=== PATIENT | female | born 1955 | race Caucasian/White ===

== ENCOUNTER 2023-03-22 07:47 | Outpatient (OUT) | payer MEDICARE, MEDICAID, SELFPAY ==
--- NOTE | 2023-03-22 08:12 | CT_ITS ---
[address] [address] Patient Name: OLIVIA RASCON MRN: [id number] date: 1955 Sex: F Assigned Patient Location: CT Current Patient Location: CT Accession/Order Number: [id number] Exam Date: 03/22/2023 08:00 Report Date: 03/22/2023 09:00 At the request of: KIERSTEN ÁLVAREZ Procedure: CT chest high res EXAMINATION: CT chest high res HISTORY: Chronic Cough R05.3 COMPARISON: No relevant comparison available. TECHNIQUE: Axial images were obtained at 10 mm intervals during inspiration and expiration in the supine and prone positions. No IV contrast given. Dose reduction techniques were achieved by using automated exposure control and/or adjustment of mA and/or kV according to patient size and/or use of iterative reconstruction technique. FINDINGS: LUNGS: No emphysema, subpleural honeycombing or intralobular septal thickening is observed. Some minimal linear opacities medial right lower lobe, atelectasis or scar. Few scattered punctate pulmonary nodules partially visualized, nonspecific PLEURA: No mass, effusion, or pneumothorax. DENNIS: No mass or adenopathy. MEDIASTINUM: No mass or adenopathy. CHEST WALL: No mass or axillary adenopathy LIMITED ABDOMEN: No suspicious findings. Limited images of the upper abdomen. OTHER: Negative. IMPRESSION: No significant interstitial lung disease Electronically authenticated by: DEVON CORTÉS Date: 03/22/2023 09:00
[2023-03-22 08:32] LABS: Basophils Absolute Auto 0.1 10^3/uL (0.0-0.1); Basophils Percent Auto 1.3 % (0.2-2.0); Eosinophils Absolute Auto 0.2 10^3/uL (0.0-0.7); Eosinophils Percent Auto 2.8 % (0.9-7.0); Hematocrit 38.8 % (36.0-48.0); Hemoglobin 12.7 g/dL (12.0-16.0); Immature Granulocytes Abs Auto 0.03 10^3/uL (0.00-0.03); Immature Granulocytes Pct Auto 0.6 % (0.0-0.5); Lymphocytes Absolute Auto 1.3 10^3/uL (1.2-3.8); Lymphocytes Percent Auto 23.6 % (20.5-60.0); Mean Corpuscular HGB Conc 32.7 g/dL (29.9-35.2); Mean Corpuscular Hemoglobin 31.4 pg (26.7-34.0); Mean Corpuscular Volume 95.8 fL (81.0-99.0); Mean Platelet Volume 8.5 fL (9.5-13.5); Monocytes Absolute Auto 0.4 10^3/uL (0.3-0.8); Monocytes Percent Auto 8.2 % (1.7-12.0); Neutrophils Absolute Auto 3.4 10^3/uL (1.4-6.5); Neutrophils Percent Auto 63.5 % (43.0-75.0); Platelet Count 188 10^3/uL (150-450); Red Blood Count 4.05 10^6/uL (4.20-5.40); Red Cell Distribution Width 13.7 % (11.0-15.0); White Blood Count 5.3 10^3/uL (4.0-11.0)
--- NOTE | 2023-03-22 09:44 | RT_ITS ---
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 Findings were considered accurate and reproducible, with exception of DLCO which did not meet ATS standards. Both pre- and post-bronchodilator values utilized for spirometry. No prior studies available for comparison. Spirometry (based on pre-bronchodilator values): -FEV1/FVC: Normal @ 83% -FEV1: Reduced @ 76% -FVC: Mild-moderately reduced @ 70% -There is a partial bronchodilator response in FVC which meets ~200mL increase but <12% change. Lung volumes by plethysmography (based on pre-bronchodilator values): -RV: Normal @ 88% -TLC: Normal @ 95% Diffusion capacity: -DLCO: Mild reduction @ 77% when corrected for Hb 12.7g/dL Flow-volume loop: -Mild restrictive pattern Impressions: -Mild-moderate restrictive pattern on spirometry without evidence of actual restriction based on normal lung volumes - this is consistent with an obesity pattern (stated BMI 48.1). Mild diffusion impairment. The restriction may be obscuring an underlying obstruction such as COPD or asthma. Clinical correlation required. Electronically Signed On 03-27-2023 7:52:49 EDT by Shahriar Luciano
[2023-03-22] MEDS: ALBUTEROL SULFATE 2.5 MG/3 ML VIAL NEB IH (10:03)
[2023-03-29 00:06] LABS: Immunoglobulin E, Total 15 IU/mL (6-495)
== END 2023-03-22 07:48 | disposition home or self-care (01) ==
LOC: CT 07:47
PROVIDERS: PCP Family Medicine; Visit Provider Internal Medicine
DX: R05.3 Chronic cough (principal); J44.9 Chronic obstructive pulmonary disease, unspecified; J30.2 Other seasonal allergic rhinitis
CPT/HCPCS: 36415; 71250; 82785; 85025; 94060; 94726; 94729

== ENCOUNTER 2023-05-14 07:56 | Outpatient (OUT) | payer MEDICARE, MEDICAID, SELFPAY ==
--- NOTE | 2023-05-14 08:20 | XR_ITS ---
The [address] [address] Patient Name: OLIVIA RASCON MRN: [id number] date: 1955 Sex: F Assigned Patient Location: [facility] Current Patient Location: [facility] Accession/Order Number: [id number] Exam Date: 05/14/2023 08:12 Report Date: 05/14/2023 08:57 At the request of: JO-ANN LEAVITT Procedure: XR DEXA axial skeleton EXAMINATION: XR DEXA axial skeleton HISTORY: Primary Ovarian Failure COMPARISON: No relevant comparison available. TECHNIQUE: Dual-energy X-ray absorptiometry (DXA) was performed. FINDINGS: SPINE ANALYSIS: Average bone mineral density is 1.460 g/cm2. T-score (standard deviation relative to young adult mean): 2.2 . HIP ANALYSIS: Lowest bone mineral density is within the right femoral neck, 0.931 g/cm2. T-score (standard deviation relative to young adult mean): -0.8 . XR/XR DEXA axial skeleton IMPRESSION: [employer] Classification: Normal - Low Fracture Risk Electronically authenticated by: CRYS HERRERA Date: 05/14/2023 08:57
== END 2023-05-14 07:57 | disposition home or self-care (01) ==
LOC: RAD 07:56
PROVIDERS: PCP Family Medicine; Visit Provider Family Medicine
DX: E28.39 Other primary ovarian failure (principal)
CPT/HCPCS: 77080

== ENCOUNTER 2024-01-15 14:30 | Outpatient (OUT) | payer MEDICARE, MEDICAID, SELFPAY ==
--- NOTE | 2024-01-15 | XR_ITS ---
The [address] [address] Patient Name: OLIVIA RASCON MRN: [id number] date: 1955 Sex: F Assigned Patient Location: Current Patient Location: CARD Accession/Order Number: [id number] Exam Date: 01/15/2024 14:32 Report Date: 01/17/2024 05:16 At the request of: NAM PATTERSON Procedure: XR foot JEWEL min 3V EXAMINATION: XR foot JEWEL min 3V HISTORY: BILATERAL FOOT PAIN ; bilateral second digit hammertoe COMPARISON: No relevant comparison available. FINDINGS: RIGHT FINDINGS: BONES: Flexion of the second toe without appreciable joint abnormality. No fracture, dislocation, bone lesion. SOFT TISSUES: No visible soft tissue swelling. OTHER: Negative. LEFT FINDINGS: BONES: Flexion of the second toe without appreciable joint abnormality. Mild degenerative changes of the first metatarsophalangeal joint. Small calcaneal plantar spur. SOFT TISSUES: No visible soft tissue swelling. OTHER: Negative. XR/XR foot JEWEL min 3V IMPRESSION: RIGHT CONCLUSION: No acute bone abnormality. Flexion of second toe consistent with patient history. LEFT CONCLUSION: Flexion of second toe consistent with patient history. Mild degenerative changes of the first metatarsophalangeal joint. Electronically authenticated by: CRYS HERRERA Date: 01/17/2024 05:16
== END 2024-01-15 14:31 | disposition home or self-care (01) ==
LOC: EC 14:30
PROVIDERS: PCP Family Medicine; Visit Provider Podiatrist Foot & Ankle Surgery
DX: M79.671 Pain in right foot (principal); M79.672 Pain in left foot
CPT/HCPCS: 73630

== ENCOUNTER 2024-01-31 12:48 | Outpatient (OUT) | payer MEDICARE, MEDICAID, SELFPAY ==
--- NOTE | 2024-01-31 13:00 | CA_ITS ---
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 Right: - no significant pressure gradient between cuffs - normal [place] Left: - significant pressure gradient between the calf and DP cuffs - normal [place] Impression: - normal arterial evaluation of the lower extremities without hemodynamic impairment of the B/L lower extremities at rest. Right AZ 1.12, left AZ 1.12. - normal B/L TBI Electronically Signed On 02-01-2024 8:15:06 EDT by SALVATORE BISHOP
--- OUTSIDE RECORDS SUMMARY | 2024-01-31 13:09 | XMS_ITS | CCD ---
Author Organization [facility] Care Team Providers Care Retail Sales Associate Bilingual Name Role Phone Phuc Omalley Unavailable AICHHOLZ, PIPE FITTER WELDING ALTA Admitting Unavailable AICHHOLZ, PIPE FITTER WELDING ALTA Primary Care Unavailable AICHHOLZ, PIPE FITTER WELDING ALTA Attending Unavailable AICHHOLZ, PIPE FITTER WELDING ALTA Consulting Unavailable AICHHOLZ, PIPE FITTER WELDING ALTA Admitting Unavailable AICHHOLZ, PIPE FITTER WELDING ALTA Attending Unavailable AICHHOLZ, PIPE FITTER WELDING ALTA Consulting Unavailable AICHHOLZ, PIPE FITTER WELDING ALTA Primary Care Unavailable HOY ., DR CANTU Admitting Unavailable HOY ., DR CANTU Attending Unavailable HOY ., DR CANTU Consulting Unavailable AICHHOLZ, PIPE FITTER WELDING ALTA Primary Care Unavailable AICHHOLZ, PIPE FITTER WELDING ALTA Admitting Unavailable AICHHOLZ, PIPE FITTER WELDING ALTA Attending Unavailable AICHHOLZ, PIPE FITTER WELDING ALTA Primary Care Unavailable SAMSA ., KIERSTEN Attending Unavailable SAMSA ., KIERSTEN Consulting Unavailable SAMSA ., KIERSTEN Admitting Unavailable AICHHOLZ, PIPE FITTER WELDING ALTA Primary Care Unavailable AICHHOLZ, PIPE FITTER WELDING ALTA Primary Care Unavailable DR DEVON ALCANTARA V Consulting Unavailable AICHHOLZ, PIPE FITTER WELDING ALTA Admitting Unavailable AICHHOLZ, PIPE FITTER WELDING ALTA Referring Unavailable AICHHOLZ, PIPE FITTER WELDING ALTA Attending Unavailable AICHHOLZ, PIPE FITTER WELDING ALTA Consulting Unavailable AICHHOLZ, PIPE FITTER WELDING ALTA Primary Care Unavailable SAMSA ., KIERSTEN Attending Unavailable SAMSA ., KIERSTEN Consulting Unavailable SAMSA ., KIERSTEN Admitting Unavailable OLVIN BARRY Consulting Unavailable SAMSA ., KIERSTEN Attending Unavailable AICHHOLZ, PIPE FITTER WELDING ALTA Primary Care Unavailable SAMSA ., KIERSTEN Consulting Unavailable SAMSA ., KIERSTEN Admitting Unavailable AICHHOLZ, PIPE FITTER WELDING ALTA Primary Care Unavailable SAMSA ., KIERSTEN Attending Unavailable SAMSA ., KIERSTEN Admitting Unavailable Bashir Alonzo Primary Care Physician Tommy Stevenson Attending Unavailable NONE, XXXX Referring Unavailable RAY, Feliz R Attending Unavailable RAY, Feliz R Admitting Unavailable RAY, Feliz R Referring Unavailable RAY, Feliz R Attending Unavailable RAY, Feliz R Admitting Unavailable RAY, Feliz R Referring Unavailable RossBashir Attending Unavailable RossBashir Attending Unavailable NILL, Davie R Referring Unavailable NILL, Davie R Attending Unavailable NILL, Davie R Admitting Unavailable Cally, Vipin L Attending Unavailable Cally, Vipin L Admitting Unavailable Jenna, COOK HELPER FRUIT Polina L Attending Unavailable Jenna, COOK HELPER FRUIT Polina L Admitting Unavailable RAY, Feliz R Attending Unavailable RAY, Feliz R Admitting Unavailable RAY, Feliz R Referring Unavailable RAY, Feliz R Attending Unavailable RAY, Feliz R Admitting Unavailable RAY, Feliz R Referring Unavailable Bashir Alonzo Attending Unavailable Bashir Alonzo Attending Unavailable Bashir Alonzo Attending Unavailable Bashir Alonzo Attending Unavailable Bashir Alonzo Referring Unavailable ELIZABETH, LIT Law Attending Unavailab le RAY, Feliz R Attending Unavailable RAY, Feliz R Attending Unavailable RossBashir Attending Unavailable Bashir Alonzo Attending Unavailable KEERTHIPERLITA Attending Unavailable Bashir Alonzo Attending Unavailable ELIZABETHLIT Attending Unavailab LIT Slade Attending Unavailab LIT Slade Attending Unavailab Bernardino Hernández Referring Unavaila Bernardino Gastelum Attending Unavaila Bernardino Gastelum Consulting Unavaila ble Bernardino Licona Admitting Unavaila ble Bernardino Licona Consulting Unavaila Bernardino Gastelum Consulting Unavaila ble Bernardino Licona Admitting Unavaila ble Bernardino Licona Referring Unavaila ble Bernardino Licona Attending Unavaila Bashir Ruiz Referring Unavailable Bernardino Licona Attending Unavaila ble Allergies Allergy Classification Reported Allergen(s) Allergy Type Date of Onset Reaction(s) Facility (1 source) Adhesive agent Drug allergy Unknown [facility] Other (14 sources) Ciprofloxacin; Translations: [ciprofloxacin] Drug Allergy Weal (disorder) [facility] (1 source) Codeine Drug Allergy Unknown [facility] Other (14 sources) Morphine; Translations: [morphine] Drug Allergy Unknown [facility] (1 source) Ciprofloxacin Drug Allergy [facility] Repository (2 sources) Codeine; Translations: [codeine] Drug Allergy [facility] Rep[facility] (13 sources) Desonide; Translations: [desonide topical] Drug Allergy Unknown [facility] Rep[facility] (1 source) Morphine Drug Allergy [facility] Rep[facility] (12 sources) Codeine; Translations: [codeine] Drug Allergy Unknown [facility] (1 source) Desonide; Translations: [desonide topical] Drug Allergy [facility] Repository Medications Current Medications Medication Drug Class(es) Dates Sig (Normalized) Sig (Original) Acetaminophen / HYDROcodone (1 source) Opioid Agonist HYDROcodone-Acet a minophen Active Albuterol (1 source) beta2-Adrenergic Agonist Albuterol Active Breztri Aerosphere inhalation aerosol (6 sources) Start: 09-10-2023 take 2 puff(s) by inhalation twice daily Breztri Aerosphere inhalation aerosol 2 puff(s), Inhalation, BID, Refill(s) 0 Start Date: 09/10/23 Status: Ordered budesonide/formoterol /glycopyrrolate 160 mcg-4.8 mcg-9 mcg/inh inhalation aerosol (4 sources) Start: 04-02-2023 take 2 puff(s) by inhalation three times daily budesonide/formot paulino/glycopyrrola te 160 mcg-4.8 mcg-9 mcg/inh inhalation aerosol 2 puff(s), Inhalation, TID, Refill(s) 0 Start Date: 04/02/23 Status: Ordered Start: 04-02-2023 take 2 puff(s) by inhalation twice daily budesonide/formoterol/glycopyrrolate 160 mcg-4.8 mcg-9 mcg/inh inhalation aerosol 2 puff(s), Inhalation, BID, Refill(s) 0 Start Date: 04/02/23 Status: Ordered Calcium (1 source) Phosphate Binder, Calcium Calcium Active Calcium Citrate / Vitamin D (9 sources) Start: calcium-vitamin D Daily, Refill(s) 0 Start Date: 05/07/23 Status: Ordered celecoxib 100 mg oral capsule (13 sources) Nonsteroidal Anti-inflammatory Drug Start: take 1 capsule by mouth twice daily as needed for arthritis celecoxib 100 mg Cap 100 mg = 1 cap(s), Oral, BID, PRN for arthritis, # 180 cap(s), Refills(s) 1, Pharmacy: [facility]/pharmacy #[id number], 158, cm, 09/10/23 13:07:00 EST, Height/Length Dosing, 120.2, kg, 09/10/23 13:07:00 EST, Weight Dosing Start Date: 09/10/23 Status: Ordered Start: 04-02-2023 take 1 capsule by mo ut twice daily as needed for arthritis celecoxib 100 mg Cap 100 mg = 1 cap(s), Oral, BID, PRN for arthritis, # 180 cap(s), Refills(s) 1, Pharmacy: [facility]/pharmacy #[id number], 157, cm, 04/02/23 14:58:00 EDT, Height/Length Dosing, 121.7, kg, 04/02/23 14:58:00 EDT, Weight Dosing Start Date: 04/02/23 Status: Ordered Start: 01-01-2023 take 1 capsule by mo [facility] twice daily as needed for arthritis celecoxib 100 mg Cap 100 mg = 1 cap(s), Oral, BID, PRN for arthritis, # 180 cap(s), Refills(s) 0 Start Date: 01/01/23 Status: Ordered Celecoxib Active cephalexin 500 mg oral capsule (4 sources) Cephalosporin Antibacterial Start: 10-01-2023 take 1 capsule by mouth twice daily Keflex 500 mg Cap 500 mg = 1 cap(s), Oral, BID, Start the day prior to procedure, # 14 cap(s), Refills(s) 0, Pharmacy: [facility]/pharmacy #[id number], 158, cm, 09/10/23 13:07:00 EST, Height/Length Dosing, 120.2, kg, 09/10/23 13:07:00 EST, Weight Dosing Start Date: 10/01/23 Status: Ordered Start: 05-24-2023 take 1 capsule by mo uth once daily Keflex 500 mg Cap 500 mg = 1 cap(s), Oral, Daily, Take 1 capsule the day before the procedure and 1 capsule after the procedure, # 2 cap(s), Refills(s) 0, Pharmacy: [facility]/pharmacy #[id number], 158, cm, 05/24/23 10:23:00 EDT, Height/Length Dosing, 118, kg, 05/24/23 10:23:00 EDT... Start Date: 05/24/23 Status: Ordered DULoxetine 60 mg delayed release oral capsule (13 sources) Serotonin and Norepinephrine Reuptake Inhibitor Start: 09-10-2023 take 1 capsule by mouth once daily duloxetine 60 mg oral delayed release capsule 60 mg = 1 cap(s), Oral, Daily, # 90 cap(s), Refills(s) 1, Pharmacy: [facility]/pharmacy #[id number], 158, cm, 09/10/23 13:07:00 EST, Height/Length Dosing, 120.2, kg, 09/10/23 13:07:00 EST, Weight Dosing Start Date: 09/10/23 Status: Ordered Start: 04-02-2023 take 1 capsule by mo [facility] once daily duloxetine 60 mg oral delayed release capsule 60 mg = 1 cap(s), Oral, Daily, # 90 cap(s), Refills(s) 0, Pharmacy: [facility]/pharmacy #[id number], 157, cm, 04/02/23 14:58:00 EDT, Height/Length Dosing, 121.7, kg, 04/02/23 14:58:00 EDT, Weight Dosing Start Date: 04/02/23 Status: Ordered Start: 01-01-2023 duloxetine 60 mg oral delayed release capsule Refills(s) 0 Start Date: 01/01/23 Status: Ordered DULoxetine HCl A ctive 60 actuat fluticasone propionate 0.25 mg/actuat / salmeterol 0.05 mg/actuat dry powder inhaler (2 sources) Corticosteroid, beta2-Adrenergic Agonist Start: 01-01-2023 take 1 puff(s) by mouth twice daily Wixela Inhub 250 mcg-50 mcg inhalation powder INHALE 1 PUFF BY MOUTH TWICE A DAY FOR 30 DAYS Start Date: 01/01/23 Status: Ordered Glucosamine (10 sources) Start: 05-07-2023 glucosamine Oral, Daily, Refills(s) 0 Start Date: 05/07/23 Status: Ordered Glucosamine Acti ve hydrOXYzine (1 source) Antihistamine hydrOXYzine HCl Active losartan potassium 50 mg oral tablet (13 sources) Angiotensin 2 Receptor Sumanth Start: take 1 tablet by mouth once daily losartan 50 mg Tab 50 mg = 1 tab(s), Oral, Daily, # 90 tab(s), Refills(s) 1, [id number], cm, 09/10/23 13:07:00 EST, Height/Length Dosing, 120.2, kg, 09/10/23 13:07:00 EST, Weight Dosing Start Date: 09/10/23 Status: Ordered Start: 04-02-2023 take 1 tablet by velvet th once daily losartan 50 mg Tab 50 mg = 1 tab(s), Oral, Daily, # 90 tab(s), Refills(s) 1, [id number], cm, 04/02/23 14:58:00 EDT, Height/Length Dosing, 121.7, kg, 04/02/23 14:58:00 EDT, Weight Dosing Start Date: 04/02/23 Status: Ordered Start: 01-01-2023 take 1 tablet by velvet th once daily losartan 50 mg Tab 50 mg = 1 tab(s), Oral, Daily, # 90 tab(s), Refills(s) 0 Start Date: 01/01/23 Status: Ordered Losartan Potassi um Active 24 hr mirabegron 50 mg extended release oral tablet (2 sources) beta3-Adrenergic Agonist Start: 01-21-2024 End: 01-15-2025 take 1 tablet by mouth once daily Myrbetriq 50 mg oral tablet, extended release 50 mg = 1 tab(s), Oral, Daily, X 30 day(s), # 30 tab(s), Refills(s) 11, Pharmacy: [facility]/pharmacy #[id number], 158, cm, 01/21/24 8:26:00 EDT, Height/Length Dosing, 118, kg, 01/21/24 8:26:00 EDT, Weight Dosing Start Date: 01/21/24 Stop Date: 01/15/25 Status: Ordered Misc Medication (3 sources) Start: 05-07-2023 Misc Medication cognium, Daily Start Date: 05/07/23 Status: Ordered Multivitamin preparation (10 sources) Start: 05-07-2023 multivitamin Daily, Refill(s) 0 Start Date: 05/07/23 Status: Ordered Multivitamin Act carmelita 24 hr oxybutynin chloride 10 mg extended release oral tablet (2 sources) Cholinergic Muscarinic Antagonist Start: 01-01-2023 take 1 tablet by mouth once daily oxybutynin 10 mg ER Tab 10 mg = 1 tab(s), Oral, Daily, # 30 tab(s), Refills(s) 0 Start Date: 01/01/23 Status: Ordered pantoprazole 40 mg delayed release oral tablet (13 sources) Proton Pump Inhibitor Start: 09-10-2023 take 1 tablet by mouth twice daily Pantoprazole [address] Tab 40 mg = 1 tab(s), Oral, BID, # 180 tab(s), Refills(s) 1, [id number], cm, 09/10/23 13:07:00 EST, Height/Length Dosing, 120.2, kg, 09/10/23 13:07:00 EST, Weight Dosing Start Date: 09/10/23 Status: Ordered Start: 04-02-2023 take 1 tablet by velvet th once daily Pantoprazole [address] Tab 40 mg = 1 tab(s), Oral, Daily, # 90 tab(s), Refills(s) 1, Pharmacy: [facility]/pharmacy #[id number], 157, cm, 04/02/23 14:58:00 EDT, Height/Length Dosing, 121.7, kg, 04/02/23 14:58:00 EDT, Weight Dosing Start Date: 04/02/23 Status: Ordered Start: 01-01-2023 [address]op[address] Tab Refills(s) 0 Start Date: 01/01/23 Status: Ordered Pantoprazole Sod ium Active phentermine hydrochloride 37.5 mg oral capsule (2 sources) Sympathomimetic Amine Anorectic Start: 01-23-2024 Adipex-P 37.5 mg ora l capsule 37.5 mg = 1 cap(s), Oral, Daily, wgt 246lbs-111kg BMI 44.86, # 30 cap(s), Refills(s) 1, Pharmacy: [facility]/pharmacy #[id number], 158, cm, 01/23/24 8:23:00 EDT, Height/Length Dosing, 112, kg, 01/23/24 8:23:00 EDT, Weight Dosing Start Date: 01/23/24 Status: Ordered Start: 12-31-2023 Adipex-P 37.5 mg oral capsule 37.5 mg = 1 cap(s), Oral, Daily, wgt 247lbs-112kg BMI 44.86, # 30 cap(s), Refills(s) 0, Pharmacy: [id number], 158, cm, 12/27/23 10:27:00 EDT, Height/Length Dosing, 112.5, kg, 12/27/23 10:27:00 EDT, Weight Dosing Start Date: 12/31/23 Status: Ordered 60 actuat tiotropium 0.0025 mg/actuat inhalation spray (2 sources) Anticholinergic Start: 01-01-2023 Spiriva Respimat 60 ACT 2.5 mcg/inh inhalation aerosol Refills(s) 0 Start Date: 01/01/23 Status: Ordered traZODone hydrochloride 150 mg oral tablet (13 sources) Serotonin Reuptake Inhibitor Start: 11-04-2023 take 1 tablet by mouth once daily at bedtime traZODONE 150 mg Tab See Instructions, TAKE 1 TABLET BY MOUTH EVERYDAY AT BEDTIME, # 90 tab(s), Refills(s) 1, Pharmacy: [id number], 158, cm, 10/25/23 10:30:00 EST, Height/Length Dosing, 119.6, kg, 10/25/23 10:30:00 EST, Weight Dosing Start Date: 11/04/23 Status: Ordered Start: 04-02-2023 take 1 tablet by velvet th once daily at bedtime traZODONE 150 mg Tab 150 mg = 1 tab(s), Oral, Once a day (at bedtime), # 90 tab(s), Refills(s) 1, Pharmacy: [facility]/pharmacy #[id number], 157, cm, 04/02/23 14:58:00 EDT, Height/Length Dosing, 121.7, kg, 04/02/23 14:58:00 EDT, Weight Dosing Start Date: 04/02/23 Status: Ordered Start: 01-01-2023 traZODONE 150 mg Tab Refills(s) 0 Start Date: 01/01/23 Status: Ordered traZODone HCl Ac tive trospium chloride 20 mg oral tablet (2 sources) Cholinergic Muscarinic Antagonist Start: 01-01-2023 take 1 tablet by mouth twice daily trospium 20 mg oral tablet 20 mg = 1 tab(s), Oral, BID, # 180 tab(s), Refills(s) 0 Start Date: 01/01/23 Status: Ordered Wixela Inhub (1 source) Wixela Inhub Active Problems Active Problems Problem Classification Problem Date Documented Date Episodic/Chronic Abdominal hernia (20 sources) Hernia of abdominal cavity; Translations: [Unspecified abdominal hernia without obstruction or gangrene] Onset: 01-11-20 Episodic Abdominal pain (7 sources) Generalized abdominal pain; Translations: [Generalized abdominal pain] Onset: 01-11-20 Episodic Anxiety disorders (12 sources) Anxiety 01-01-2023 Chronic Asthma (12 sources) Asthma 01-04-2023 Chronic Chronic obstructive pulmonary disease and bronchiectasis (16 sources) Chronic obstructive pulmonary disease, unspecified; Translations: [Chronic obstructive lung disease] Onset: 12-06-19 Chronic Disorders of lipid metabolism (12 sources) Hypercholesterolemia 01-04-2023 Chronic Esophageal disorders (12 sources) Gastroesophageal reflux disease without esophagitis 01-01-2023 Chronic Essential hypertension (14 sources) Essential (primary) hypertension; Translations: [Hypertensive disorder] Onset: 04-20-2001-01-2023 Chronic Genitourinary symptoms and ill-defined conditions (20 sources) Urinary incontinence; Translations: [Mixed incontinence] Onset: 04-30-2001-01-2023 Chronic Mood disorders (12 sources) Depressive disorder; Translations: [Single episode of major depression in full remission] 01-01-2023 Chronic Osteoarthritis (12 sources) Osteoarthritis 01-01-2023 Chronic Other diseases of bladder and urethra (2 sources) Disorder of bladder; Translations: [Bladder disorder, unspecified] Onset: 10-22-19 Chronic Other diseases of bladder and urethra (4 sources) Lesion of bladder 10-22-2023 Chronic Other gastrointestinal disorders (1 source) Flatulence; Translations: [Gas] Episodic Other gastrointestinal disorders (1 source) Diarrhea; Translations: [Diarrhea, unspecified] Episodic Other lower respiratory disease (6 sources) Multiple nodules of lung 12-15-2023 Episodi c Comment on above: noted in 04/23/2023 Pulmonology Consult Note page 1. added per [facility] policy. Other nutritional; endocrine; and metabolic disorders (1 source) Morbid (severe) obesity due to excess calories; Translations: [MORBID SEVERE OBES D/T EXCESS VICKY] Onset: 07-02-20 Chronic Other nutritional; endocrine; and metabolic disorders (1 source) Body mass index (BMI) 40.0-44.9, adult; Translations: [BODY MASS INDEX BMI 40.0-44.9 ADULT] Onset: 07-02-20 Chronic Other nutritional; endocrine; and metabolic disorders (12 sources) Body mass index 40+ - severely obese 01-10-2023 Chronic Other nutritional; endocrine; and metabolic disorders (6 sources) Morbid obesity 09-06-2023 Chronic Comment on above: noted in 04/23/2023 Pulmonology Consult Note page 1. added per [facility] policy. Other nutritional; endocrine; and metabolic disorders (2 sources) Calorie overload 11-25-2023 Chronic Other screening for suspected conditions (not mental disorders or infectious disease) (4 sources) Encounter for screening mammogram for malignant neoplasm of breast; Translations: [ENC SCR MAMMO MALIG NEOPLASM BREAST] Onset: 10-02-19 Episodic Other upper respiratory infections (6 sources) Acute upper respiratory infection 09-10-2023 Episodic Residual codes; unclassified (6 sources) Obstructive sleep apnea syndrome 09-06-2023 Chronic Comment on above: noted in 04/23/2023 Pulmonology Consult Note page 1. added per [facility] policy. Residual codes; unclassified (12 sources) Insomnia 01-01-2023 Episodic Residual codes; unclassified (6 sources) Sleep disorder 01-04-2023 Episodic Screening and history of mental health and substance abuse codes (6 sources) Tobacco use and exposure - finding 09-06-2023 Chronic Comment on above: noted in 04/23/2023 Pulmonology Consult Note page 1. added per [facility] policy. Spondylosis; intervertebral disc disorders; other back problems (4 sources) Other intervertebral disc degeneration, lumbar region; Translations: [OTH IV DISC DEGEN LUMBAR REGION] Onset: 02-16-20 Chronic Unclassified (3 sources) CONTACT W/AND (SUSP) EXPOS COVID-19; Translations: [CONTACT W/AND (SUSP) EXPOS COVID-19] Onset: 09-01-20 22 Unclassified (1 source) COUGH, UNSPECIFIED; Translations: [COUGH, UNSPECIFIED] Onset: 09-01-20 22 Unclassified (6 sources) History of SARS-CoV-2 09-06-2023 Comment on above: noted in 04/23/2023 Pulmonology Consult Note page 1. added per [facility] policy. Past or Other Problems Problem Classification Problem Date Documented Da te Episodic/Chronic Diabetes mellitus without complication (4 sources) Hyperglycemia, unspecified; Translations: [HYPERGLYCEMIA UNSPECIFIED] Onset: 04-17-2022 Episodic Genitourinary symptoms and ill-defined conditions (1 source) Frequency of micturition; Translations: [FREQUENCY OF MICTURITION] Onset: 04-20-2022 Episodic Immunizations and screening for infectious disease (4 sources) Encounter for screening for other viral diseases; Translations: [ENC SCREENING FOR OTH VIRAL DZ] Onset: 06-28-2022 Episodic Other gastrointestinal disorders (1 source) Diarrhea, unspecified Onset: 12-26-2021 Resolved: 12-26-2021 Episodic Other lower respiratory disease (1 source) Shortness of breath; Translations: [SHORTNESS OF BREATH] Onset: 09-01-2022 Episodic Unclassified (1 source) CONTACT W/AND (SUSP) EXPOS COVID-19; Translations: [CONTACT W/AND (SUSP) EXPOS COVID-19] Onset: 08-27-2022 Results Test Name Value Interpretation Reference Range [facility]/ in Noteon 01-24-2024 Heart and Vascular Office/Clinic Note Chief Complaint 2 month F/U Testing results History of Present Illness Patient is a 68-year-old female with past medical history of anxiety, asthma, COPD, GERD, HLD, hypertension. Patient presents for telehealth visit today. Patient calls in to discuss testing results. Cardiolite stress test and echo since last visit.. Grossly normal. Echo showed normal EF and normal LV and RH. No significant valvular issues. Stress test was low risk and showed no ischemia. Patient reports she is feeling well and denies chest pain, palpitations, shortness of breath, lightheadedness, swelling in lower extremities. Patient had testing to confirm she was all right to start Adipex, which she is cleared to do at this time. Review of Systems PHQ Score Initial Depression Screen Score: 0 SCORE ROS - Provider Constitutional: no fever, no chills, no sweats, no weakness Respiratory: no shortness of breath, no cough Cardiovascular: no chest pain Neuro: no dizziness. no loss of consciousness Physical Exam No physical exam performed as this was a telehealth visit Cardiac Diagnostics (12/24/2023 10:37 EDT NM Myocardial Spect Multi Stress) CONCLUSIONS: 1. Probably normal adequate treadmill/myocardial perfusion imaging. Negative for ischemia by EKG and myocardial perfusion imaging. 2. Normal TID of 0.98. 3. Normal left ventricular size and function with a left ventricular ejection fraction of 64%. 4. Average exercise capacity for age. 5. Decreased sensitivity due to baseline abnormal EKG and two-day technique. 6. Overall this is a low-risk study. [1] (11/15/2023 08:41 EST Echo Transthoracic Complete) Interpretation Summary Ejection Fraction = 60-65%. Normal LV and RV. No significant valve disease. Normal estimated PA pressure. Normal diastolic filling pattern. [2] Assessment/Plan 1. Hypertension (I10: Essential (primary) hypertension) Patient currently taking losartan 50 mg daily for blood pressure. Blood pressure was well-controlled at her last office visit, did not obtain vitals today as it was a telehealth visit. Continue with current medication. Patient is cleared to try Adipex Follow-up with our office as needed Portions of this record may have been created with voice recognition artificial intelligence software, specifically [employer], [employer] and or [employer]. Substitutions may have occurred due to the inherent limitations of voice recognition and artificial intelligence software. Follow-up No qualifying data available Problem List/Past Medical History Ongoing Abdominal hernia Acute URI Anxiety Asthma BMI 45.0-49.9, adult Chronic obstructive pulmonary disease Excessive dietary caloric intake GERD without esophagitis History of COVID-19 History of tobacco abuse Hypercholesterolemia Insomnia Lesion of bladder Major depressive disorder with single episode, in full remission Mixed incontinence Morbid obesity Multiple pulmonary nodules OWEN (obstructive sleep apnea) Osteoarthritis Primary hypertension Recurrent ventral incisional hernia Urinary incontinence Historical No qualifying data Procedure/Surgical History Cystoscopy (08/27/2023), 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 Medications Adipex-P 37.5 mg oral capsule, 37.5 mg= 1 cap(s), Oral, Daily, 1 refills Breztri Aerosphere inhalation aerosol, 2 puff(s), Inhalation, BID calcium-vitamin D, Daily celecoxib 100 mg Cap, 100 mg= 1 cap(s), Oral, BID, PRN, 1 refills duloxetine 60 mg oral delayed release capsule, 60 mg= 1 cap(s), Oral, Daily, 1 refills glucosamine, Oral, Daily losartan 50 mg Tab, 50 mg= 1 tab(s), Oral, Daily, 1 refills multivitamin, Daily Myrbetriq 50 mg oral tablet, extended release, 50 mg= 1 tab(s), Oral, Daily, 11 refills Pantoprazole [address] Tab, 40 mg= 1 tab(s), Oral, BID, 1 refills traZODONE 150 mg Tab, See Instructions Allergies ciprofloxacin (Hives) codeine (Unknown) desonide topical (Unknown) morphine (Unknown) Social History Alcohol Current, Liquor, 1-2 times per month, Household alcohol concerns: No., 05/07/2023 Substance Abuse Past, Marijuana, Stopped age 33 Years., 01/04/2023 Tobacco Former smoker, quit more than 30 days ago, quit 30 years ago Tobacco Use:. Never Smokeless Tobacco Use:. Cigarettes, 2 per day. Started age 12.0 Years. Stopped age 37 Years. Household tobacco concerns: No., 01/24/2024 Family History Alcoholism: Brother. Diabetes mellitus type 2: Mother. Hypertension: Mother. Stroke: Mother. Immunizations Vaccine Date Status Comments influenza virus vaccine, inactivated 07/23/2023 Recorded influenza virus vaccine, inactivated 08/2022 Recorded SARS-CoV-2 (COVID-19) m (more content not included)... Normal [facility] Comment on above: Result Comment: Elec tronically Signed By: Tommy Stevenson PA-C\Sheilabr\Date and Time Signed: 01/24/24 13:34 EDT Physician Orderon 01-24-2024 Physician Order [id number] 7#1.00TIFF Normal [facility] [place]enson 01-24-2024 Screens [id number] #1.00TIFF Normal [facility] Ambulatory Visit Summaryon 0 01-23-2024 Ambulatory Visit Summary JULIANNE PABON :1955 Visit Date:01/23/2024 Ambulatory Visit Instructions Your Diagnosis Excessive dietary caloric intake Mixed incontinence Anxiety Your Care Team Attending Physician - Bashir Alonzo MD Primary Care Physician - Bashir Alonzo MD This Is Your Medications List phentermine (Adipex-P 37.5 mg oral capsule) Contact prescribing physician if questions or concerns budesonide/formotero l/glycopyrrolate (Breztri Aerosphere inhalation aerosol) calcium-vitamin D celecoxib (celecoxib 100 mg Cap) duloxetine (duloxetine 60 mg oral delayed release capsule) glucosamine losartan (losartan 50 mg Tab) mirabegron (Myrbetriq 50 mg oral tablet, extended release) multivitamin pantoprazole (Pantoprazole [address] Tab) trazodone (traZODONE 150 mg Tab) Procedures Performed Cystoscopy (08/27/2023), 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 Discharge Vitals Heart Rate (Peripheral) 67 Blood Pressure 138/70 Height 158.0 cm Height 62 in Weight 112.0 kg Weight 246.4 lb BMI 44.86 What to do next Scheduled Follow-Up Appointments Saturday 1:00 PM EDT With: Tommy Stevenson PA-C Where: [facility] Saturday 8:20 AM EDT With: ILIANA PACHECO PA-C Where: [facility] Invalid Interpretation Code [address] [place] [address]- \.br\ Saturday 8:00 AM EDT \.br\ With:\.br\ Where: [facility] Office/Clini c Noteon 01-23-2024 Family Medicine Office/Clinic Note Chief Complaint weight loss follow up HPI Staff Julianne is a 68 year old female presenting for follow up weight Weight management Sleeping well:Yes, 6-8 hours Chest pain:No Tremors:No Headaches:No Heart fluttering:No Blurred Vision:No Starting weight: 260.7 lbs Weight last visit: 247.5 lbs Weight this visit: 246.9 lbs PHQ9 0 Patient has not started the Mybetriq as she received notice from insurance it interferes with duloxetine. History of Present Illness - No issues. - Doing well. - Loosing weight. - Feeling good - Not eating regularly. Review of Systems PHQ Score Initial Depression Screen Score: 0 SCORE Physical Exam Vitals & Measurements HR: 67(Peripheral) BP: 138/70 SpO2: 97% HT: 62 in HT: 158.0 cm WT: 112.0 kg WT: 246.4 lb BMI: 44.86 General: alert, no acute distress ENMT: oral mucosa moist, Cardiovascular: regular rate and rhythm, normal peripheral perfusion Respiratory: Lungs CTA, respirations non labored Extremities: no deformity, no trauma Neurological: oriented x 4, LOC appropriate for age, CN II-XII intact, motor strength equal & normal bilaterally, speech normal Abdomen: Soft, Nontender, Non-distended, + BS Assessment/Plan 1. Excessive dietary caloric intake (R63.2: Polyphagia) - Continue on Adipex - Will recheck in 2 months 2. Mixed incontinence (N39.46: Mixed incontinence) - Continue on Mybetriq - Follow up PRN 3. Anxiety (F41.9: Anxiety disorder, unspecified) - Continue on Duloxetine - Stable. - Discuss med interaction. - No concerns, but precautions given. Orders: phentermine, 37.5 mg = 1 cap(s), Oral, Daily, wgt 246lbs-111kg BMI 44.86, # 30 cap(s), Refills(s) 1, Pharmacy: [facility]/pharmacy #[id number], 158, cm, 01/23/24 8:23:00 EDT, Height/Length Dosing, 112, kg, 01/23/24 8:23:00 EDT, Weight Dosing Follow-up No qualifying data available Problem List/Past Medical History Ongoing Abdominal hernia Acute URI Anxiety Asthma BMI 45.0-49.9, adult Chronic obstructive pulmonary disease Excessive dietary caloric intake GERD without esophagitis History of COVID-19 History of tobacco abuse Hypercholesterolemia Insomnia Lesion of bladder Major depressive disorder with single episode, in full remission Mixed incontinence Morbid obesity Multiple pulmonary nodules OWEN (obstructive sleep apnea) Osteoarthritis Primary hypertension Recurrent ventral incisional hernia Urinary incontinence Historical No qualifying data Procedure/Surgical History Cystoscopy (08/27/2023), 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 Medications Adipex-P 37.5 mg oral capsule, 37.5 mg= 1 cap(s), Oral, Daily, 1 refills Breztri Aerosphere inhalation aerosol, 2 puff(s), Inhalation, BID calcium-vitamin D, Daily celecoxib 100 mg Cap, 100 mg= 1 cap(s), Oral, BID, PRN, 1 refills duloxetine 60 mg oral delayed release capsule, 60 mg= 1 cap(s), Oral, Daily, 1 refills glucosamine, Oral, Daily losartan 50 mg Tab, 50 mg= 1 tab(s), Oral, Daily, 1 refills multivitamin, Daily Myrbetriq 50 mg oral tablet, extended release, 50 mg= 1 tab(s), Oral, Daily, 11 refills, Not taking Pantoprazole [address] Tab, 40 mg= 1 tab(s), Oral, BID, 1 refills traZODONE 150 mg Tab, See Instructions Allergies ciprofloxacin (Hives) codeine (Unknown) desonide topical (Unknown) morphine (Unknown) Social History Alcohol Current, Liquor, 1-2 times per month, Household alcohol concerns: No., 05/07/2023 Substance Abuse Past, Marijuana, Stopped age 33 Years., 01/04/2023 Tobacco Former smoker, quit more than 30 days ago, quit 30 years ago Tobacco Use:. Never Smokeless Tobacco Use:. Cigarettes, 2 per day. Started age 11.0 Years. Stopped age 37 Years. Household tobacco concerns: No., 01/23/2024 Family History Alcoholism: Brother. Diabetes mellitus type 2: Mother. Hypertension: Mother. Stroke: Mother. Immunizations Vaccine Date Status Comments influenza virus vaccine, inactivated 07/23/2023 Recorded influenza virus vaccine, inactivated 08/2022 Recorded SARS-CoV-2 (COVID-19) mRNA BNT-162b2 vax 08/22/2022 Recorded zoster vaccine, inactivated 09/07/2021 Recorded SARS-CoV-2 (COVID-19) mRNA BNT-162b2 vax 07/21/2021 Recorded zoster vaccine, inactivated 06/13/2021 Recorded influenza virus vaccine, inactivated 06/13/2021 Recorded SARS-CoV-2 (COVID-19) mRNA BNT-162b2 vax 10/26/2020 Recorded 2022-04-10: [id number] SARS-CoV-2 (COVID-19) mRNA BNT-162b2 vax 10/06/2020 Recorded 2022-04-10: TPV60 Normal [facility] Comment on above: Result Comment: Elec tronically Signed By: Bashir Alonzo MD\.br\Date and Time Signed: 01/23/24 08:45 EDT Ambulatory Visit Summaryon 0 01-21-2024 Ambulatory Visit Summary JULIANNE PABON :1955 Visit Date:01/21/2024 Ambulatory Visit Instructions Your Diagnosis Mixed incontinence Lesion of bladder Your Care Team Attending Physician - ILIANA PACHECO PA-C Primary Care Physician - Bashir Alonzo MD This Is Your Medications List budesonide/formotero l/glycopyrrolate (Breztri Aerosphere inhalation aerosol) calcium-vitamin D celecoxib (celecoxib 100 mg Cap) duloxetine (duloxetine 60 mg oral delayed release capsule) glucosamine losartan (losartan 50 mg Tab) multivitamin pantoprazole (Pantoprazole [address] Tab) phentermine (Adipex-P 37.5 mg oral capsule) trazodone (traZODONE 150 mg Tab) Procedures Performed Cystoscopy (08/27/2023), 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 Discharge Vitals Heart Rate (Peripheral) 65 Respiratory Rate 19 Blood Pressure 123/67 Height 158 cm Height 62 in Weight 118 kg Weight 259.6 lb BMI 47.27 What to do next Scheduled Follow-Up Appointments 2023 8:30 AM EDT With: Clinton YBARRA, Bashir Warner Where: [facility] Invalid Interpretation Code [address] [place] [address] [place] [address]- \.br\ Saturday 8:00 AM EDT \.br\ With:\.br\ Where: [facility] Patient Educationon 01-21-20 Patient Education Urology Urinary Incontinence Urinary incontinence refers to a condition in which a person is unable to control where and when to pass urine. A person with this condition will urinate involuntarily. This means that the person urinates when he or she does not mean to. What are the causes? This condition may be caused by: ? Medicines. ? Infections. ? Constipation. ? Overactive bladder muscles. ? Weak bladder muscles. ? Weak pelvic floor muscles. These muscles provide support for the bladder, intestine, and, in women, the uterus. ? Enlarged prostate in men. The prostate is a gland near the bladder. When it gets too big, it can pinch the urethra. With the urethra blocked, the bladder can weaken and lose the ability to empty properly. ? Surgery. ? Emotional factors, such as anxiety, stress, or post-traumatic stress disorder (PTSD). ? Spinal cord injury, nerve injury, or other neurological conditions. ? Pelvic organ prolapse. This happens in women when organs move out of place and into the vagina. This movement can prevent the bladder and urethra from working properly. What increases the risk? The following factors may make you more likely to develop this condition: ? Age. The older you are, the higher the risk. ? Obesity. ? Being physically inactive. ? and childbirth. ? Menopause. ? Diseases that affect the nerves or spinal cord. ? Long-term, or chronic, coughing. This can increase pressure on the bladder and pelvic floor muscles. What are the signs or symptoms? Symptoms may vary depending on the type of urinary incontinence you have. They include: ? A sudden urge to urinate, and passing urine involuntarily before you can get to a bathroom (urge incontinence). ? Suddenly passing urine when doing activities that force urine to pass, such as coughing, laughing, exercising, or sneezing (stress incontinence). ? Needing to urinate often but urinating only a small amount, or constantly dribbling urine (overflow incontinence). ? Urinating because you cannot get to the bathroom in time due to a physical disability, such as arthritis or injury, or due to a communication or thinking problem, such as Alzheimer's disease (functional incontinence). How is this diagnosed? This condition may be diagnosed based on: ? Your medical history. ? A physical exam. ? Tests, such as: ? Urine tests. ? X-rays of your kidney and bladder. ? Ultrasound. ? CT scan. ? Cystoscopy. In this procedure, a health care provider inserts a tube with a light and camera (cystoscope) through the urethra and into the bladder to check for problems. ? Urodynamic testing. These tests assess how well the bladder, urethra, and sphincter can store and release urine. There are different types of urodynamic tests, and they vary depending on what the test is measuring. To help diagnose your condition, your health care provider may recommend that you keep a log of when you urinate and how much you urinate. How is this treated? Treatment for this condition depends on the type of incontinence that you have and its cause. Treatment may include: ? Lifestyle changes, such as: ? Quitting smoking. ? Maintaining a healthy weight. ? Staying active. Try to get 150 minutes of moderate-intensity exercise every week. Ask your health care provider which activities are safe for you. ? Eating a healthy diet. ? Avoid high-fat foods, like fried foods. ? Avoid refined carbohydrates like white bread and white rice. ? Limit how much alcohol and caffeine you drink. ? Increase your fiber intake. Healthy sources of fiber include beans, whole grains, and fresh fruits and vegetables. ? Behavioral changes, such as: ? Pelvic floor muscle exercises. ? Bladder training, such as lengthening the amount of time between bathroom breaks, or using the bathroom at regular intervals. ? Using techniques to suppress bladder urges. This can include distraction techniques or controlled breathing exercises. ? Medicines, such as: ? Medicines to relax the bladder muscles and prevent bladder spasms. ? Medicines to help slow or prevent the growth of a man's prostate. ? Botox injections. These can help relax the bladder muscles. ? Treatments, such as: ? Using pulses of electricity to help change bladder reflexes (electrical nerve stimulation). ? For women, using a medical diagnostic radiographer to prevent urine leaks. This is a small, tampon-like, disposable device that is inserted into the urethra. ? Injecting collagen or carbon beads (bulking agents) into the urinary sphincter. These can help thicken tissue and close the bladder opening. ? Surgery. Follow these instructions at home: Lifestyle ? Limit alcohol and caffeine. These can fill your bladder quickly and irritate it. ? Keep yourself clean to help prevent odors and skin damage. Ask your health care provider about special skin creams and cleansers that can protect the skin from urine. ? (more content not included)... Normal [facility] Office/Clinic Noteon 01-21-2024 Urology Office/Clinic Note Chief Complaint 3 month HPI Staff PRW pt. 3m DX: Mixed Incontinence & Lesion of bladder *No Urology Meds Dysuria: no Incomplete bladder emptying: no Hematuria: no Frequency: every hour, Pt. states she drinks a lot of water Urgency: occasionally Nocturia: 1-2x's Stream: good stream Post void dripping: no Wearing pads/ Depends: Pt. states only at night she will wear a Depends Urge incontinence: not very often Stress incontinence: Pt. states when she is getting out of bed she is leaking Incontinence without Sensory Awareness: no Abdominal pain: no Flank pain: no Review of Systems PHQ Score Initial Depression Screen Score: 0 SCORE no fever, chills, malaise, myalgia. no rash/lesions. no chest pain, palpitations, or SOB. no abdominal pain, nausea, vomiting. no unilateral calf swelling, redness, pain Physical Exam Vitals & Measurements HR: 65(Peripheral) RR: 19 BP: 123/67 HT: 62 in HT: 158 cm WT: 118 kg WT: 259.6 lb BMI: 47.27 General: nontoxic, NAD Mouth: moist mucosa Lungs: normal respiratory effort Cardio: regular rate, good distal perfusion Abdomen: nondistended, no suprapubic distention or tenderness, no CVA tenderness Neurologic: Grossly normal Skin: No rashes or suspicious lesions Assessment/Plan 1. Mixed incontinence (N39.46: Mixed incontinence) Failed Oxybutynin ER 10mg and Trospium. Had no sx improvement and SE of dry mouth and constipation. Had 22 procedures on her bowels due to diverticulitis. Stimulation offered by urology in [place] (pt not clear whether PTNS vs SNM), but does not want to continue to drive to [place] to see this provider, wanted someone closer to home. Pt also did PFPT in [place]. S/p Cysto/Botox 100u 08/27/23 - Had mild improvement of urgency but was still severe especially at nighttime. S/p Botox 100u 10/08/23. PVR 10/22/23 28mL (34mL at prior OV). BBS 20 (20). Wakes up from urge to void, then incontinence before she can physically get out of bed. Only leaks when she coughs during the day. However continues to have urgency. Doesn't feel like there is much noticeable improvement yet. Discussed urinary sxs will continue to improve 6-12 wks after Botox. Advised pt if sxs are still bothersome in a few months, will consider adding a bladder medication in combo w Botox. f/u 3 mos once Botox full effect. TODAY: BBSQ 15-16 poor-good control noticeable improvement during day. was previously wearing pads and changing several times per day, now only wearing 1 throughout the day mostly for protection. big improvement. however still disappointed w overnight sx - namely, urgency and incontinence as soon as she stands up out of bed and starts walking to the bathroom. says PFPT didn't help this issue at all. will try adding on oral bladder control med to see if responds better to it now that she has Botox on board (failed Oxybutynin/Trospium before Botox.) pt already has chronic dry mouth/dry eye/constipation issues so would prefer Beta-3. however she is willing to try anticholinergic if Beta-3 not covered or cost-prohibitive. side effects/risks discussed. rx sent. -Myrbetriq 50mg daily. f/u 2 mos to review efficacy. Ordered: mirabegron, 50 mg = 1 tab(s), Oral, Daily, X 30 day(s), # 30 tab(s), Refills(s) 11, Pharmacy: [facility]/pharmacy #[id number], 158, cm, 01/21/24 8:26:00 EDT, Height/Length Dosing, 118, kg, 01/21/24 8:26:00 EDT, Weight Dosing Body Mass Index (BMI) documented 3008F Complex E&M Add on G2211 Current tobacco non-user 1036F Depression Screening Negative 3352F E&M of Est. Patient Moderate 30-39 Min 39413 Medication list documented in medical record 1159F Most recent diastolic blood pressure <80 mm Hg 3078F Patient screen for fall risk: no falls in last year or 1 fall with no injury in last year 1101F Review of all meds by a prescribing practitioner or clinical pharmacist documented in EHR 1160F Systolic BP <130 mm Hg (Most Recent) 3074F Urnls Dip Stick Auto w/o Microscopy POC 75588 2. Lesion of bladder (N32.9: Bladder disorder, unspecified) S/p Cysto/UD 07/02/23 - Diffuse red flat lesions throughout majority of the mucosa. No evidence of any papillary tumors or stones. No cystitis cystica lesions. Cytology - rare atypical urothelial cells with degeneration. Given Macrobid 100 mg x2mos for red mucosal lesions. Repeat cystoscopy was recommended. S/p Cysto 08/27/23 - lesions resolved. Ordered: mirabegron, 50 mg = 1 tab(s), Oral, Daily, X 30 day(s), # 30 tab(s), Refills(s) 11, Pharmacy: [facility]/pharmacy #[id number], 158, cm, 01/21/24 8:26:00 EDT, Height/Length Dosing, 118, kg, 01/21/24 8:26:00 EDT, Weight Dosing Complex E&M Add on G2211 E&M of Est. Patient Moderate 30-39 Min 80810 Follow-up With When Contact Information ELIZABETH ILIANA MURRIETA, URL Within 3 months [address] [place] [address] Additional Instructions: Patient Education Urinary Incontinence Problem List/Past Medical History Ongoing Abdominal herni (more content not included)... [facility] Comment on above: Result Comment: Elec tronically Signed By: ILIANA PACHECO PA-C\.br\Date and Time Signed: 01/21/24 15:44 EDT Consultation Noteon 01-20-20 Consultation Note [id number] #1.00TIFF [facility] RAD - MISCon 01-17-2024 RAD - MISC [id number] #1.00TIFF [facility] Provider Letteron 01-13-2024 Provider Letter January 13, 2024 JULIANNE PABON [address] [place] [id number] : 1955 To Whom It May Concern, Please excuse the patient above from Jury Duty. They have multiple medical conditions that would prohibit sitting through jury duty. Respectfully, Dr. Bashir Alonzo MD Family Medicine [address] [address] [facility] Ambulatory Visit Summaryon 0 12-27-2023 Ambulatory Visit Summary JULIANNE PABON :1955 Visit Date:12/27/2023 Ambulatory Visit Instructions Your Diagnosis BMI 45.0-49.9, adult Your Care Team Attending Physician - PERLITA PENDLETON CNP Primary Care Physician - Bashir Alonzo MD. 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 Discharge Vitals Heart Rate (Peripheral) 71 Blood Pressure 138/66 Height 158 cm Height 62 in Weight 112.5 kg Weight 247.5 lb BMI 45.06 What to do next Scheduled Follow-Up Appointments Saturday 2:15 PM EDT With: Bashir Alonzo MD Where: [facility] Invalid Interpretation Code [address] [place] [address]- \.br\ 2023 8:30 AM EDT \.br\ With: Bashir Alonzo MD\.br\ Where: [facility] Medicine Office/Clini c Noteon 12-27-2023 Family Medicine Office/Clinic Note Chief Complaint weight loss follow up HPI Staff Patient of Dr. Alonzo presents for 4 week weight loss follow up. Weight management Sleeping well:Yes, 6-8 hours Chest pain:No Tremors:No Headaches:No Heart fluttering:No Blurred Vision:N Starting weight: 118.5 kg/260.7 lbs Starting BMI: 47.47 Today's weight: 112.5 kg/247.5 Today's BMI:45.06 History of Present Illness 68 year old patient of Dr. Alonzo presents today for a refill of phentermine 37.5 mg one tablet po daily. She was started on the medication 4 weeks ago. She denies any adverse effects of the medication. She has lost 13.2 pounds since her last visit. Review of Systems PHQ Score Initial Depression Screen Score: 0 SCORE Constitutional: no fever, no chills, no sweats, no weakness Respiratory: no shortness of breath, no cough, no orthopnea, no wheezing Cardiovascular: no chest pain, no palpitations, no edema Additional ROS info: Except as noted in the above Review of Systems and in the History of Present Illness all other systems have been reviewed and are negative or noncontributory. Physical Exam Vitals & Measurements HR: 71(Peripheral) BP: 138/66 SpO2: 92% HT: 62 in HT: 158 cm WT: 112.5 kg WT: 247.5 lb BMI: 45.06 General: alert, no acute distress Cardiovascular: regular rate and rhythm, normal peripheral perfusion Respiratory: Lungs CTA, respirations non labored Extremities: no deformity, no trauma Neurological: oriented x 4, LOC appropriate for age speech normal Assessment/Plan 1. BMI 45.0-49.9, adult (Z68.42: Body mass index [BMI] 45.0-49.9, adult) Patient has lost 13.2 pounds since her last visit OARRS reviewed and is appropriate Refill phentermine 37.5 mg one capsule po in the AM at this visit Continue with food portion control f/u in 4 weeks Orders: phentermine, 37.5 mg = 1 cap(s), Oral, Daily, # 30 cap(s), Refills(s) 0, Pharmacy: [id number], 158, cm, 12/27/23 10:27:00 EDT, Height/Length Dosing, 112.5, kg, 12/27/23 10:27:00 EDT, Weight Dosing Follow-up No qualifying data available Patient Education Cooking With Less Salt Problem List/Past Medical History Ongoing Abdominal hernia Acute URI Anxiety Asthma BMI 45.0-49.9, adult Chronic obstructive pulmonary disease Excessive dietary caloric intake GERD without esophagitis History of COVID-19 History of tobacco abuse Hypercholesterolemia Insomnia Lesion of bladder Major depressive disorder with single episode, in full remission Mixed incontinence Morbid obesity Multiple pulmonary nodules OWEN (obstructive sleep apnea) Osteoarthritis Primary hypertension Recurrent ventral incisional hernia Urinary incontinence Historical No qualifying data Procedure/Surgical History Cystoscopy (08/27/2023), 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 Medications Adipex-P 37.5 mg oral capsule, 37.5 mg= 1 cap(s), Oral, Daily Breztri Aerosphere inhalation aerosol, 2 puff(s), Inhalation, BID calcium-vitamin D, Daily celecoxib 100 mg Cap, 100 mg= 1 cap(s), Oral, BID, PRN, 1 refills duloxetine 60 mg oral delayed release capsule, 60 mg= 1 cap(s), Oral, Daily, 1 refills glucosamine, Oral, Daily losartan 50 mg Tab, 50 mg= 1 tab(s), Oral, Daily, 1 refills multivitamin, Daily Pantoprazole [address] Tab, 40 mg= 1 tab(s), Oral, BID, 1 refills traZODONE 150 mg Tab, See Instructions Allergies ciprofloxacin (Hives) codeine (Unknown) desonide topical (Unknown) morphine (Unknown) Social History Alcohol Current, Liquor, 1-2 times per month, Household alcohol concerns: No., 05/07/2023 Substance Abuse Past, Marijuana, Stopped age 33 Years., 01/04/2023 Tobacco Former smoker, quit more than 30 days ago, quit 30 years ago Tobacco Use:. Never Smokeless Tobacco Use:. Cigarettes, 2 per day. Started age 11.0 Years. Stopped age 37 Years. Household tobacco concerns: No., 12/27/2023 Family History Alcoholism: Brother. Diabetes mellitus type 2: Mother. Hypertension: Mother. Stroke: Mother. Immunizations Vaccine Date Status Comments influenza virus vaccine, inactivated 07/23/2023 Recorded influenza virus vaccine, inactivated 08/2022 Recorded SARS-CoV-2 (COVID-19) mRNA BNT-162b2 vax 08/22/2022 Recorded zoster vaccine, inactivated 09/07/2021 Recorded SARS-CoV-2 (COVID-19) mRNA BNT-162b2 vax 07/21/2021 Recorded zoster vaccine, inactivated 06/13/2021 Recorded influenza virus vaccine, inactivated 06/13/2021 Recorded SARS-CoV-2 (COVID-19) mRNA BNT-162b2 vax 10/26/2020 Recorded 2022-04-10: [id number] SARS-CoV-2 (COVID-19) mRNA BNT-162b2 vax 10/06/2020 Recorded 2022-04-10: [id number] Normal [facility] Comment on above: Result Comment: Elec tronically Signed By: PERLITA PENDLETON CNP\paresh\Date and Time Signed: 12/27/23 10:54 EDT NM Myocardial Spect Part 2on 12-27-2023 NM Myocardial Spect Part 2 Exam Date/Time: 12/24/2023 10:37 EDT Reason for Exam: R07.9;Chest pain Report PROCEDURE: Treadmill/myocardial perfusion imaging. INDICATIONS: Chest pain. STUDY: After informed consent was obtained the patient was injected with 30 mCi of Cardiolite for rest SPECT imaging on 12/23/2023. She then returned on 12/24/2023 and underwent a treadmill test according to a Danny protocol receiving an additional 29.8 mCi of Cardiolite for stress SPECT imaging. RESTING EKG: The patient has normal sinus rhythm, low voltage in the precordial and limb leads, possible old septal wall myocardial infarction versus lead misplacement. TREADMILL EKG: The patient exercised according to a Danny protocol for 4 minutes and 8 seconds achieving a maximum work load of 5.90 METS. Resting heart rate was 64 beats a minute and brock to maximum of 139 beats a minute, which represents 90% of the maximal age-predicted heart rate. Resting blood pressure was 162/86 and brock to a maximum of 193/94. Test was terminated due to achievement of target heart rate. The patient had no anginal symptoms or arrhythmias noted. During exercise the patient's heart rate increased as expected. The patient had copious motion artifact making EKG interpretation nondiagnostic. No overt ST-segment changes noted, however. No arrhythmias noted. IMAGING: The patient appears to have normal left ventricular size and function with an ejection fraction of 64% with normal left ventricular end-diastolic volume. TID is normal at 0.98. Rest perfusion imaging demonstrates adequate uptake in all regional caabllero. With stress there are no overt areas of ischemia noted, allowing for two-day technique. CONCLUSIONS: 1. Probably normal adequate treadmill/myocardial perfusion imaging. Negative for ischemia by EKG and myocardial perfusion imaging. 2. Normal TID of 0.98. 3. Normal left ventricular size and function with a left ventricular ejection fraction of 64%. 4. Average exercise capacity for age. 5. Decreased sensitivity due to baseline abnormal EKG and two-day technique. 6. Overall this is a low-risk study. cc: Bernardino Licona M.D. FINAL REPORT Signed (Electronic Signature): 12/27/2023 10:12 am Signed by: Christopher BRIGGS MD Transcribed by: ADITYA Technologist: DIPIKA Technical Comments Please See Report for NM Myocardial Spect Rest/Stress 2 Day Technical Comments Stress Dose (mCi Tc99M Cardiolite): 29.8 Normal [facility] Patient Educationon 12-27-19 Patient Education Nephrology Cooking With Less Salt Cooking with less salt is one way to reduce the amount of sodium you get from food. Sodium is one of the elements that make up salt. It is found naturally in foods and is also added to certain foods. Depending on your condition and overall health, your health care provider or dietitian may recommend that you reduce your sodium intake. Most people should have less than 2,300 milligrams (mg) of sodium each day. If you have high blood pressure (hypertension), you may need to limit your sodium to 1,500 mg each day. Follow the tips below to help reduce your sodium intake. What are tips for eating less sodium? Reading food labels ? Check the food label before buying or using packaged ingredients. Always check the label for the serving size and sodium content. ? Look for products with no more than 140 mg of sodium in one serving. ? Check the % Daily Value column to see what percent of the daily recommended amount of sodium is provided in one serving of the product. Foods with 5% or less in this column are considered low in sodium. Foods with 20% or higher are considered high in sodium. ? Do not choose foods with salt as one of the first three ingredients on the ingredients list. If salt is one of the first three ingredients, it usually means the item is high in sodium. Shopping ? Buy sodium-free or low-sodium products. Look for the following words on food labels: ? Low-sodium. ? Sodium-free. ? Reduced-sodium. ? No salt added. ? Unsalted. ? Always check the sodium content even if foods are labeled as low-sodium or no salt added. ? Buy fresh foods. Cooking ? Use herbs, seasonings without salt, and spices as substitutes for salt. ? Use sodium-free baking soda when baking. ? [place], braise, or roast foods to add flavor with less salt. ? Avoid adding salt to pasta, rice, or hot cereals. ? Drain and rinse canned vegetables, beans, and meat before use. ? Avoid adding salt when cooking sweets and desserts. ? Cook with low-sodium ingredients. What foods are high in sodium? Vegetables Regular canned vegetables (not low-sodium or reduced-sodium). Sauerkraut, pickled vegetables, and relishes. Olives. Chinese fries. Onion rings. Regular canned tomato sauce and paste. Regular tomato and vegetable juice. Frozen vegetables in sauces. Grains Instant hot cereals. Bread stuffing, pancake, and biscuit mixes. Croutons. Seasoned rice or pasta mixes. Noodle soup cups. Boxed or frozen macaroni and cheese. Regular salted crackers. Self-rising flour. Rolls. Bagels. Flour tortillas and wraps. Meats and other proteins Meat or fish that is salted, canned, smoked, cured, spiced, or pickled. This includes arnett, ham, sausages, hot dogs, corned beef, chipped beef, meat loaves, salt pork, jerky, pickled lujan, anchovies, regular canned tuna, and sardines. Salted nuts. Dairy Processed cheese and cheese spreads. Cheese curds. Blue cheese. Feta cheese. String cheese. Regular cottage cheese. Buttermilk. Canned milk. The items listed above may not be a complete list of foods high in sodium. Actual amounts of sodium may be different depending on processing. Contact a dietitian for more information. What foods are low in sodium? Fruits Fresh, frozen, or canned fruit with no sauce added. Fruit juice. Vegetables Fresh or frozen vegetables with no sauce added. No salt added canned vegetables. No salt added tomato sauce and paste. Low-sodium or reduced-sodium tomato and vegetable juice. Grains Noodles, pasta, quinoa, rice. Shredded or puffed wheat or puffed rice. Regular or quick oats (not instant). Low-sodium crackers. Low-sodium bread. Whole-grain bread and whole-grain pasta. Unsalted popcorn. Meats and other proteins Fresh or frozen whole meats, poultry (not injected with sodium), and fish with no sauce added. Unsalted nuts. Dried peas, beans, and lentils without added salt. Unsalted canned beans. Eggs. Unsalted nut butters. Low-sodium canned tuna or chicken. Dairy Milk. Soy milk. Yogurt. Low-sodium cheeses, such as Jamaican, Clark Manuel, mozzarella, and ricotta. Sherbet or ice cream (keep to ? cup per serving). Cream cheese. Fats and oils Unsalted butter or margarine. Other foods Homemade pudding. Sodium-free baking soda and baking powder. Herbs and spices. Low-sodium seasoning mixes. Beverages Coffee and tea. Carbonated beverages. The items listed above may not be a complete list of foods low in sodium. Actual amounts of sodium may be different depending on processing. Contact a dietitian for more information. What are some salt alternatives when cooking? The following are herbs, seasonings, and spices that can be used instead of salt to flavor your food. Herbs should be fresh or dried. Do not choose packaged mixes. Next to the name of the herb, spice, or seasoning are some examples of foods you can pair it with. Herbs ? Runnels leaves ? Soups, meat and vegetable dishes, (more content not included)... 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 Respectfully, Dr. Bashir Alonzo MD [facility] [place] [address] [facility] Ambulatory Visit Summaryon 0 11-25-2023 Ambulatory Visit Summary JULIANNE PABON :1955 Visit Date:11/25/2023 Ambulatory Visit Instructions Your Diagnosis Excessive dietary caloric intake Primary hypertension Chronic obstructive pulmonary disease Major depressive disorder with single episode, in full remission Morbid obesity BMI 45.0-49.9, adult Your Care Team Attending Physician - Bashir Alonzo MD Primary Care Physician - Bashir Alonzo MD This Is Your Medications List phentermine (Adipex-P 37.5 mg oral capsule) Contact prescribing physician if questions or concerns budesonide/formotero l/glycopyrrolate (Breztri Aerosphere inhalation aerosol) calcium-vitamin D celecoxib (celecoxib 100 mg Cap) duloxetine (duloxetine 60 mg oral delayed release capsule) glucosamine losartan (losartan 50 mg Tab) multivitamin pantoprazole (Pantoprazole [address] Tab) trazodone (traZODONE 150 mg Tab) Procedures Performed Cystoscopy (08/27/2023), 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 Discharge Vitals Temperature (Temporal Artery) 35.8 ?C Heart Rate (Peripheral) 84 Respiratory Rate 16 Blood Pressure 130/72 Height 158.0 cm Height 62 in Weight 118.5 kg Weight 260.7 lb BMI 47.47 What to do next Scheduled Follow-Up Appointments Saturday 10:45 AM EDT With: Livan YBARRA, Bernardino Garza Where: [facility] [place] Saturday 2:15 PM EDT With: Bashir Alonzo MD Where: [facility] Invalid Interpretation Code [address] [place] [address] [place] [address]- \.br\ Saturday 8:00 AM EDT \.br\ With:\.br\ Where: [facility] Ambulatory Visit Summary JULIANNE PABON :1955 Visit Date:11/25/2023 Ambulatory Visit Instructions Your Diagnosis Excessive dietary caloric intake Primary hypertension Chronic obstructive pulmonary disease Major depressive disorder with single episode, in full remission Morbid obesity BMI 45.0-49.9, adult Your Care Team Attending Physician - Bashir Alonzo MD Primary Care Physician - Bashir Alonzo MD This Is Your Medications List phentermine (Adipex-P 37.5 mg oral capsule) Contact prescribing physician if questions or concerns budesonide/formotero l/glycopyrrolate (Breztri Aerosphere inhalation aerosol) calcium-vitamin D celecoxib (celecoxib 100 mg Cap) duloxetine (duloxetine 60 mg oral delayed release capsule) glucosamine losartan (losartan 50 mg Tab) multivitamin pantoprazole (Pantoprazole [address] Tab) trazodone (traZODONE 150 mg Tab) Procedures Performed Cystoscopy (08/27/2023), 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 Discharge Vitals Temperature (Temporal Artery) 35.8 ?C Heart Rate (Peripheral) 84 Respiratory Rate 16 Blood Pressure 130/72 Height 158.0 cm Height 62 in Weight 118.5 kg Weight 260.7 lb BMI 47.47 What to do next Scheduled Follow-Up Appointments Saturday 10:45 AM EDT With: Lvian YABRRA, Bernardino Garza Where: [facility] [place] Saturday 2:15 PM EDT With: Bashir Alonzo MD Where: [facility] Invalid Interpretation Code [address] [place] [address]- \.br\ Saturday 8:00 AM EDT \.br\ With:\.br\ Where: [facility] Office/Clini c Noteon 11-25-2023 Family Medicine Office/Clinic Note HPI Staff Julianne is a 68 year old female presenting for follow up after seeing 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 she hasn't heard any results but as far as she knows they were okay flu: UTD 07/23/23 questions/concerns: would like to get the adipex started today History of Present Illness - Here for follow up. - Doing well. - NO issue - Reviewed stress test. Review of Systems PHQ Score Initial Depression Screen Score: 0 SCORE Physical Exam Vitals & Measurements T: 35.8 ?C(Temporal Artery) HR: 84(Peripheral) RR: 16 BP: 130/72 SpO2: 94% HT: 62 in HT: 158.0 cm WT: 118.5 kg WT: 260.7 lb BMI: 47.47 General: alert, no acute distress ENMT: oral mucosa moist, Cardiovascular: regular rate and rhythm, normal peripheral perfusion Respiratory: Lungs CTA, respirations non labored Extremities: no deformity, no trauma Neurological: oriented x 4, LOC appropriate for age, CN II-XII intact, motor strength equal & normal bilaterally, speech normal Abdomen: Soft, Nontender, Non-distended, + BS Assessment/Plan 1. Excessive dietary caloric intake (R63.2: Polyphagia) - Will try adipex. - Low risk - Discuss stress test and Echo - Pro's and Con's discussed 2. Primary hypertension (I10: Essential (primary) hypertension) - At goa 3. Chronic obstructive pulmonary disease (J44.9: Chronic obstructive pulmonary disease, unspecified) - Stable 4. Major depressive disorder with single episode, in full remission (F32.5: Major depressive disorder, single episode, in full remission) - Controlled 5. Morbid obesity (E66.01: Morbid (severe) obesity due to excess calories) - Diet and exercise advised 6. BMI 45.0-49.9, adult (Z68.42: Body mass index [BMI] 45.0-49.9, adult) - BMI education given Orders: phentermine, 37.5 mg = 1 cap(s), Oral, Daily, # 30 cap(s), Refills(s) 0, Pharmacy: [facility], 158, cm, 11/25/23 10:35:00 EST, Height/Length Dosing, 118.5, kg, 11/25/23 10:35:00 EST, Weight Dosing Follow-up No qualifying data available Patient Education BMI for Adults Problem List/Past Medical History Ongoing Abdominal hernia Acute URI Anxiety Asthma BMI 45.0-49.9, adult Chronic obstructive pulmonary disease Excessive dietary caloric intake GERD without esophagitis History of COVID-19 History of tobacco abuse Hypercholesterolemia Insomnia Lesion of bladder Major depressive disorder with single episode, in full remission Mixed incontinence Morbid obesity Multiple pulmonary nodules OWEN (obstructive sleep apnea) Osteoarthritis Primary hypertension Recurrent ventral incisional hernia Urinary incontinence Historical No qualifying data Procedure/Surgical History Cystoscopy (08/27/2023), 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 Medications Adipex-P 37.5 mg oral capsule, 37.5 mg= 1 cap(s), Oral, Daily Breztri Aerosphere inhalation aerosol, 2 puff(s), Inhalation, BID calcium-vitamin D, Daily celecoxib 100 mg Cap, 100 mg= 1 cap(s), Oral, BID, PRN, 1 refills duloxetine 60 mg oral delayed release capsule, 60 mg= 1 cap(s), Oral, Daily, 1 refills glucosamine, Oral, Daily losartan 50 mg Tab, 50 mg= 1 tab(s), Oral, Daily, 1 refills multivitamin, Daily Pantoprazole [address] Tab, 40 mg= 1 tab(s), Oral, BID, 1 refills traZODONE 150 mg Tab, See Instructions Allergies ciprofloxacin (Hives) codeine (Unknown) desonide topical (Unknown) morphine (Unknown) Social History Alcohol Current, Liquor, 1-2 times per month, Household alcohol concerns: No., 05/07/2023 Substance Abuse Past, Marijuana, Stopped age 33 Years., 01/04/2023 Tobacco Former smoker, quit more than 30 days ago, quit 30 years ago Tobacco Use:. Never Smokeless Tobacco Use:. Cigarettes, 2 per day. Started age 11.0 Years. Stopped age 37 Years. Household tobacco concerns: No., 11/25/2023 Family History Alcoholism: Brother. Diabetes mellitus type 2: Mother. Hypertension: Mother. Stroke: Mother. Immunizations Vaccine Date Status Comments influenza virus vaccine, inactivated 07/23/2023 Recorded influenza virus vaccine, inactivated 08/2022 Recorded SARS-CoV-2 (COVID-19) mRNA BNT-162b2 vax 08/22/2022 Recorded zoster vaccine, inactivated 09/07/2021 Recorded SARS-CoV-2 (COVID-19) mRNA BNT-162b2 vax 07/21/2021 Recorded zoster vaccine, inactivated 06/13/2021 Recorded influenza virus vaccine, inactivated 06/13/2021 Recorded SARS-CoV-2 (COVID-19) mRNA BNT-162b2 vax 10/26/2020 Recorded 2022-04-10: TPV60 SARS-CoV-2 (COVID-19) mRNA BNT-162b2 vax 10/06/2020 Recorded 2022-04-10: TPV60 Normal [facility] Comment on above: Result Comment: Elec tronically Signed By: Clinton YBARRA, Bashir Blevins.br\Date and Time Signed: 11/25/23 10:52 EST Patient Educationon 11-25-19 24 Patient Education Nutrition BMI for Adults What is BMI? Body mass index (BMI) is a number that is calculated from a person's weight and height. BMI can help estimate how much of a person's weight is composed of fat. BMI does not measure body fat directly. Rather, it is an alternative to procedures that directly measure body fat, which can be difficult and expensive. BMI can help identify people who may be at higher risk for certain medical problems. What are BMI measurements used for? BMI is used as a screening tool to identify possible weight problems. It helps determine whether a person is obese, overweight, a healthy weight, or underweight. BMI is useful for: ? Identifying a weight problem that may be related to a medical condition or may increase the risk for medical problems. ? Promoting changes, such as changes in diet and exercise, to help reach a healthy weight. BMI screening can be repeated to see if these changes are working. How is BMI calculated? BMI involves measuring your weight in relation to your height. Both height and weight are measured, and the BMI is calculated from those numbers. This can be done either in [place] ([place] or metric measurements. Note that charts and online BMI calculators are available to help you find your BMI quickly and easily without having to do these calculations yourself. To calculate your BMI in [place] ([place] measurements: 1. Measure your weight in pounds (lb). 2. Multiply the number of pounds by 703. ? For example, for a person who weighs 180 lb, multiply that number by 703, which equals 126,540. 3. Measure your height in inches. Then multiply that number by itself to get a measurement called inches squared. ? For example, for a person who is 70 inches tall, the inches squared measurement is 70 inches x 70 inches, which equals 4,900 inches squared. 4. Divide the total from step 2 (number of lb x 703) by the total from step 3 (inches squared): 126,540 ? 4,900 = 25.8. This is your BMI. To calculate your BMI in metric measurements: 1. Measure your weight in kilograms (kg). 2. Measure your height in meters (m). Then multiply that number by itself to get a measurement called meters squared. ? For example, for a person who is 1.75 m tall, the meters squared measurement is 1.75 m x 1.75 m, which is equal to 3.1 meters squared. 3. Divide the number of kilograms (your weight) by the meters squared number. In this example: 70 ? 3.1 = 22.6. This is your BMI. What do the results mean? BMI charts are used to identify whether you are underweight, normal weight, overweight, or obese. The following guidelines will be used: ? Underweight: BMI less than 18.5. ? Normal weight: BMI between 18.5 and 24.9. ? Overweight: BMI between 25 and 29.9. ? Obese: BMI of 30 or above. Keep these notes in mind: ? Weight includes both fat and muscle, so someone with a muscular build, such as an athlete, may have a BMI that is higher than 24.9. In cases like these, BMI is not an accurate measure of body fat. ? To determine if excess body fat is the cause of a BMI of 25 or higher, further assessments may need to be done by a health care provider. ? BMI is usually interpreted in the same way for men and women. Where to find more information For more information about BMI, including tools to quickly calculate your BMI, go to these websites: ? Centers for Disease Control and Prevention: www.cdc.gov ? [place] Heart Association: www.heart.org ? National Heart, Lung, and Blood [place]: www.nhlbi.nih.gov Summary ? Body mass index (BMI) is a number that is calculated from a person's weight and height. ? BMI may help estimate how much of a person's weight is composed of fat. BMI can help identify those who may be at higher risk for certain medical problems. ? BMI can be measured using German measurements or metric measurements. ? BMI charts are used to identify whether you are underweight, normal weight, overweight, or obese. This information is not intended to replace advice given to you by your health care provider. Make sure you discuss any questions you have with your health care provider. Document Revised: 06/01/2020 Document Reviewed: 04/08/2020 [employer] Patient Education ? 2022 [employer] Normal [facility] Stress EKG Tracingson 2023 Stress EKG Tracings [id number] #1.00TIFF [facility] Consent for Treatmenton 10-25 Consent for Treatment [id number] #1.00TIFF Normal [facility] ECG 12-Leadon 10-28-2023 ECG 12-Lead [id number] 8#1.00TIFF Normal [facility] Heart and Vascular Office/Cl inic Noteon 10-28-2023 Heart and Vascular Office/Clinic Note Chief Complaint here to establish care and needs clearance to start adipex History of Present Illness Julianne Pabon is a 67-year-old female who presents today for a new patient evaluation. The patient has expressed a desire to initiate therapy with Adipex. She wants to lose weight. However, Dr. Alonzo is perturbed by the necessity of a fulling mill operator's consultation prior to commencing this medication. She denies any cardiac problems in the past, any chest pain, or being diabetic. She reports difficulty breathing due to asthma. The patient demonstrates mobility by navigating on a treadmill and ascending and descending stairs. She denies any swelling in her ankles. She has a history of hypertension. The patient's mother has a history of heart failure. Review of Systems Constitutional: no fever, no sweats, no weakness Skin: no rash, no lesions, no bruising/petechiae ENMT: no sore throat, no congestion, no hoarseness Respiratory: no shortness of breath, no cough, no orthopnea, no wheezing Cardiovascular: no chest pain, no palpitations, no edema Gastrointestinal: no nausea, no vomiting, no diarrhea, no GI bleeding Genitourinary: no anuria/oliguria no hematuria Musculoskeletal: no back pain, no trauma Neurologic: no headache, no dizziness, no numbness, no weakness Psychiatric: no sleeping problems, no irritability, no anxiety/depression. Heme/Lymph: no bleeding tendency, no bruising tendency Allergy/Immunologic: no recurrent infections, no impaired immunity Additional ROS info: Except as noted in the above Review of Systems and in the History of Present Illness all other systems have been reviewed and are negative or noncontributory Physical Exam Vitals & Measurements HR: 73(Peripheral) BP: 132/82 SpO2: 95% HT: 62 in HT: 158 cm WT: 119.6 kg WT: 263.12 lb BMI: 47.91 General: alert, no acute distress Skin: warm, dry intact Head: atraumatic, normocephalic Neck: trachea midline, no JVD, no bruit Eye: normal conjunctiva, sclera clear ENMT: oral mucosa moist Cardiovascular: regular rate and rhythm, no murmur, normal peripheral perfusion Respiratory: lungs CTA, respirations non labored Chest wall: no deformity. Gastrointestinal: soft, non-distended, no tenderness, no guarding. Back: no tenderness, normal ROM, normal alignment. Extremities: no edema, no deformity, no trauma Neurological: oriented x 4, LOC appropriate for age, sensation equal & normal bilaterally, speech normal Psychiatric: cooperative, affect appropriate for age, normal judgement, normal psychiatric thoughts. Assessment/Plan A 67-year-old female with a history of obesity and hypertension. 1. HTN (hypertension) (I10: Essential (primary) hypertension) Due to her hypertension and nonspecific T wave abnormality, we will get her a transthoracic echo and a stress test. Blood pressure is stable in office. Continue losartan 50 mg daily. Weight loss would be beneficial for her cardiac co-morbids. Ordered: ECG Stress Exercise Echo Transthoracic Complete 2. Abnormal ECG (R94.31: Abnormal electrocardiogram [ECG] [EKG]) The patient is wanting to get on Adipex for weight loss. EKG is sinus rhythm with nonspecific T wave abnormality. Check echocardiogram to evaluate cardiac structure and function. Obtain stress testing to rule out ischemia. Ordered: ECG Stress Exercise Echo Transthoracic Complete 3. Obesity (E66.9: Obesity, unspecified) The standard range for ages 18 and older is >=18.5 and < 25 kg/m2. Your BMI today was above this range, this falls in the overweight to obese category and there are medical benefits to weight loss. We can offer counselling, referral, and/or medical support in addressing this problem. Your BMI and weight management will be followed at subsequent visits. If her echo and stress look good, she can start Adipex without concern. ATTESTATION: Portions of this record may have been created with voice recognition artificial intelligence software, specifically [employer], [employer] and or [employer]. Substitutions may have occurred due to the inherent limitations of voice recognition and artificial intelligence software. Documentation services were performed after patient or guardian consented to allow [employer] to record this visit. JULIA forensic identification specialist and provider reviewed before signing. JULIA: Stephanie Bae Follow-up No qualifying data available Problem List/Past Medical History Ongoing Abdominal hernia Acute URI Anxiety Asthma BMI 45.0-49.9, adult Chronic obstructive pulmonary disease GERD without esophagitis History of COVID-19 History of tobacco abuse Hypercholesterolemia Insomnia Lesion of bladder Major depressive disorder with single episode, in full remission Mixed incontinence Morbid obesity Multiple pulmonary nodules OWEN (obstructive sleep apnea) Osteoarthritis Primary hypertension Recurrent ventral incisional hernia U (more content not included)... Normal [facility] Comment on above: Result Comment: Elec tronically Signed By: Livan YBARRA, Bernardino Garza\.br\Date and Time Signed: 10/28/23 10:06 EST\.br\Electronically Co-Signed By: Stephanie Bae\.br\Date and Time Co-Signed: 10/25/23 11:47 EST Physician Orderon 10-28-2023 Physician Order [id number] 5#1.00TIFF [facility] Insurance Correspondenceon 0 10-25-2023 Insurance Correspondence [id number] #1.00TIFF [facility] Screenson 10-23-2023 Screens [id number] 2#1.00TIFF [facility] Ambulatory Visit Summaryon 0 10-22-2023 Ambulatory Visit Summary JULIANNE PABON :1955 Visit Date:10/22/2023 Ambulatory Visit Instructions Your Diagnosis Mixed incontinence Lesion of bladder Your Care Team Attending Physician - ILIANA PACHECO PA-C Primary Care Physician - Clinton YBARRA, Bashir Law. 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 Discharge Vitals Heart Rate (Peripheral) 150 Heart Rate (Apical) 85 Respiratory Rate 16 Blood Pressure 165/93 Height 62 in Height 158 cm Weight 259.6 lb Weight 118 kg BMI 47.27 What to do next Scheduled Follow-Up Appointments Saturday 10:30 AM EST With: Livan YBARRA, Bernardino Garza Where: [facility] Saturday 10:30 AM EST With: Clinton YBARRA, Bashir Warner Where: [facility] Invalid Interpretation Code [address] [place] [address] [place] [address]- \.br\ Saturday 8:00 AM EDT \.br\ With:\.br\ Where: [facility] Patient Educationon 10-22-19 24 Patient Education Obstetrics and Gynecology Kegel Exercises Kegel exercises can help strengthen your pelvic floor muscles. The pelvic floor is a group of muscles that support your rectum, small intestine, and bladder. In females, pelvic floor muscles also help support the uterus. These muscles help you control the flow of urine and stool (feces). Kegel exercises are painless and simple. They do not require any equipment. Your provider may suggest Kegel exercises to: ? Improve bladder and bowel control. ? Improve sexual response. ? Improve weak pelvic floor muscles after surgery to remove the uterus (hysterectomy) or after , in females. ? Improve weak pelvic floor muscles after prostate gland removal or surgery, in males. Kegel exercises involve squeezing your pelvic floor muscles. These are the same muscles you squeeze when you try to stop the flow of urine or keep from passing gas. The exercises can be done while sitting, standing, or lying down, but it is best to vary your position. Ask your health care provider which exercises are safe for you. Do exercises exactly as told by your health care provider and adjust them as directed. Do not begin these exercises until told by your health care provider. Exercises How to do Kegel exercises: 1. Squeeze your pelvic floor muscles tight. You should feel a tight lift in your rectal area. If you are a female, you should also feel a tightness in your vaginal area. Keep your stomach, buttocks, and legs relaxed. 2. Hold the muscles tight for up to 10 seconds. 3. Breathe normally. 4. Relax your muscles for up to 10 seconds. 5. Repeat as told by your health care provider. Repeat this exercise daily as told by your health care provider. Continue to do this exercise for at least 4?6 weeks, or for as long as told by your health care provider. You may be referred to a physical therapist who can help you learn more about how to do Kegel exercises. Depending on your condition, your health care provider may recommend: ? Varying how long you squeeze your muscles. ? Doing several sets of exercises every day. ? Doing exercises for several weeks. ? Making Kegel exercises a part of your regular exercise routine. This information is not intended to replace advice given to you by your health care provider. Make sure you discuss any questions you have with your health care provider. Document Revised: 01/18/2022 Document Reviewed: 01/18/2022 [employer] Patient Education ? 2022 [employer]. Jerrod Cordero [facility] Urology Office/Clinic Noteon 10-22-2023 Urology Office/Clinic Note Chief Complaint S/P Botox HPI Staff 67 year old female here for F/U to Botox with PVR. S/P Botox 100 units done 10/08/23, Cysto done 08/27/23, 07/02/23 and URO's done 05/30/23. Previous DX: mixed incontinence. Does see a little improvement. Still wearing a brief at night. Wakes up from urge to void, then incontinence before she can physically get out of bed. Minimal leaking during the day, only when she coughs. Does have urgency. Has to find a restroom right away. Denies any concerns at this time. PVR 28ml History of Present Illness staff HPI reviewed and agree. Review of Systems PHQ Score Initial Depression Screen Score: 0 SCORE no fever, chills, malaise, myalgia. no rash/lesions. no chest pain, palpitations, or SOB. no abdominal pain, nausea, vomiting. no unilateral calf swelling, redness, pain Physical Exam Vitals & Measurements HR: 150(Peripheral) HR: 85(Apical) RR: 16 BP: 165/93 HT: 62 in HT: 158 cm WT: 118 kg WT: 259.6 lb BMI: 47.27 General: nontoxic, NAD Mouth: moist mucosa Lungs: normal respiratory effort Cardio: regular rate, good distal perfusion Abdomen: nondistended, no suprapubic distention or tenderness, no CVA tenderness Neurologic: Grossly normal Skin: No rashes or suspicious lesions Assessment/Plan Dr. Ray pt 1. Mixed incontinence (N39.46: Mixed incontinence) Failed Oxybutynin ER 10mg and Trospium. Had no sx improvement and SE of dry mouth and constipation. 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 Stimulation offered by urology in [place] (pt not clear whether PTNS vs SNM), but does not want to continue to drive to [place] to see this provider, wanted someone closer to home. Pt also did PFPT in [place]. S/p Cysto/Botox 100u 08/27/23 - Had mild improvement of urgency but was still severe especially at nighttime. S/p Botox 100u 10/08/23. PVR today 28mL (34mL at prior OV). UA today negative for blood and infection. BBS 20 (20). States she is doing well PO Botox. Denies any complications since. Wakes up from urge to void, then incontinence before she can physically get out of bed. Only leaks when she coughs during the day. However continues to have urgency. Doesn't feel like there is much noticeable improvement yet. Discussed urinary sxs will continue to improve 6-12 wks after Botox. Advised pt if sxs are still bothersome in a few months, will consider adding a bladder medication in combo w Botox. -f/u 3 mos once Botox full effect. 2. Lesion of bladder (N32.9: Bladder disorder, unspecified) S/p Cysto/UD 07/02/23 - Diffuse red flat lesions throughout majority of the mucosa. No evidence of any papillary tumors or stones. No cystitis cystica lesions. Cytology - rare atypical urothelial cells with degeneration. -Given Macrobid 100 mg x2mos for red mucosal lesions. Repeat cystoscopy was recommended. S/p Cysto 08/27/23 - lesions resolved. Follow-up With When Contact Information ELIZABETH MURRIETA, ILIANA Law, URL [address] [place] [address] [phone] Additional Instructions: 3 mos Patient Education Kegel Exercises Documentation recorded by the jayme Barcenas accurately reflects the services(s) I performed and decisions made by me. Authenticated by Iliana Pacheco PA-C on 10/22/2023 10:39:48. I, Renuka Barcenas, personally scribed for Iliana Pacheco PA-C on 10/22/2023 10:35:33. . 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 Medications Breztri Aerosphere inhalation aerosol, 2 puff(s), Inhalation, BID calcium-vitamin D, Daily celecoxib 100 mg Cap, 100 mg= 1 cap(s), Oral, BID, PRN, 1 refills duloxetine 60 mg oral delayed release capsule, 60 mg= 1 cap(s), Oral, Daily, 1 refills glucosamine, Oral, Daily losartan 50 mg Tab, 50 mg= 1 tab(s), Oral, Daily, 1 refills multivitamin, Daily Pantoprazole [address] Tab, 40 mg= 1 tab(s), Oral, BID, 1 refills traZODONE 150 mg Tab, 150 mg= 1 tab(s), Oral, Once a day (at bedtime), 1 refills Allergies ciprofloxacin (Hives) codeine (Unknown) desonide (more content not included)... Normal [facility] Comment on above: Result Comment: Elec tronically Signed By: ELIZABETH PA-C, ILIANA E\.br\Date and Time Signed: 10/22/23 10:41 EST\.br\Electronically Co-Signed By: Renuka Barcenas\.br\Date and Time Co-Signed: 10/22/23 10:35 EST Consent for Procedure/Surger yon 10-08-2023 Consent for Procedure/Surgery [id number] 8#1.00TIFF Normal [facility] Consent for Treatmenton 09-23 Consent for Treatment [id number] #1.00TIFF Normal [facility] IntraOperative Documentson 0 10-08-2023 IntraOperative Documents [id number] 8#1.00TIFF Normal [facility] Main OR Intraoperative Recor don 10-08-2023 Main OR Intraoperative Record IntraOp Document Type FTURO Summary Primary Physician: Feliz RAY MD Finalized Date/Time: 10/08/23 10:03:32 Pt. Name: JULIANNE PABON/Sex: 1955 Female Med Rec #: [id number] Physician: Feliz RAY MD Financial #: [id number] Pt. Type: O Room/Bed: / Admit/Disch: 10/08/23 07:52:30 - Institution: Case Times FTURO Entry 1 Patient Times In Room 10/08/23 09:45:00 Out Room 10/08/23 10:08:00 Procedure Times Start 10/08/23 09:55:00 Stop 10/08/23 10:03:00 Anesthesia Times Last Modified By: Goldy STEPHENS, Sosa ALAS 10/08/23 10:03:20 Case Attendance FTURO Entry 1 Entry 2 Entry 3 Case Attendee FLOR YBARRA, Feliz Winslow RN, LILIAOR, Yuli Rubio Role Performed Surgeon - Primary Director Home - Primary Scrub - Primary Time In 10/08/23 09:45:00 10/08/23 09:45:00 10/08/23 09:45:00 Time Out 10/08/23 10:08:00 10/08/23 10:08:00 10/08/23 10:08:00 Procedure CYSTOSCOPY LOCAL BOTOX CYSTOSCOPY LOCAL BOTOX CYSTOSCOPY LOCAL BOTOX INJECTION(.) INJECTION(.) INJECTION(.) Comments rolando zelaya cst orienting in room Last Modified By: Goldy STEPHENS, CNOR, Goldy STEPHENS, LILIAOR, Goldy STEPHENS, LILIAOR, Sosa 10/08/23 Sosa 10/08/23 Sosa 10/08/23 10:03:21 10:03:21 10:03:21 Surgical Procedures FTURO Entry 1 Procedure Description Procedure CYSTOSCOPY LOCAL BOTOX Modifiers . INJECTION Surgeon Description CYSTOSCOPY WITH 100 UNITS BOTOX Primary Procedure Yes Primary Surgeon Feliz RAY MD Start 10/08/23 09:55:00 Stop 10/08/23 10:03:00 Anesthesia Type Local Surgical Service Urology Wound Class 2 - Clean-Contaminated Last Modified By: Goldy STEPHENS, LILIAOR, Sosa 10/08/23 10:03:23 General Comments: botox 100 units lot [id number] outdate 09/16 General Case Data FTURO Pre-Care Text: Classifies surgical wound, implements aseptic technique, initiates traffic control Entry 1 Case Information OR URO 1 FT Case Level None Wound Class 2 - Clean-Contaminated Specialty Urology Preop Diagnosis URGE INCONTINENCE Postop Same As Preop Yes Postop Diagnosis URGE INCONTINENCE Outcomes Met? Yes Last Modified By: Goldy STEPHENS, LILIAOR, Sosa 10/08/23 08:10:31 Post-Care Text: The patient is free from signs and symptoms of infection EU IntraOp - FTURO Pre-Care Text: Implements protective measures prior to operative or invasive procedure, confirms identity before the operative or invasive procedure, verifies operative procedure, surgical site, and laterality Entry 1 EU Perioperative Protocols Procedure(s) CYSTOSCOPY LOCAL BOTOX Patient Identity Birthday, ID Band INJECTION(.) Verified (select at Check, Patient least 2): Participation Consents / H and P HandP, Surgery/Procedure Operative Site N/A Verified Consent Marking Verified Surgical Site Yes Laterality Verified n/a Verified Procedure Verified Yes Correct Patient Yes Position Verified Availability Equipment, Medication Time Out BISHOP Winslow RN, Verified (If Participants FLOR Swan MD, Applicable) Ramiro Pinto Jessica D Time Out Complete 10/08/23 09:43:00 Allergies Reviewed? Yes Allergies Reviewed Self/Patient With Body Position Low Lithotomy Prep Area perineal area Prep Agents Betadine Solution Skin. Condition Unable to Visualize Additional None Specimens Collected Vitals - EU Blood Pressure 147/86 Pulse 83 bpm Respirations 16 br/min SPO2 EBL 0 IandO - EU Total Intake 0 mL Total Output 0 mL Outcomes Met? Yes Last Modified By: BISHOP Winslow RN, Ruthann 10/08/23 10:00:26 Post-Care Text: The patient is free from signs and symptoms of injury caused by extraneous objects Sign Out FTURO Entry 1 Before Patient Leaves OR Nurse verbally Yes Nurse verbally n/a confirms with the confirms with the team the name of team that the procedure(s) instrument, sponge, recorded and needle counts are correct (or N/A) Nurse verbally n/a Nurse verbally n/a confirms with the confirms with the team how the team whether there specimen is labeled are any equipment (including patient problems to be name), if applicable addressed Sign Out Complete 10/08/23 10:06:00 Last Modified By: BISHOP Winslow RN, Ruthann 10/08/23 10:03:28 Case Comments Finalized By: BISHOP Winslow RN, Ruthann Document Signatures Signed By: BISHOP Winslow RN, Ruthann 10/08/23 10:03 [facility] Main OR Preoperative Recordo n 10-08-2023 Main OR Preoperative Record Holding Area Document Type FTURO Summary Primary Physician: Feliz RAY MD Finalized Date/Time: 10/08/23 09:51:04 Pt. Name: JULIANNE PABON/Sex: 1955 Female Med Rec #: [id number] Physician: Feliz RAY MD Financial #: [id number] Pt. Type: O Room/Bed: / Admit/Disch: 10/08/23 07:52:30 - Institution: Case Times Holding FTURO Pre-Care Text: Verifies consent for planned procedure, identifies individual values and wishes concerning care, includes family members in perioperative teaching Secures patient's records' belongings, and valuables, maintains patient's dignity and privacy, and maintains patient confidentiality Entry 1 In Holding 10/08/23 08:22:00 Outcomes Met? Yes Last Modified By: Dee Toussaint RN 10/08/23 08:22:29 Post-Care Text: The patient participates in decisions affecting his or her perioperative plan of care The patient's right to privacy is maintained Surgery Checklist FTURO Entry 1 Patient Birthday, ID Band Procedure History and Physical, Identification: Check, Patient Verification: Surgical Consent, With Participation Patient NPO after Midnight: n/a Personal Items: Cataract Lens Implant, Dentures, Jewelry Personal Items WATCH X 1; UPPER AND Limitations: UP AD NALLELY Comment: LOWER DENTURES; BILATERAL CATARACT LENS IMPLANTS Complaints of Pain: No Skin Integrity Dry, Warm Vitals - EU Blood Pressure 147/86 Pulse 83 bpm Respirations 16 br/min SPO2 94 % Additional Other (See Comment) Specimens Comment URINE DIPSTICK Specimens Collected RN Reviewed Yes Last Modified By: Dee Toussaint RN 10/08/23 08:25:03 Finalized By: BISHOP Winslow RN, Ruthann Document Signatures Signed By: Dee Toussaint RN 10/08/23 08:25 Dee Toussaint RN 10/08/23 08:41 BISHOP Winslow RN, Ruthann 10/08/23 09:51 Normal [facility] Operative Reporton Operative Report Patient: JULIANNE PABNO Age: 67 years Sex: Female : 1955 Associated Diagnoses: None Author: Feliz RAY MD Procedure Operative Information Details: Date/ Time: 10/08/2023 10:05:00. Pre-Op Dx: Incont/Urge - N39.41. Post-Op Dx: Same. Anesthesia Type: Local. Procedure: Local Cystoscopy with botox injection. Complications: None. Risks/Benefits/Infor med Consent: Surgical risks, benefits, details of the procedure have been explained to the patient, Full informed consent has been obtained. Intraoperative Information Prepped: Patient is brought back to the endoscopy suite, Male Prep, Female Prep (Patient is placed in modified dorso/lithotomy position, 5 cc 2% Xylocaine Jelly is placed per Urethra, Straight cath inserted to obtain urine specimen, 60 cc 2% Xylocaine liquid inserted into bladder, 5 additional cc 2% Xylocaine Jelly is placed per Urethra, Patient in sitting position for 20 min dwell), Urine Specimen Results Negative for infection, Patient prepped in the usual fashion with Betadine solution, After waiting several minutes the Cystoscope is introduced. Procedure: The trigone was identified and evaluated, 20 template injection sites were identified, The bladder was instilled with enough saline to achieve adequate visualization for the injections, The needle was inserted approximately 2 mm into the detrusor spaced approximately 1 cm apart, A total of 20 injections with a 0.5 ml volume was delivered at each site for a total of 100 units of Botox. The Urethra is: Normal. The Bladder is: Normal. The ureteral orifices: Show efflux of clear urine. Devices Implanted: None. Removal: Cystoscope is removed, The patient tolerated it well. Postoperative Information Discharge: Patient is discharged home with antibiotic coverage, Follow up arranged. [facility] Comment on above: Result Comment: Elec tronically Signed By: FLOR YBARRA, Feliz Arellano.br\Date and Time Signed: 10/08/23 10:05 EST Insurance Correspondenceon 0 10-03-2023 Insurance Correspondence [id number] 63#1.00TIFF [facility] Insurance Correspondenceon 0 10-02-2023 Insurance Correspondence [id number] 7#1.00TIFF [facility] Family Medicine Office/Clini c Noteon 09-10-2023 Family Medicine Office/Clinic Note HPI Staff Julianne is a 67 year old female presenting for 6 month bp check Patient is here for follow up on hypertension. How often are you checking your blood pressure? Doesnt check BP at home What are your average readings? N/A, Not checking at home Yearly BMP: 05/07/23 _ flu: UTD Acute: says every time she eats something she breaks out in a sweat, doesn't matter what food it is even happens with coffee questions/concerns: History of Present Illness - Here for follow up. - See staff HPI. Review of Systems PHQ Score Initial Depression Screen Score: 0 SCORE Physical Exam Vitals & Measurements T: 36.0 ?C(Temporal Artery) HR: 72(Peripheral) RR: 18 BP: 120/76 SpO2: 94% HT: 63 in HT: 158 cm WT: 120.2 kg WT: 264.44 lb BMI: 48.15 General: alert, no acute distress ENMT: oral mucosa moist, Cardiovascular: regular rate and rhythm, normal peripheral perfusion Respiratory: Lungs CTA, respirations non labored, Wet Cough Extremities: no deformity, no trauma Neurological: oriented x 4, LOC appropriate for age, CN II-XII intact, motor strength equal & normal bilaterally, speech normal Abdomen: Soft, Nontender, Non-distended, + BS Assessment/Plan 1. Primary hypertension (I10: Essential (primary) hypertension) - at goal - Continue on meds as before. - Will refill for 6 months Ordered: Body Mass Index (BMI) documented 3008F Current tobacco non-user 1036F Depression Screening Negative 3352F Influenza immunization administered or previously received 4274F Most recent diastolic blood pressure <80 mm Hg 3078F Patient screen for fall risk: no falls in last year or 1 fall with no injury in last year 1101F Systolic BP <130 mm Hg (Most Recent) 3074F 2. OWEN (obstructive sleep apnea) (G47.33: Obstructive sleep apnea (adult) (pediatric)) - Continue on CPAP Ordered: Body Mass Index (BMI) documented 3008F Current tobacco non-user 1036F Depression Screening Negative 3352F Influenza immunization administered or previously received 4274F Most recent diastolic blood pressure <80 mm Hg 3078F Patient screen for fall risk: no falls in last year or 1 fall with no injury in last year 1101F Systolic BP <130 mm Hg (Most Recent) 3074F 3. Morbid obesity (E66.01: Morbid (severe) obesity due to excess calories) - Diet and exercise advised - Adipex clearance with cardiology - Once cleared will start adiped Ordered: Body Mass Index (BMI) documented 3008F Current tobacco non-user 1036F Depression Screening Negative 3352F Influenza immunization administered or previously received 4274F Most recent diastolic blood pressure <80 mm Hg 3078F Patient screen for fall risk: no falls in last year or 1 fall with no injury in last year 1101F Systolic BP <130 mm Hg (Most Recent) 3074F 4. Anxiety (F41.9: Anxiety disorder, unspecified) - Stable - Continue on meds as before Ordered: Body Mass Index (BMI) documented 3008F Current tobacco non-user 1036F Depression Screening Negative 3352F Influenza immunization administered or previously received 4274F Most recent diastolic blood pressure <80 mm Hg 3078F Patient screen for fall risk: no falls in last year or 1 fall with no injury in last year 1101F Systolic BP <130 mm Hg (Most Recent) 3074F 5. GERD without esophagitis (K21.9: Gastro-esophageal reflux disease without esophagitis) - Concerned for not controlled GERD symptoms - Will increase PPI BID - If the sweating and getting flush does not improve, EGD Ordered: Body Mass Index (BMI) documented 3008F Current tobacco non-user 1036F Depression Screening Negative 3352F Influenza immunization administered or previously received 4274F Most recent diastolic blood pressure <80 mm Hg 3078F Patient screen for fall risk: no falls in last year or 1 fall with no injury in last year 1101F Systolic BP <130 mm Hg (Most Recent) 3074F 6. BMI 45.0-49.9, adult (Z68.42: Body mass index [BMI] 45.0-49.9, adult) - BMI education given Ordered: Body Mass Index (BMI) documented 3008F Current tobacco non-user 1036F Depression Screening Negative 3352F Influenza immunization administered or previously received 4274F Most recent diastolic blood pressure <80 mm Hg 3078F Patient screen for fall risk: no falls in last year or 1 fall with no injury in last year 1101F Systolic BP <130 mm Hg (Most Recent) 3074F 7. Acute URI (J06.9: Acute upper respiratory infection, unspecified) - Will do medrol and zpack as pocket script - Follow up precautions discussed. 8. Asthma (J45.909: Unspecified asthma, uncomplicated) - Continue meds as before. Orders: celecoxib, 100 mg = 1 cap(s), Oral, BID, PRN for arthritis, # 180 cap(s), Refills(s) 1, Pharmacy: [facility]/pharmacy #[id number], 158, cm, 09/10/23 13:07:00 EST, Height/Length Dosing, 120.2, kg, 09/10/23 13:07:00 EST, Weight Dosing duloxetine, 60 mg = 1 cap(s), Oral, Daily, # 90 cap(s), Refills(s) 1, Pharmacy: [facility]/pharmacy #[id number], 158, cm, 09/10/23 13:07:00 Abimbola ARITA (more content not included)... Normal [facility] Comment on above: Result Comment: Elec tronically Signed By: Clinton YBARRA, Bashir Blevins.br\Date and Time Signed: 09/10/23 13:52 EST Patient Educationon 09-10-20 Patient Education Nutrition BMI for Adults What is BMI? Body mass index (BMI) is a number that is calculated from a person's weight and height. BMI can help estimate how much of a person's weight is composed of fat. BMI does not measure body fat directly. Rather, it is an alternative to procedures that directly measure body fat, which can be difficult and expensive. BMI can help identify people who may be at higher risk for certain medical problems. What are BMI measurements used for? BMI is used as a screening tool to identify possible weight problems. It helps determine whether a person is obese, overweight, a healthy weight, or underweight. BMI is useful for: ? Identifying a weight problem that may be related to a medical condition or may increase the risk for medical problems. ? Promoting changes, such as changes in diet and exercise, to help reach a healthy weight. BMI screening can be repeated to see if these changes are working. How is BMI calculated? BMI involves measuring your weight in relation to your height. Both height and weight are measured, and the BMI is calculated from those numbers. This can be done either in [place] ([place] or metric measurements. Note that charts and online BMI calculators are available to help you find your BMI quickly and easily without having to do these calculations yourself. To calculate your BMI in [place] ([place] measurements: 1. Measure your weight in pounds (lb). 2. Multiply the number of pounds by 703. ? For example, for a person who weighs 180 lb, multiply that number by 703, which equals 126,540. 3. Measure your height in inches. Then multiply that number by itself to get a measurement called inches squared. ? For example, for a person who is 70 inches tall, the inches squared measurement is 70 inches x 70 inches, which equals 4,900 inches squared. 4. Divide the total from step 2 (number of lb x 703) by the total from step 3 (inches squared): 126,540 ? 4,900 = 25.8. This is your BMI. To calculate your BMI in metric measurements: 1. Measure your weight in kilograms (kg). 2. Measure your height in meters (m). Then multiply that number by itself to get a measurement called meters squared. ? For example, for a person who is 1.75 m tall, the meters squared measurement is 1.75 m x 1.75 m, which is equal to 3.1 meters squared. 3. Divide the number of kilograms (your weight) by the meters squared number. In this example: 70 ? 3.1 = 22.6. This is your BMI. What do the results mean? BMI charts are used to identify whether you are underweight, normal weight, overweight, or obese. The following guidelines will be used: ? Underweight: BMI less than 18.5. ? Normal weight: BMI between 18.5 and 24.9. ? Overweight: BMI between 25 and 29.9. ? Obese: BMI of 30 or above. Keep these notes in mind: ? Weight includes both fat and muscle, so someone with a muscular build, such as an athlete, may have a BMI that is higher than 24.9. In cases like these, BMI is not an accurate measure of body fat. ? To determine if excess body fat is the cause of a BMI of 25 or higher, further assessments may need to be done by a health care provider. ? BMI is usually interpreted in the same way for men and women. Where to find more information For more information about BMI, including tools to quickly calculate your BMI, go to these websites: ? Centers for Disease Control and Prevention: www.cdc.gov ? [place] Heart Association: www.heart.org ? National Heart, Lung, and Blood [place]: www.nhlbi.nih.gov Summary ? Body mass index (BMI) is a number that is calculated from a person's weight and height. ? BMI may help estimate how much of a person's weight is composed of fat. BMI can help identify those who may be at higher risk for certain medical problems. ? BMI can be measured using German measurements or metric measurements. ? BMI charts are used to identify whether you are underweight, normal weight, overweight, or obese. This information is not intended to replace advice given to you by your health care provider. Make sure you discuss any questions you have with your health care provider. Document Revised: 06/01/2020 Document Reviewed: 04/08/2020 Else[employer]ContactForm Patient Education ? 2022 [employer] Normal [facility] Consent for Procedure/Surger yon 08-27-2023 Consent for Procedure/Surgery [id number] #1.00TIFF Normal [facility] Consent for Treatmenton -0 Consent for Treatment [id number] #1.00TIFF [facility] IntraOperative Documentson 1 10-28-2022 IntraOperative Documents [id number] #1.00TIFF [facility] Main OR Intraoperative Recor don 08-27-2023 Main OR Intraoperative Record IntraOp Document Type FTURO Summary Primary Physician: Feliz RAY MD Finalized Date/Time: 08/27/23 09:42:52 Pt. Name: JULIANNE PABON/Sex: 1955 Female Med Rec #: [id number] Physician: Feliz RAY MD Financial #: [id number] Pt. Type: O Room/Bed: / Admit/Disch: 08/27/23 08:44:17 - Institution: Case Times FTURO Entry 1 Patient Times In Room 08/27/23 09:31:00 Out Room 08/27/23 09:50:00 Procedure Times Start 08/27/23 09:38:00 Stop 08/27/23 09:45:00 Anesthesia Times Last Modified By: Goldy STEPHENS, Sosa ALAS 08/27/23 09:42:13 Case Attendance FTURO Entry 1 Entry 2 Entry 3 Case Attendee FLOR YBARRA, Feliz Winslow RN, CNOR, Rashida VO, Dee Swan Role Performed Surgeon - Primary Director Home - Primary Scrub - Primary Time In 08/27/23 09:31:00 08/27/23 09:31:00 08/27/23 09:31:00 Time Out 08/27/23 09:50:00 08/27/23 09:50:00 08/27/23 09:50:00 Procedure CYSTOSCOPY LOCAL(.) CYSTOSCOPY LOCAL(.) CYSTOSCOPY LOCAL(.) Comments Last Modified By: Goldy STEPHENS, CNOR, Goldy STEPHENS, LILIAOR, Goldy STEPHENS, LILIAOR, Sosa 08/27/23 Sosa 08/27/23 Sosa 08/27/23 09:42:14 09:42:14 09:42:14 Surgical Procedures FTURO Entry 1 Procedure Description Procedure CYSTOSCOPY LOCAL Modifiers . Surgeon Description cysto Primary Procedure Yes Primary Surgeon Feliz RAY MD Start 08/27/23 09:38:00 Stop 08/27/23 09:45:00 Anesthesia Type Local Surgical Service Urology Wound Class 2 - Clean-Contaminated Last Modified By: Goldy STEPHENS, LILIAOR, Sosa 08/27/23 09:42:16 General Case Data FTURO Pre-Care Text: Classifies surgical wound, implements aseptic technique, initiates traffic control Entry 1 Case Information OR URO 1 FT Case Level None Wound Class 2 - Clean-Contaminated Specialty Urology Preop Diagnosis BLADDER LESION, MIXED Postop Same As Preop No URINARY INCONTINENCE Postop Diagnosis BLADDER LESION Outcomes Met? Yes improvement Last Modified By: Goldy STEPHENS, LILIAOR, Sosa 08/27/23 09:41:54 Post-Care Text: The patient is free from signs and symptoms of infection EU IntraOp - FTURO Pre-Care Text: Implements protective measures prior to operative or invasive procedure, confirms identity before the operative or invasive procedure, verifies operative procedure, surgical site, and laterality Entry 1 EU Perioperative Protocols Procedure(s) CYSTOSCOPY LOCAL(.) Patient Identity Birthday, ID Band Verified (select at Check, Patient least 2): Participation Consents / H and P HandP, Surgery/Procedure Operative Site N/A Verified Consent Marking Verified Surgical Site Yes Laterality Verified n/a Verified Procedure Verified Yes Correct Patient Yes Position Verified Availability Equipment, Medication Time Out Feliz RAY MD, Verified (If Participants Goldy STEPHENS, CNOR, Applicable) Rashida Swan CST, Kimberly A Time Out Complete 08/27/23 09:33:00 Allergies Reviewed? Yes Allergies Reviewed Self/Patient With Body Position Frog Legged Prep Area oerineal area Prep Agents Betadine Solution Skin. Condition Unable to Visualize Additional None Specimens Collected Vitals - EU Blood Pressure Pulse Respirations SPO2 EBL 0 IandO - EU Total Intake 0 mL Total Output 0 mL Outcomes Met? Yes Last Modified By: BISHOP Winslow RN, Ruthann 08/27/23 09:42:50 Post-Care Text: The patient is free from signs and symptoms of injury caused by extraneous objects Sign Out FTURO Entry 1 Before Patient Leaves OR Nurse verbally Yes Nurse verbally n/a confirms with the confirms with the team the name of team that the procedure(s) instrument, sponge, recorded and needle counts are correct (or N/A) Nurse verbally n/a Nurse verbally n/a confirms with the confirms with the team how the team whether there specimen is labeled are any equipment (including patient problems to be name), if applicable addressed Sign Out Complete 08/27/23 09:46:00 Last Modified By: BISHOP Winslow RN, Ruthann 08/27/23 09:42:26 Case Comments Finalized By: BISHOP Winslow RN, Ruthann Document Signatures Signed By: BISHOP Winslow RN, Ruthann 08/27/23 09:42 Normal [facility] Main OR Preoperative Recordo n 08-27-2023 Main OR Preoperative Record Holding Area Document Type FTURO Summary Primary Physician: Feliz RAY MD Finalized Date/Time: 08/27/23 09:32:45 Pt. Name: JULIANNE PABON/Sex: 1955 Female Med Rec #: [id number] Physician: Feliz RAY MD Financial #: [id number] Pt. Type: O Room/Bed: / Admit/Disch: 08/27/23 08:44:17 - Institution: Case Times Holding FTURO Pre-Care Text: Verifies consent for planned procedure, identifies individual values and wishes concerning care, includes family members in perioperative teaching Secures patient's records' belongings, and valuables, maintains patient's dignity and privacy, and maintains patient confidentiality Entry 1 In Holding 08/27/23 08:56:00 Outcomes Met? Yes Last Modified By: Nathaly Foster LPN 08/27/23 08:56:17 Post-Care Text: The patient participates in decisions affecting his or her perioperative plan of care The patient's right to privacy is maintained Surgery Checklist FTURO Entry 1 Patient Birthday, ID Band Procedure History and Physical, Identification: Check, Patient Verification: Surgical Consent, With Participation Patient NPO after Midnight: n/a Date/Time: 08/27/23 08:58:00 Personal Items: Cataract Lens Implant, Personal Items bilat lens implants, Dentures, Jewelry Comment: upper and lower full dentures, earrings, watch Limitations: up adl nallely Complaints of Pain: No Skin Integrity Intact, [place], Warm, & Dry Vitals - EU Blood Pressure 151/72 Pulse 71 bpm Respirations 18 br/min SPO2 94 % RN Reviewed Yes Last Modified By: BISHOP Winslow RN, Ruthann 08/27/23 09:32:43 General Comments: Temp 36.5 Finalized By: BISHOP Winslow RN, Ruthann Document Signatures Signed By: Nathaly Foster LPN 08/27/23 09:05 BISHOP Winslow RN, Ruthann 08/27/23 09:32 Normal [facility] Operative Reporton Operative Report Patient: JULIANNE PABON Age: 67 years Sex: Female : 1955 Associated Diagnoses: None Author: Feliz RAY MD Procedure Operative Information Details: Date/ Time: 08/27/2023 09:46:00. Pre-Op Dx: Bladder Mass - D41.4, Urgency Incontinence - N39.41, Urgency - R39.15. Post-Op Dx: Same. Anesthesia Type: Local. Procedure: Local Cystoscopy. Complications: None. Risks/Benefits/Infor med Consent: Surgical risks, benefits, details of the procedure have been explained to the patient, Full informed consent has been obtained. Intraoperative Information Prepped: Patient is brought back to the endoscopy suite, Patient is placed in modified dorso/lithotomy position, Patient prepped in the usual fashion with Betadine solution, 2% Xylocaine Jelly is placed per Urethra, After waiting several minutes the Cystoscope is introduced. The Urethra is: Normal. The Bladder is: Normal, No bladder tumors. No mucosal lesions noted. 1 open diverticulum on the left floor.. The ureteral orifices: Show efflux of clear urine. Devices Implanted: None. Removal: Cystoscope is removed, The patient tolerated it well. Postoperative Information Discharge: Patient is discharged home with antibiotic coverage, Follow up arranged. We will schedule her for Botox 100 units.. Normal [facility] Comment on above: Result Comment: Elec tronically Signed By: FLOR YBARRA, Feliz Agarwal\.br\Date and Time Signed: 08/27/23 09:47 EST Progress Note-Physicianon Progress Note-Physician Patient: JULIANNE PABON Age: 67 years Sex: Female : 1955 Associated Diagnoses: None Author: FLOR YBARRA, Feliz Agarwal Subjective X this lady has significant urinary frequency urgency and urge incontinence especially at nighttime. She has failed oral medications. On cystoscopy she had multiple flat red mucosal lesions throughout the bladder. She has been on a daily dose of Macrobid for 2 months. She states that she has had mild improvement of her urgency but it is still severe especially at nighttime. On cystoscopy today all of her red mucosal lesions had resolved. Review of Systems ROS reviewed as documented in chart Health Status Allergies: Allergic Reactions (Selected) Severity Not Documented Ciprofloxacin- Unknown. Codeine- Unknown. Desonide topical- Unknown. Morphine- Unknown. Current medications: Home Medications (12) Active budesonide/formotero l/glycopyrrolate 160 mcg-4.8 mcg-9 mcg/inh inhalation aerosol 2 puff(s), Inhalation, TID calcium-vitamin D , Daily celecoxib 100 mg Cap 100 mg = 1 cap(s), PRN, Oral, BID duloxetine 60 mg oral delayed release capsule 60 mg = 1 cap(s), Oral, Daily glucosamine , Oral, Daily Keflex 500 mg Cap 500 mg = 1 cap(s), Oral, Daily losartan 50 mg Tab 50 mg = 1 tab(s), Oral, Daily Macrobid 100 mg Cap 100 mg = 1 cap(s), Oral, Daily Misc Medication cognium, Daily multivitamin , Daily Pantoprazole [address] Tab 40 mg = 1 tab(s), Oral, Daily traZODONE 150 mg Tab 150 mg = 1 tab(s), Oral, Once a day (at bedtime) Problem list: All Problems Primary hypertension / SNOMED CT 97557313 / Confirmed Major depressive disorder with single episode, in full remission / ICD-10-CM F32.5 / Confirmed Anxiety / SNOMED CT 00096196 / Confirmed GERD without esophagitis / SNOMED CT 6165942890 / Confirmed Osteoarthritis / SNOMED CT 3155721061 / Confirmed Insomnia / SNOMED CT 456648128 / Confirmed Abdominal hernia / SNOMED CT 83750345 / Confirmed Urinary incontinence / SNOMED CT 7914284830 / Confirmed Asthma / SNOMED CT 314314013 / Confirmed Chronic obstructive pulmonary disease / ICD-10-CM J44.9 / Confirmed Hypercholesterolemia / SNOMED CT 71800353 / Confirmed Sleep disorder / SNOMED CT 05769251 / Confirmed BMI 45.0-49.9, adult / SNOMED CT 3676627351 / Confirmed Abdominal pain, diffuse / SNOMED CT 405493842 / Confirmed Recurrent ventral incisional hernia / SNOMED CT 6965202538 / Confirmed Mixed incontinence / SNOMED CT 36392409 / Confirmed Histories Past Medical History: No active or resolved past medical history items have been selected or recorded. Family History: Hypertension Mother Diabetes mellitus type 2 Mother Alcoholism Brother Stroke Mother Procedure history: Appendectomy (828771797). Comments: 01/01/2023 16:11 Blanka Guillermo MA 2010 Cataract (706004220). Comments: 01/01/2023 16:11 Blanka Guillermo MA 1997 Colonoscopy (793863077). Comments: 01/01/2023 16:12 Blanka Guillermo MA 2020 sheila Tonsillectomy (649709973). Comments: 01/01/2023 16:13 Blanka Guillermo MA 1968 Bilateral tubal ligation (525154169). Comments: 01/04/2023 11:09 Audrey Strong LPN 1983 Hemorrhoidectomy (79673110). Comments: 01/04/2023 11:10 Audrey Strong LPN 2020 Cholecystectomy (93639337). Arthroplasty of knee (24436988). Repair of ventral hernia (853915244). Social History Social & Psychosocial Habits Alcohol 05/07/2023 Use: Current Type: Liquor Frequency: 1-2 times per month Concerns about alcohol use in household: No Substance Abuse 01/04/2023 Use: Past Type: Marijuana Stopped at age: 33 Years Tobacco 05/24/2023 Tobacco Use: Former smoker, quit more, quit 30 years ago Smokeless tobacco use: Never Type: Cigarettes Tobacco use per day: 2 Started at age: 11.0 Years Stopped at age: 37 Years Concerns about tobacco use in household: No Comment: Former smoker, quit at age 31 - 05/07/2023 08:02 - Roshan Del Real Objective She is in no acute distress. Abdomen is soft and nontender. Impression and Plan Impression: #1. She has urinary urgency and urge incontinence refractory to medications. She is desirous to try Botox. Plan: #1. We are getting her scheduled for Botox 100 units. Normal [facility] Comment on above: Result Comment: Elec tronically Signed By: FLOR YBARRA, Feliz Arellano.br\Date and Time Signed: 08/27/23 09:51 EST Insurance Correspondenceon 10-06-2022 Insurance Correspondence [id number] #1.00TIFF Normal [facility] Urine Cytology ([facility])on Urine Cytology Diagnosis Info Invalid Interpretation Code [facility] Comment on above: Result Comment: A:Ur ine,Urine:Cystoscopy Interpretation - MicroScopic Description - Adequacy - Gross Description Site ID:A color Light Yellow fixative Alcohol Specimen designated Urine received in alcohol preservative and labeled with the patient?s name, consists of 80ml clear light yellow fluid. Electronically signed by : on: 07/05/2023 15:25:06 Performed By: #### 1 [id number] #### [facility] [address] [place] [address] Consent for Procedure/Surger yon 07-02-2023 Consent for Procedure/Surgery [id number] #1.00TIFF Normal [facility] Consent for Treatmenton 06-23 Consent for Treatment [id number] #1.00TIFF Normal [facility] IntraOperative Documentson 1 IntraOperative Documents [id number] #1.00TIFF [facility] Main OR Intraoperative Recor micheal 07-02-2023 Main OR Intraoperative Record IntraOp Document Type FTURO Summary Primary Physician: Feliz RAY MD Finalized Date/Time: 07/02/23 09:26:44 Pt. Name: JULIANNE PABON Nat Mccoy/Sex: 1955 Female Med Rec #: [id number] Physician: Feliz RAY MD Financial #: [id number] Pt. Type: O Room/Bed: / Admit/Disch: 07/02/23 07:39:28 - Institution: Case Times FTURO Entry 1 Patient Times In Room 07/02/23 09:02:00 Out Room 07/02/23 09:24:00 Procedure Times Start 07/02/23 09:15:00 Stop 07/02/23 09:20:00 Anesthesia Times Last Modified By: Dee Toussaint RN 07/02/23 09:26:39 Case Attendance FTURO Entry 1 Entry 2 Entry 3 Case Attendee Feliz RAY MD CHRISTIAN COUNSELOR, Dee Toussaint RN, Dee Stahl Role Performed Surgeon - Primary Scrub - Primary Director Home - Primary Time In 07/02/23 09:02:00 07/02/23 09:02:00 07/02/23 09:02:00 Time Out 07/02/23 09:24:00 07/02/23 09:24:00 07/02/23 09:24:00 Procedure CYSTOSCOPY LOCAL(.) CYSTOSCOPY LOCAL(.) CYSTOSCOPY LOCAL(.) Comments Last Modified By: Breana STEPHENS, Dee Toussaint RN, Dee Dye RN 07/02/23 09:26:40 07/02/23 09:26:40 07/02/23 09:26:40 Surgical Procedures FTURO Entry 1 Procedure Description Procedure CYSTOSCOPY LOCAL Modifiers . Surgeon Description CYSTOSCOPY LOCAL Primary Procedure Yes Primary Surgeon Feliz RAY MD 07/02/23 09:15:00 Stop 07/02/23 09:20:00 Anesthesia Type Local Surgical Service Urology Wound Class 2 - Clean-Contaminated Last Modified By: Dee Toussaint RN 07/02/23 09:21:29 General Case Data FTURO Pre-Care Text: Classifies surgical wound, implements aseptic technique, initiates traffic control Entry 1 Case Information OR URO 1 FT Case Level None Wound Class 2 - Clean-Contaminated Specialty Urology Preop Diagnosis MIXED INCONTINENCE Postop Same As Preop No Postop Diagnosis MIXED INCONTINENCE; Outcomes Met? Yes BLADDER LESIONS Last Modified By: Dee Toussaint RN 07/02/23 09:21:37 Post-Care Text: The patient is free from signs and symptoms of infection EU IntraOp - FTURO Pre-Care Text: Implements protective measures prior to operative or invasive procedure, confirms identity before the operative or invasive procedure, verifies operative procedure, surgical site, and laterality Entry 1 EU Perioperative Protocols Procedure(s) CYSTOSCOPY LOCAL(.) Patient Identity Birthday, ID Band Verified (select at Check, Patient least 2): Participation Consents / H and P HandP, Surgery/Procedure Operative Site N/A Verified Consent Marking Verified Surgical Site Yes Laterality Verified Yes Verified Procedure Verified Yes Correct Patient Yes Position Verified Availability Equipment, Medication Time Out Feliz RAY MD, Verified (If Participants Dee Field CST Applicable) Breana Johns RN, Kimberly Y Time Out Complete 07/02/23 09:06:00 Allergies Reviewed? Yes Allergies Reviewed Self/Patient With Body Position Frog Legged Prep Area PERINEUM Prep Agents Betadine Solution Skin. Condition Dry, Warm, Unable to Description UNABLE TO VISUALIZE DUE Visualize TO PATIENT PARTIALLY CLOTHED Additional Other (See Comment) Specimens Comment CYTOLOGY Specimens Collected Vitals - EU Blood Pressure 152/88 Pulse 63 bpm Respirations 18 br/min SPO2 95 % EBL 0 IandO - EU Total Intake 0 mL Total Output 0 mL Outcomes Met? Yes Last Modified By: Dee Toussaint RN 07/02/23 09:20:21 Post-Care Text: The patient is free from signs and symptoms of injury caused by extraneous objects Sign Out FTURO Entry 1 Before Patient Leaves OR Nurse verbally Yes Nurse verbally Yes confirms with the confirms with the team the name of team that the procedure(s) instrument, sponge, recorded and needle counts are correct (or N/A) Nurse verbally Yes Nurse verbally Yes confirms with the confirms with the team how the team whether there specimen is labeled are any equipment (including patient problems to be name), if applicable addressed Sign Out Complete 07/02/23 09:20:00 Last Modified By: Dee Toussaint RN 07/02/23 09:20:33 Case Comments Finalized By: Dee Toussaint RN Document Signatures Signed By: Dee Toussaint RN 07/02/23 09:26 Normal [facility] Main OR Preoperative Recordo n 07-02-2023 Main OR Preoperative Record Holding Area Document Type FTURO Summary Primary Physician: Feliz RAY MD Finalized Date/Time: 07/02/23 09:04:27 Pt. Name: JULIANNE PABON Nat Granda./Sex: 1955 Female Med Rec #: [id number] Physician: Feliz RAY MD Financial #: [id number] Pt. Type: O Room/Bed: / Admit/Disch: 07/02/23 07:39:28 - Institution: Case Times Holding FTURO Pre-Care Text: Verifies consent for planned procedure, identifies individual values and wishes concerning care, includes family members in perioperative teaching Secures patient's records' belongings, and valuables, maintains patient's dignity and privacy, and maintains patient confidentiality Entry 1 In Holding 07/02/23 08:17:00 Outcomes Met? Yes Last Modified By: Nathaly Foster LPN 07/02/23 08:17:27 Post-Care Text: The patient participates in decisions affecting his or her perioperative plan of care The patient's right to privacy is maintained Surgery Checklist FTURO Entry 1 Patient Birthday, ID Band Procedure Surgical Consent, With Identification: Check, Patient Verification: Patient Participation NPO after Midnight: n/a Date/Time: 07/02/23 08:17:00 Personal Items: Cataract Lens Implant, Personal Items bilat lens implants, Dentures, Jewelry Comment: upper and lower full dentures, watch Complaints of Pain: No Skin Integrity Intact, [place], Warm, & Dry Vitals - EU Blood Pressure 152/88 Pulse 68 bpm Respirations 18 br/min SPO2 95 % RN Reviewed Yes Last Modified By: Dee Toussaint RN 07/02/23 09:04:25 General Comments: Temp 97.3 Finalized By: Dee Toussaint RN Document Signatures Signed By: Nathaly Foster LPN 07/02/23 08:20 Dee Toussaint RN 07/02/23 09:04 Normal [facility] Operative Reporton Operative Report Patient: JULIANNE PABON Age: 67 years Sex: Female : 1955 Associated Diagnoses: None Author: Feliz RAY MD Procedure Operative Information Details: Date/ Time: 07/02/2023 09:26:00. Pre-Op Dx: Mixed Urinary Incontinence - N39.46. Post-Op Dx: Same, Bladder lesions. Anesthesia Type: Local. Procedure: Local Cystoscopy. Complications: None. Risks/Benefits/Infor med Consent: Surgical risks, benefits, details of the procedure have been explained to the patient, Full informed consent has been obtained. Intraoperative Information Prepped: Patient is brought back to the endoscopy suite, Patient is placed in modified dorso/lithotomy position, Patient prepped in the usual fashion with Betadine solution, 2% Xylocaine Jelly is placed per Urethra, After waiting several minutes the Cystoscope is introduced. The Urethra is: Normal. The Bladder is: Abnormal, Diffuse red flat lesions throughout the majority of the mucosa. No evidence of any papillary tumors or stones. No cystitis cystica lesions noted.. The ureteral orifices: Show efflux of clear urine. Specimens Removed: Bladder wash sent for Cytology test. Devices Implanted: None. Removal: Cystoscope is removed, The patient tolerated it well. Postoperative Information Discharge: Patient is discharged home with antibiotic coverage, Follow up arranged. She will start daily Macrobid 100 mg for 2 months. We will then repeat her cystoscopy. If she still has flat red lesions these then will need to be biopsied.. Normal [facility] Comment on above: Result Comment: Elec tronically Signed By: Feliz RAY MD\.br\Date and Time Signed: 07/02/23 09:28 EDT Urine Cytology ([facility])on UC Method of Extraction Cystoscopy Normal [facility] Comment on above: Performed By: #### 1 [id number] #### [facility] [address] [place] [address] UC Number of Jars 1 Invalid Interpretation Code [facility] Comment on above: Performed By: #### 1 [id number] #### [facility] [address] [place] [address] UC Specimen Cystoscopy Normal [facility] Comment on above: Performed By: #### 1 [id number] #### [facility] [address] [place] [address] UC Type of Service Technical Only Normal [facility] Comment on above: Performed By: #### 1 [id number] #### [facility] [address] [place] [address] Insurance Correspondenceon 0 06-17-2023 Insurance Correspondence [id number] 1#1.00CD:127 Normal [facility] Insurance Correspondence [id number] 0#1.00CD:127 WRONG DOS, new auth in chart Normal [facility] Consent for Procedure/Surger yon 06-04-2023 Consent for Procedure/Surgery [id number] 9#1.00CD:127 Normal [facility] IntraOperative Documentson 0 06-04-2023 IntraOperative Documents [id number] 1#1.00CD:127 Normal [facility] Consent for Treatmenton Consent for Treatment [id number] #1.00CD:127 Normal [facility] Insurance Correspondenceon 0 05-28-2023 Insurance Correspondence [id number]# 1.00CD:127 Normal [facility] Ambulatory Visit Summaryon 0 05-24-2023 Ambulatory Visit Summary JULIANNE PABON :1955 Visit Date:05/24/2023 Ambulatory Visit Instructions Your Diagnosis Mixed incontinence Tests Performed Urnls Dip Stick Auto w/o Microscopy POC 24680 Your Care Team Attending Physician - Feliz RAY MD Primary Care Physician - Bashir Alonzo MD This Is Your Medications List Contact prescribing physician if questions or concerns Non-Formulary Medication (Misc Medication) budesonide/formotero l/glycopyrrolate (budesonide/formoter ol/glycopyrrolate 160 mcg-4.8 mcg-9 mcg/inh inhalation aerosol) calcium-vitamin D celecoxib (celecoxib 100 mg Cap) duloxetine (duloxetine 60 mg oral delayed release capsule) glucosamine losartan (losartan 50 mg Tab) multivitamin pantoprazole (Pantoprazole [address] Tab) trazodone (traZODONE 150 mg Tab) Procedures Performed Appendectomy, Arthroplasty of knee, Bilateral tubal ligation, Cataract, Cholecystectomy, Colonoscopy, Hemorrhoidectomy, Repair of ventral hernia, Tonsillectomy. Discharge Vitals Heart Rate (Peripheral) 68 Respiratory Rate 16 Blood Pressure 140/87 Height 158 cm Height 62 in Weight 118 kg Weight 259.6 lb BMI 47.27 What to do next Scheduled Follow-Up Appointments Saturday 1:00 PM EST With: Bashir Alonzo MD Where: [facility] [address] [place] [address]- \.br\ You Need to Schedule the Following Appointments\.br\ Follow Up with FLOR YBARRA, Feliz Agarwal, URL When: \.br\ Comments:\.br\ Sched Cysto and Uros\.br\ Where:\.br\ [facility] [address]\.br\ [place] [address]-\.br\ Medications\.br\ What How Much When Instructions\.br\ Unchanged budesonide/ formoterol/ glycopyrrolate (budesonide/ formoterol/ glycopyrrolate 160 mcg-4.8 mcg-9 mcg/ inh inhalation aerosol) 2 Puffs Inhalation 3 times a day Contact prescribing physician if questions or concerns \.br\ Unchanged calcium-vitamin D Every day Contact prescribing physician if questions or concerns \.br\ Unchanged celecoxib (celecoxib 100 mg Cap) 1 Capsules By Mouth 2 times a day as needed for for arthritis Contact prescribing physician if questions or concerns \.br\ Unchanged duloxetine (duloxetine 60 mg oral delayed release capsule) 1 Capsules By Mouth Every day Contact prescribing physician if questions or concerns \.br\ Unchanged glucosamine By Mouth Every day Contact prescribing physician if questions or concerns \.br\ Unchanged losartan (losartan 50 mg Tab) 1 Tablets By Mouth Every day Contact prescribing physician if questions or concerns \.br\ Unchanged multivitamin Every day Contact prescribing physician if questions or concerns \.br\ Unchanged Non-Formulary Medication (Misc Medication) cognium Every day Contact prescribing physician if questions or concerns \.br\ Unchanged pantoprazole (Pantoprazole [address] Tab) 1 Tablets By Mouth Every day Contact prescribing physician if questions or concerns \.br\ Unchanged trazodone (traZODONE 150 mg Tab) 1 Tablets By Mouth Once a day (at bedtime) Contact prescribing physician if questions or concerns \.br\ Test Results\.br\ Urnls Dip Stick Auto w/o Microscopy POC 88288 (05/24/2023)\.br\ Bilirubin Urine Dipstick - Negative\.br\ Blood Urine Dipstick - Negative\.br\ Glucose Urine Dipstick - Negative\.br\ Ketones Urine Dipstick - Negative\.br\ Leukocytes Urine Dipstick - Negative\.br\ Nitrite Urine Dipstick - Negative\.br\ Protein Urine Dipstick - Negative\.br\ Specific [place] Urine Dipstick - 1.020\.br\ Urine Appearance Urine Dipstick - Clear\.br\ Urine Color Urine Dipstick - Yellow\.br\ Urobilinogen Urine Dipstick - Normal 0.2-1 EU/dl\.br\ pH Urine Dipstick - 5.5\.br\ Allergies\.br\ ciprofloxacin (Unknown)\.br\ codeine (Unknown)\.br\ desonide topical (Unknown)\.br\ morphine (Unknown)\.br\ Problems\.br\ Ongoing - Any problem that you are currently receiving treatment for.\.br\ Abdominal hernia\.br\ Abdominal pain, diffuse\.br\ Anxiety\.br\ Asthma\.br\ BMI 45.0-49.9, adult\.br\ Chronic obstructive pulmonary disease\.br\ GERD without esophagitis\.br\ Hypercholesterole sudarshan\.br\ Insomnia\.br\ Major depressive disorder with single episode, in full remission\.br\ Mixed incontinence\.br\ Osteoarthritis\.b r\ Primary hypertension\.br\ Recurrent ventral incisional hernia\.br\ Sleep disorder\.br\ Urinary incontinence\.br\ Education Materials\.br\ Kegel Exercises\.br\ \.br\ Kegel exercises can help strengthen your pelvic floor muscles. The pelvic floor is a group of muscles that support your rectum, small intestine, and bladder. In females, pelvic floor muscles also help support the uterus. These muscles help you control the flow of urine and stool (feces).\.br\ Kegel exercises are painless and simple. They do not require any equipment. Your provider may suggest Kegel exercises to:\.br\ ? \.br\ Improve bladder and bowel control.\.br\ ? \.br\ Improve sexual response.\.br\ ? \.br\ Improve weak pelvic floor muscles after surgery to remove the uterus (hysterectomy) or after , in females.\.br\ ? \.br\ Improve weak pelvic floor muscles after prostate gland removal or surgery, in males.\.br\ Kegel exercises involve squeezing your pelvic floor muscles. These are the same muscles you squeeze when you try to stop the flow of urine or keep from passing gas. The exercises can be done while sitting, standing, or lying down, but it is best to vary your position.\.br\ Ask your health care provider which exercises are safe for you. Do exercises exactly as told by your health care provider and adjust them as directed. Do not begin these exercises until told by your health care provider.\.br\ Exercises\.br\ How to do Kegel exercises:\.br\ 1. \.br\ Squeeze your pelvic floor muscles tight. You should feel a tight lift in your rectal area. If you are a female, you should also feel a tightness in your vaginal area. Keep your stomach, buttocks, and legs relaxed.\.br\ 2. \.br\ Hold the muscles tight for up to 10 seconds.\.br\ 3. \.br\ Breathe normally.\.br\ 4. \.br\ Relax your muscles for up to 10 seconds.\.br\ 5. \.br\ Repeat as told by your health care provider.\.br\ Repeat this exercise daily as told by your health care provider. Continue to do this exercise for at least 4?6 weeks, or for as long as told by your health care provider.\.br\ You may be referred to a physical therapist who can help you learn more about how to do Kegel exercises.\.br\ Depending on your condition, your health care provider may recommend:\.br\ ? \.br\ Varying how long you squeeze your muscles.\.br\ ? \.br\ Doing several sets of exercises every day.\.br\ ? \.br\ Doing exercises for several weeks.\.br\ ? \.br\ Making Kegel exercises a part of your regular exercise routine.\.br\ This information is not intended to replace advice given to you by your health care provider. Make sure you discuss any questions you have with your health care provider.\.br\ Document Revised: 01/18/2022 Document Reviewed: 01/18/2022 [employer] Patient Education ? 2022 [employer].\.br\ \.br\ [facility] Patient Educationon 05-24-20 Patient Education Obstetrics and Gynecology Kegel Exercises Kegel exercises can help strengthen your pelvic floor muscles. The pelvic floor is a group of muscles that support your rectum, small intestine, and bladder. In females, pelvic floor muscles also help support the uterus. These muscles help you control the flow of urine and stool (feces). Kegel exercises are painless and simple. They do not require any equipment. Your provider may suggest Kegel exercises to: ? Improve bladder and bowel control. ? Improve sexual response. ? Improve weak pelvic floor muscles after surgery to remove the uterus (hysterectomy) or after , in females. ? Improve weak pelvic floor muscles after prostate gland removal or surgery, in males. Kegel exercises involve squeezing your pelvic floor muscles. These are the same muscles you squeeze when you try to stop the flow of urine or keep from passing gas. The exercises can be done while sitting, standing, or lying down, but it is best to vary your position. Ask your health care provider which exercises are safe for you. Do exercises exactly as told by your health care provider and adjust them as directed. Do not begin these exercises until told by your health care provider. Exercises How to do Kegel exercises: 1. Squeeze your pelvic floor muscles tight. You should feel a tight lift in your rectal area. If you are a female, you should also feel a tightness in your vaginal area. Keep your stomach, buttocks, and legs relaxed. 2. Hold the muscles tight for up to 10 seconds. 3. Breathe normally. 4. Relax your muscles for up to 10 seconds. 5. Repeat as told by your health care provider. Repeat this exercise daily as told by your health care provider. Continue to do this exercise for at least 4?6 weeks, or for as long as told by your health care provider. You may be referred to a physical therapist who can help you learn more about how to do Kegel exercises. Depending on your condition, your health care provider may recommend: ? Varying how long you squeeze your muscles. ? Doing several sets of exercises every day. ? Doing exercises for several weeks. ? Making Kegel exercises a part of your regular exercise routine. This information is not intended to replace advice given to you by your health care provider. Make sure you discuss any questions you have with your health care provider. Document Revised: 01/18/2022 Document Reviewed: 01/18/2022 [employer] Patient Education ? 2022 [employer]. [facility] Urology Office/Clinic Noteon 05-24-2023 Urology Office/Clinic Note Chief Complaint Discuus Botox HPI Staff Pt is here today to discuss Botox therapy. Previous dx of mixed incontinence. Pt saw Marlena Pacheco as a new pt at last OV referred by Dr. Alonzo. Failed Oxybutynin trial and Trospium per Dr. Alonzo. NO Bladder Meds at this time. Unable to control bladder with coughing/sneezing. Leaks on her way to the restroom. Unable to control bladder at night. Urge awakens her. But can not make it to the restroom. Gets up 2-3x/night. Wears a pad during the day. Brief at night. 1 pad usually last all day. Denies Hx of UTI's PVR 34ml History of Present Illness Tests reviewed: reviewed UA I have reviewed the previous health record information and history for this patient from Iliana Pacheco PA-C. I have reviewed and verified the staff HPI to be accurate for this encounter. There have been no associated fever, chills, flank pain, or blood in the urine. Denies any urinary infections since last encounter. Review of Systems PHQ Score Initial Depression Screen Score: 0 ROS - Provider Constitutional: denies weight loss, denies hot flashes. Eyes: denies eye problems. Gastrointestinal: denies nausea, denies vomiting. Cardiovascular: denies chest pain or angina. Integumentary: no dryness Musculoskeletal: denies musculoskeletal symptoms. ENMT: denies otolaryngeal symptoms. Respiratory: no shortness of breath. Heme/Lymph: denies easy bleeding tendency, denies easy bruising tendency. Psychiatric: no confusion, no anxiety. Genitourinary: See HPI. Physical Exam Vitals & Measurements HR: 68(Peripheral) RR: 16 BP: 140/87 HT: 62 in HT: 158 cm WT: 118 kg WT: 259.6 lb BMI: 47.27 General Appearance: alert , no acute distress, well nourished, well developed female. Genitourinary: bladder nonpalpable, no flank pain. Assessment/Plan 1. Mixed incontinence (N39.46: Mixed incontinence) Per Dr Alonzo's last note, pt has been on Oxybutynin 10mg ER with no improvement. Also failed Trospium previously. Neither medication worked for sx and pt has intolerable dry mouth & constipation. Pt states she had 22 procedures on her bowels, due to mass diverticulitis. Stimulation offered by urology in [place] (pt not clear whether PTNS vs SNM), but does not want to continue to drive to [place] to see this provider, wanted someone closer to home. Pt also did PFPT in [place]. BBS (20), PVR 34mL UA today is negative for blood and infection. Pt states that she has had incontinence since she was a child. Pt states that when she has the urge at night, she leaks before she can get to the bathroom. Unable to control bladder at night. Urge awakens her. But can not make it to the restroom. Gets up 2-3x/night. Wears a pad during the day. Brief at night. 1 pad usually last all day. Denies Hx of UTI's, and visible blood in her urine. Also has ANNA w cough, laugh, sneeze. UUI >> ANNA. Advised pt that the ANNA is only managed with surgery, UUI is managed by meds, or Botox or neuromodulation. Pt states that the meds she tried in the past did not help improve her sxs at all. Pt states that the UUI is not as bad during the day, mostly at night. Pt states she voids 4-5x a day, and when she sits to void she has no hesitancy. Discussed having a cysto and Uros done. Will schedule cysto w/ a pelvic exam and urodynamics. The risks and benefits for cystoscopy have been discussed. The risks include bleeding, infection, and irritation of the bladder and urinary channel, among others. The patient, after being informed of procedural details and after questions have been answered, wishes to proceed. Full informed consent has been obtained. Will order Local anesthesia. Will schedule Urodynamics. The risks and benefits have been discussed. Follow-up With When Contact Information FLOR YBARRA, Feliz Agarwal, URL [facility] [address], [place] [address]- Additional Instructions: Sched Cysto and Uros Patient Education Sho Tijerina , personally scribed for Dr. Ray on 05/24/2023 11:11:30. . Documentation recorded by the scribe, Sho Ybarra, accurately reflects the services(s) I performed and decisions made by me. Problem List/Past Medical History Ongoing Abdominal hernia Abdominal pain, diffuse Anxiety Asthma BMI 45.0-49.9, adult Chronic obstructive pulmonary disease GERD without esophagitis Hypercholesterolemia Insomnia Major depressive disorder with single episode, in full remission Mixed incontinence Osteoarthritis Primary hypertension Recurrent ventral incisional hernia Sleep disorder Urinary incontinence Historical No qualifying data Procedure/Surgical History Appendectomy, Arthroplasty of knee, Bilateral tubal ligation, Cataract, Cholecystectomy, Colonoscopy, Hemorrhoidectomy, Repair of ventral hernia, Tonsillectomy. Medications budesonide/formotero l/glycopyrrolate 160 mcg-4.8 mcg- (more content not included)... Normal [facility] Comment on above: Result Comment: Elec tronically Signed By: Feliz RAY MD\.br\Date and Time Signed: 05/24/23 11:14 EDT\.br\Electronically Co-Signed By: Sho Ybarra\.earnestine\Date and Time Co-Signed: 05/24/23 11:11 EDT Dexa Scanson 05-15-2023 Dexa Scans [id number] #1.00CD:127 Normal [facility] Dexa Scans [id number] #1.00CD:127 Normal [facility] Ambulatory Visit Summaryon 0 05-07-2023 Ambulatory Visit Summary JULIANNE PABON :1955 Visit Date:05/07/2023 Ambulatory Visit Instructions Your Diagnosis Annual visit for general adult medical examination without abnormal findings Primary hypertension Ovarian failure Chronic obstructive pulmonary disease Major depressive disorder with single episode, in full remission Morbid obesity with BMI of 45.0-49.9, adult Anxiety Asthma GERD without esophagitis Insomnia Urinary incontinence Tests Performed BD Bone Density DEXA -- Results Pending -- Please visit your patient portal for your results or contact your primary care physician. Your Care Team Attending Physician - Bashir Alonzo MD. Primary Care Physician - Bashir Alonzo MD. This Is Your Medications List Non-Formulary Medication (Misc Medication) budesonide/formotero l/glycopyrrolate (budesonide/formoter ol/glycopyrrolate 160 mcg-4.8 mcg-9 mcg/inh inhalation aerosol) calcium-vitamin D celecoxib (celecoxib 100 mg Cap) duloxetine (duloxetine 60 mg oral delayed release capsule) glucosamine losartan (losartan 50 mg Tab) multivitamin pantoprazole (Pantoprazole [address] Tab) trazodone (traZODONE 150 mg Tab) Procedures Performed Appendectomy, Arthroplasty of knee, Bilateral tubal ligation, Cataract, Cholecystectomy, Colonoscopy, Hemorrhoidectomy, Repair of ventral hernia, Tonsillectomy. Discharge Vitals Heart Rate (Peripheral) 67 Blood Pressure 132/78 Height 162 cm Height 64 in Weight 118.5 kg Weight 260.7 lb BMI 45.15 What to do next Scheduled Follow-Up Appointments Saturday 1:00 PM EST With: Bashir Alonzo MD Where: [facility] [address] [place] [address]- \.br\ Medications\.br\ What How Much When Instructions\.br\ Unchanged budesonide/ formoterol/ glycopyrrolate (budesonide/ formoterol/ glycopyrrolate 160 mcg-4.8 mcg-9 mcg/ inh inhalation aerosol) 2 Puffs Inhalation 3 times a day\.br\ Unchanged calcium-vitamin D Every day\.br\ Unchanged celecoxib (celecoxib 100 mg Cap) 1 Capsules By Mouth 2 times a day as needed for for arthritis\.br\ Unchanged duloxetine (duloxetine 60 mg oral delayed release capsule) 1 Capsules By Mouth Every day\.br\ Unchanged glucosamine By Mouth Every day\.br\ Unchanged losartan (losartan 50 mg Tab) 1 Tablets By Mouth Every day\.br\ Unchanged multivitamin Every day\.br\ Unchanged Non-Formulary Medication (Misc Medication) cognium Every day\.br\ Unchanged pantoprazole (Pantoprazole [address] Tab) 1 Tablets By Mouth Every day\.br\ Unchanged trazodone (traZODONE 150 mg Tab) 1 Tablets By Mouth Once a day (at bedtime)\.br\ Allergies\.br\ ciprofloxacin (Unknown)\.br\ codeine (Unknown)\.br\ desonide topical (Unknown)\.br\ morphine (Unknown)\.br\ Problems\.br\ Ongoing - Any problem that you are currently receiving treatment for.\.br\ Abdominal hernia\.br\ Abdominal pain, diffuse\.br\ Anxiety\.br\ Asthma\.br\ BMI 45.0-49.9, adult\.br\ Chronic obstructive pulmonary disease\.br\ GERD without esophagitis\.br\ Hypercholesterole sudarshan\.br\ Insomnia\.br\ Major depressive disorder with single episode, in full remission\.br\ Mixed incontinence\.br\ Osteoarthritis\.b r\ Primary hypertension\.br\ Recurrent ventral incisional hernia\.br\ Sleep disorder\.br\ Urinary incontinence\.br\ Education Materials\.br\ Fall Prevention in the Home, Adult\.br\ Falls can cause injuries and affect people of all ages. There are many simple things that you can do to make your home safe and to help prevent falls. Ask for help when making these changes, if needed.\.br\ What actions can I take to prevent falls?\.br\ General instructions\.br\ ? \.br\ Use good lighting in all rooms. Replace any light bulbs that burn out, turn on lights if it is dark, and use night-lights.\.br \ ? \.br\ Place frequently used items in wofw-qj-zlphj places. Lower the shelves around your home if necessary.\.br\ ? \.br\ Set up furniture so that there are clear paths around it. Avoid moving your furniture around.\.br\ ? \.br\ Remove throw rugs and other tripping hazards from the floor.\.br\ ? \.br\ Avoid walking on wet floors.\.br\ ? \.br\ Fix any uneven floor surfaces.\.br\ ? \.br\ Add color or contrast paint or tape to grab bars and handrails in your home. Place contrasting color strips on the first and last steps of staircases.\.br\ ? \.br\ When you use a stepladder, make sure that it is completely opened and that the sides and supports are firmly locked. Have someone hold the ladder while you are using it. Do not climb a closed stepladder.\.br\ ? \.br\ Know where your pets are when moving through your home.\.br\ What can I do in the bathroom?\.br\ \.br\ \.br\ ? \.br\ Keep the floor dry. Immediately clean up any water that is on the floor.\.br\ ? \.br\ Remove soap buildup in the tub or shower regularly.\.br\ ? \.br\ Use nonskid mats or decals on the floor of the tub or shower.\.br\ ? \.br\ Attach bath mats securely with double-sided, nonslip rug tape.\.br\ ? \.br\ If you need to sit down while you are in the shower, use a plastic, nonslip stool.\.br\ ? \.br\ Install grab bars by the toilet and in the tub and shower. Do not use towel bars as grab bars.\.br\ What can I do in the bedroom?\.br\ ? \.br\ Make sure that a bedside light is easy to reach.\.br\ ? \.br\ Do not use oversized bedding that reaches the floor.\.br\ ? \.br\ Have a firm chair that has side arms to use for getting dressed.\.br\ What can I do in the kitchen?\.br\ ? \.br\ Clean up any spills right away.\.br\ ? \.br\ If you need to reach for something above you, use a sturdy step stool that has a grab bar.\.br\ ? \.br\ Keep electrical cables out of the way.\.br\ ? \.br\ Do not use floor tuvaluan or wax that makes floors slippery. If you must use wax, make sure that it is non-skid floor wax.\.br\ What can I do with my stairs?\.br\ ? \.br\ Do not leave any items on the stairs.\.br\ ? \.br\ Make sure that you have a light switch at the top and the bottom of the stairs. Have them installed if you do not have them.\.br\ ? \.br\ Make sure that there are handrails on both sides of the stairs. Fix handrails that are broken or loose. Make sure that handrails are as long as the staircases.\.br\ ? \.br\ Install non-slip stair treads on all stairs in your home.\.br\ ? \.br\ Avoid having throw rugs at the top or bottom of stairs, or secure the rugs with carpet tape to prevent them from moving.\.br\ ? \.br\ Choose a carpet design that does not hide the edge of steps on the stairs.\.br\ ? \.br\ Check any carpeting to make sure that it is firmly attached to the stairs. Fix any carpet that is loose or worn.\.br\ What can I do on the outside of my home?\.br\ ? \.br\ Use bright outdoor lighting.\.br\ ? \.br\ Regularly repair the edges of walkways and driveways and fix any cracks.\.br\ ? \.br\ Remove high doorway thresholds.\.br\ ? \.br\ Trim any shrubbery on the main path into your home.\.br\ ? \.br\ Regularly check that handrails are securely fastened and in good repair. Both sides of all steps should have handrails.\.br\ ? \.br\ Install guardrails along the edges of any raised decks or porches.\.br\ ? \.br\ Clear walkways of debris and clutter, including tools and rocks.\.br\ ? \.br\ Have leaves, snow, and ice cleared regularly.\.br\ ? \.br\ Use sand or salt on walkways during winter months.\.br\ ? \.br\ In the garage, clean up any spills right away, including grease or oil spills.\.br\ What other actions can I take?\.br\ ? \.br\ Wear closed-toe shoes that fit well and support your feet. Wear shoes that have rubber soles or low heels.\.br\ ? \.br\ Use mobility aids as needed, such as canes, walkers, scooters, and crutches.\.br\ ? \.br\ Review your medicines with your health care provider. Some medicines can cause dizziness or changes in blood pressure, which increase your risk of falling.\.br\ Talk with your health care provider about other ways that you can decrease your risk of falls. This may include working with a physical therapist or security trainer to improve your strength, balance, and endurance.\.br\ Where to find more information\.br\ ? \.br\ Centers for Disease Control and Prevention, [place]: www.cdc.gov\.br\ ? \.br\ [employer] [place] on A[place]: www.day.nih.gov\. br\ Contact a health care provider if:\.br\ ? \.br\ You are afraid of falling at home.\.br\ ? \.br\ You feel weak, drowsy, or dizzy at home.\.br\ ? \.br\ You fall at home.\.br\ Summary\.br\ ? \.br\ There are many simple things that you can do to make your home safe and to help prevent falls.\.br\ ? \.br\ Ways to make your home safe include removing tripping hazards and installing grab bars in the bathroom.\.br\ ? \.br\ Ask for help when making these changes in your home.\.br\ This information is not intended to replace advice given to you by your health care provider. Make sure you discuss any questions you have with your health care provider.\.br\ [facility] CHEMISTRYOrdered By: SYSTEM SYSTEM on 05-07-2023 Albumin [Mass/Vol] 4.2 g/dL Normal 3.3 - 5.0 gm/dL [facility] Remisol Albumin/Globulin [Mass ratio] 1.4 {ratio} Normal 1.1 - 2.2 [facility] Remisol ALP [Catalytic activity/Vol] 31 [iU]/d Normal 21 - 98 Int._Unit/L [facility] ALT No additional P-5'-P [Catalytic activity/Vol] 21 [iU]/d Normal 6 - 46 Int._Unit/L [facility] Anion gap [Moles/Vol] 12 mmol/L Normal 6 - 16 mEq/L [facility] AST [Catalytic activity/Vol] 23 [iU]/d Normal 5 - 43 Int._Unit/L [facility] Bilirubin [Mass/Vol] 0.4 mg/dL Normal 0.0 - 1.1 mg/dL [facility] Calcium [Mass/Vol] 9.8 mg/dL Normal 8.9 - 11.1 mg/dL [facility] Chloride [Moles/Vol] 107 mmol/L Normal 101 - 111 mmol/L [facility] CO2 [Moles/Vol] 24 mmol/L Normal 21 - 31 mmol/L [facility] Creatinine [Mass/Vol] 1.1 mg/dL Normal 0.5 - 1.3 mg/dL [facility] Remisol GFR/1.73 sq M.predicted among non-blacks MDRD (S/P/Bld) [Vol rate/Area] 55 mL/min/1.73 m2 Low >=59mL/min/1.73 m2 [facility] Chem S Globulin (S) [Mass/Vol] 3.1 g/dL Normal 1.4 - 4.0 gm/dL [facility] Remisol Glucose [Mass/Vol] 108 mg/dL Normal 55 - 199 mg/dL [facility] Remisol Potassium [Moles/Vol] 4.1 mmol/L Normal 3.5 - 5.3 mmol/L [facility] Remisol Protein [Mass/Vol] 7.3 g/dL Normal 6.0 - 7.8 gm/dL [facility] Remisol Sodium [Moles/Vol] 139 mmol/L Normal 135 - 145 mmol/L [facility] Remisol Urea nitrogen [Mass/Vol] 20 mg/dL Normal 5 - 21 mg/dL [facility] Remisol Urea nitrogen/Creatinine [Mass ratio] 18 mg/mg Normal 10 - 20 [facility] Remisol CMPon 05-07-2023 Albumin [Mass/Vol] 4.2 g/dL Normal 3.3-5.0 [facility] Comment on above: Performed By: #### 2 [id number], [id number] ####[facility] [address] [place] [address] Albumin/Globulin (S) [Mass conc ratio] 1.4 Normal 1.1-2.2 [facility] Comment on above: Performed By: #### 2 [id number], [id number] ####[facility] [address] [place] [address] ALP [Catalytic activity/Vol] 31 Int._Unit/L Normal 21-98 [facility] Comment on above: Performed By: #### 2 [id number], [id number] ####[facility] [address] [place] [address] ALT No additional P-5'-P [Catalytic activity/Vol] 21 Int._Unit/L Normal 6-46 [facility] Comment on above: Performed By: #### 2 [id number], [id number] ####[facility] [address] [place] [address] Anion gap [Moles/Vol] 12 mmol/L Normal 6-16 [facility] Comment on above: Performed By: #### 2 [id number], [id number] ####[facility] [address] [place] [address] AST [Catalytic activity/Vol] 23 Int._Unit/L Normal 5-43 [facility] Comment on above: Performed By: #### 2 [id number], [id number] ####[facility] [address] [place] [address] Bilirubin [Mass/Vol] 0.4 mg/dL Normal 0.0-1.1 [facility] Comment on above: Performed By: #### 2 [id number], [id number] ####[facility] [address] [place] [address] Calcium [Mass/Vol] 9.8 mg/dL Normal 8.9-11.1 [facility] Comment on above: Performed By: #### 2 [id number], [id number] ####[facility] [address] [place] [address] Chloride [Moles/Vol] 107 mmol/L Normal 101-111 [facility] Comment on above: Performed By: #### 2 [id number], [id number] ####[facility] [address] [place] [address] CO2 [Moles/Vol] 24 mmol/L Normal 21-31 [facility] Comment on above: Performed By: #### 2 [id number], [id number] ####[facility] [address] [place] [address] Creatinine [Mass/Vol] 1.1 mg/dL Normal 0.5-1.3 [facility] Comment on above: Performed By: #### 2 [id number], [id number] ####[facility] [address] [place] [address] Globulin (S) [Mass/Vol] 3.1 g/dL Normal 1.4-4.0 [facility] Comment on above: Performed By: #### 2 [id number], [id number] ####[facility] [address] [place] [address] Glucose [Mass/Vol] 108 mg/dL Normal 55-199 [facility] Comment on above: Result Comment: If t his glucose result represents a fasting glucose, interpretation should refer to the following reference range: 55-99 mg/dL Performed By: #### 2 [id number], [id number] ####[facility] [address] [place] [address] Potassium [Moles/Vol] 4.1 mmol/L Normal 3.5-5.3 [facility] Comment on above: Performed By: #### 2 076505, [id number] ####[facility] [address] [place] [address] Protein [Mass/Vol] 7.3 g/dL Normal 6.0-7.8 [facility] Comment on above: Performed By: #### 2 939672, [id number] ####[facility] [address] [place] [address] Sodium [Moles/Vol] 139 mmol/L Normal 135-145 [facility] Comment on above: Performed By: #### 2 743673, [id number] ####[facility] [address] [place] [address] Urea nitrogen [Mass/Vol] 20 mg/dL Normal 5-21 [facility] Comment on above: Performed By: #### 2 158895, [id number] ####[facility] [address] [place] [address] Urea nitrogen/Creatinine [Mass ratio] 18 No Units Normal 10-20 [facility] Comment on above: Performed By: #### 2 [id number], [id number] ####[facility] [address] [place] [address] Family Medicine Office/Clini c Noteon 05-07-2023 Family Medicine Office/Clinic Note Chief Complaint Subsequent Medicare Wellness Visit Review of Systems PHQ Score Initial Depression Screen Score: 0 Physical Exam Vitals & Measurements HR: 67(Peripheral) BP: 132/78 SpO2: 94% HT: 162 cm HT: 64 in WT: 118.5 kg WT: 260.7 lb BMI: 45.15 Assessment/Plan 1. Annual visit for general adult medical examination without abnormal findings (Z00.00: Encounter for general adult medical examination without abnormal findings) The patient was given a customized and personalized print out of all the current AHRQ USPSTF?s recommendations for preventative services and all current CDC recommended immunizations, relevant risk recommendations and the following patient brochures were given. Reviewed Medicare preventative services checklist. [facility]-Falls Prevention and home safety screening reviewed. Patient denies any falls in last 12 months, voices no worry about falling, exhibits no problems with sitting, standing, or ambulation. Pt voices understanding with keeping walk way area free of clutter to prevent tripping and/or falling. [place] Advance Directives reviewed, patient does not have LW/POA, information provided. Patient denies any problems with ADL?s and Instrumental ADL?s. Cognitive screening completed with memory and clock face drawing, no deficits noted. Immunization Record reviewed with the patient. COVID vaccines have been administered, with 2 boosters, immunization record is up to date. Allergies and medications reviewed and up to date. Patient denies concerns with taking medication as prescribed, reviewed OTC medications with patient, medication list up to date. Blood tests were reviewed: CMP ordered. Labs were ordered, will have completed prior to next PCP visit. Will have labs completed with [facility]. Colonoscopy up to date, due for repeat 2025. DEXA scan ordered. Mammogram last completed 10/02/2022. Reviewed concerns with bladder control see below #11. Reviewed pain symptoms with patient: no pain at present. Reviewed all outside providers that patient follows. Last visit summary notes available in chart and/or have been requested. Follow up scheduled, 09/10/2023 AWV has been scheduled, 05/08/2024 Alcohol screening is available yearly for patients that do and/or do not use alcohol. This Counseling Interventions are available to reduce alcohol use when there is a concern with misuse or is placing an individual at risk for future problems. The USPSTF defines alcohol misuse as risky, hazardous, or harmful drinking which places an individual at risk for future problems with alcohol consumption. In the general population, alcohol consumption becomes risky or hazardous when consuming: *Greater than 7 drinks per week or greater than 3 drinks per occasion for women and persons greater then 65 years old. *Greater then 14 drinks per week or greater then 4 drinks per occasion for men 65 years old and younger. This was covered on this date with 6 minutes, this included preparing to see the patient, face to face patient care, completing clinical documentation, obtaining and/or reviewing obtained history, counseling and educating the patient with the increased risks associated with alcohol misuse. Completed AUDIT risk assessment, patients risk score 1. Patient denies concerns with use, will continue to monitor with yearly Medicare wellness visits. 2. Primary hypertension (I10: Essential (primary) hypertension) Patient is taking losartan daily as directed. HTN stoplight reviewed with BP goal to be <140/90. Reviewed different factors that can alter blood pressure readings. Education handout provided with s/s to monitor for and report to provider. Patient is encouraged to increase portions of fruit, vegetables, fiber and increase exercise as much as tolerable. Reviewed importance with monitoring foods high in salt content and encouraged to limit intake, if unsure encouraged to discuss with their PCP. Encouraged to eat more chicken, fish and lean white meats and limits red meats in diet. Discussed importance with keeping BP under good control to reduce CVA risk factors. Will continue to f/u with PCP during office visits and as needed. 3. Ovarian failure (E28.39: Other primary ovarian failure) Reviewed recommended bone mineral density testing for women who are 65 years of age or older. Educational handout for Bone Health reviewed and provided to the patient during today's Medicare Wellness visit. Medicare recommends testing every 5 years if results are WNL and every 2 years if results shows low bone mass. This is a deterioration of bone structure and can increase the risk of a fracture with falls. Eating a well-balanced diet with plenty of Calcium and Vitamin D will help to protect your bones. Daily weight-bearing physical activity can help build strong bones, improve bone amounts, and may reduce the risk of weakening of bones (Osteoporosis) later in life. Dexa scan ordered, order sent to [facility]. 4. Chronic obstructive pulmonary disease (J (more content not included)... Normal [facility] Comment on above: Result Comment: Elec tronically Signed By: Polina Jansen\.br\Date and Time Signed: 05/07/23 14:20 EDT\.br\Electronically Co-Signed By: Roshan Del Real.br\Date and Time Co-Signed: 05/07/23 09:16 EDT Patient Educationon 05-07-20 23 Patient Education Caregiving Fall Prevention in the Home, Adult Falls can cause injuries and affect people of all ages. There are many simple things that you can do to make your home safe and to help prevent falls. Ask for help when making these changes, if needed. What actions can I take to prevent falls? General instructions ? Use good lighting in all rooms. Replace any light bulbs that burn out, turn on lights if it is dark, and use night-lights. ? Place frequently used items in jzum-xp-rbern places. Lower the shelves around your home if necessary. ? Set up furniture so that there are clear paths around it. Avoid moving your furniture around. ? Remove throw rugs and other tripping hazards from the floor. ? Avoid walking on wet floors. ? Fix any uneven floor surfaces. ? Add color or contrast paint or tape to grab bars and handrails in your home. Place contrasting color strips on the first and last steps of staircases. ? When you use a stepladder, make sure that it is completely opened and that the sides and supports are firmly locked. Have someone hold the ladder while you are using it. Do not climb a closed stepladder. ? Know where your pets are when moving through your home. What can I do in the bathroom? ? Keep the floor dry. Immediately clean up any water that is on the floor. ? Remove soap buildup in the tub or shower regularly. ? Use nonskid mats or decals on the floor of the tub or shower. ? Attach bath mats securely with double-sided, nonslip rug tape. ? If you need to sit down while you are in the shower, use a plastic, nonslip stool. ? Install grab bars by the toilet and in the tub and shower. Do not use towel bars as grab bars. What can I do in the bedroom? ? Make sure that a bedside light is easy to reach. ? Do not use oversized bedding that reaches the floor. ? Have a firm chair that has side arms to use for getting dressed. What can I do in the kitchen? ? Clean up any spills right away. ? If you need to reach for something above you, use a sturdy step stool that has a grab bar. ? Keep electrical cables out of the way. ? Do not use floor tuvaluan or wax that makes floors slippery. If you must use wax, make sure that it is non-skid floor wax. What can I do with my stairs? ? Do not leave any items on the stairs. ? Make sure that you have a light switch at the top and the bottom of the stairs. Have them installed if you do not have them. ? Make sure that there are handrails on both sides of the stairs. Fix handrails that are broken or loose. Make sure that handrails are as long as the staircases. ? Install non-slip stair treads on all stairs in your home. ? Avoid having throw rugs at the top or bottom of stairs, or secure the rugs with carpet tape to prevent them from moving. ? Choose a carpet design that does not hide the edge of steps on the stairs. ? Check any carpeting to make sure that it is firmly attached to the stairs. Fix any carpet that is loose or worn. What can I do on the outside of my home? ? Use bright outdoor lighting. ? Regularly repair the edges of walkways and driveways and fix any cracks. ? Remove high doorway thresholds. ? Trim any shrubbery on the main path into your home. ? Regularly check that handrails are securely fastened and in good repair. Both sides of all steps should have handrails. ? Install guardrails along the edges of any raised decks or porches. ? Clear walkways of debris and clutter, including tools and rocks. ? Have leaves, snow, and ice cleared regularly. ? Use sand or salt on walkways during winter months. ? In the garage, clean up any spills right away, including grease or oil spills. What other actions can I take? ? Wear closed-toe shoes that fit well and support your feet. Wear shoes that have rubber soles or low heels. ? Use mobility aids as needed, such as canes, walkers, scooters, and crutches. ? Review your medicines with your health care provider. Some medicines can cause dizziness or changes in blood pressure, which increase your risk of falling. Talk with your health care provider about other ways that you can decrease your risk of falls. This may include working with a physical therapist or security trainer to improve your strength, balance, and endurance. Where to find more information ? Centers for Disease Control and Prevention, [place]: www.cdc.gov ? [place] [employer] A[place]: www.day.nih.gov Contact a health care provider if: ? You are afraid of falling at home. ? You feel weak, drowsy, or dizzy at home. ? You fall at home. Summary ? There are many simple things that you can do to make your home safe and to help prevent falls. ? Ways to make your home safe include removing tripping hazards and installing grab bars in the bathroom. ? Ask for help when making these changes in your home. This information is not intended to replace advice given to you by your health ca (more content not included)... Normal [facility] Screenson 05-07-2023 Screens [id number] #[id number] Normal [facility] eGFRon 05-07-2023 GFR/1.73 sq M.predicted among non-blacks MDRD (S/P/Bld) [Vol rate/Area] 55 mL/min/1.73 m2 Low >=59 [facility] Comment on above: Order Comment: Order added by Discern Expert. Result Comment: Senior Cost Estimator maribel kidney disease could be indicated at eGFR's of less than 60 mL/min/1.73m2. Kidney failure is indicated at less than 15 mL/min/1.73m2. Performed By: #### 2 [id number], [id number] ####[facility] [address] [place] [address] Ambulatory Visit Summaryon 0 04-30-2023 Ambulatory Visit Summary ABIODUNJHONATHANMACARIO Johns :1955 Visit Date:04/30/2023 Ambulatory Visit Instructions Your Diagnosis Mixed incontinence Tests Performed Urnls Dip Stick Auto w/o Microscopy POC 79666 Your Care Team Attending Physician - ELIZABETH MURRIETA, ILIANA Law Primary Care Physician - Bashir Alonzo MD Referring Physician - Bashir Alonzo MD. This Is Your Medications List Contact prescribing physician if questions or concerns budesonide/formotero l/glycopyrrolate (budesonide/formoter ol/glycopyrrolate 160 mcg-4.8 mcg-9 mcg/inh inhalation aerosol) celecoxib (celecoxib 100 mg Cap) duloxetine (duloxetine 60 mg oral delayed release capsule) losartan (losartan 50 mg Tab) pantoprazole (Pantoprazole [address] Tab) trazodone (traZODONE 150 mg Tab) [Image Removed: STOP]Stop taking these medications oxybutynin (oxybutynin 10 mg ER Tab) trospium (trospium 20 mg oral tablet) Procedures Performed Appendectomy, Arthroplasty of knee, Bilateral tubal ligation, Cataract, Cholecystectomy, Colonoscopy, Hemorrhoidectomy, Repair of ventral hernia, Tonsillectomy. Discharge Vitals Heart Rate (Peripheral) 74 Blood Pressure 158/90 Height 158 cm Height 62 in Weight 118 kg Weight 259.6 lb BMI 47.27 What to do next Scheduled Follow-Up Appointments Saturday 8:00 AM EDT With: Where: [place] [id number] [place] [id number]- \.br\ You Need to Schedule the Following Appointments\.br\ Follow Up with ILIANA PACHECO PA-C, URL When: \.br\ Where:\.br\ [address]\ [place] [address]\.br\ Medications\.br\ What How Much When Instructions\.br\ Unchanged budesonide/ formoterol/ glycopyrrolate (budesonide/ formoterol/ glycopyrrolate 160 mcg-4.8 mcg-9 mcg/ inh inhalation aerosol) 2 Puffs Inhalation 2 times a day Contact prescribing physician if questions or concerns \.br\ Unchanged celecoxib (celecoxib 100 mg Cap) 1 Capsules By Mouth 2 times a day as needed for for arthritis Contact prescribing physician if questions or concerns \.br\ Unchanged duloxetine (duloxetine 60 mg oral delayed release capsule) 1 Capsules By Mouth Every day Contact prescribing physician if questions or concerns \.br\ Unchanged losartan (losartan 50 mg Tab) 1 Tablets By Mouth Every day Contact prescribing physician if questions or concerns \.br\ Unchanged pantoprazole (Pantoprazole [address] Tab) 1 Tablets By Mouth Every day Contact prescribing physician if questions or concerns \.br\ Unchanged trazodone (traZODONE 150 mg Tab) 1 Tablets By Mouth Once a day (at bedtime) Contact prescribing physician if questions or concerns \.br\ \.br\ What How Much When Comments\.br\ Stop Taking oxybutynin (oxybutynin 10 mg ER Tab) 1 Tablets By Mouth Every day\.br\ Stop Taking trospium (trospium 20 mg oral tablet) 1 Tablets By Mouth 2 times a day\.br\ Test Results\.br\ Urnls Dip Stick Auto w/o Microscopy POC 01128 (04/30/2023)\.br\ Bilirubin Urine Dipstick - Negative\.br\ Blood Urine Dipstick - Negative\.br\ Glucose Urine Dipstick - Negative\.br\ Ketones Urine Dipstick - Negative\.br\ Leukocytes Urine Dipstick - Trace\.br\ Nitrite Urine Dipstick - Negative\.br\ Protein Urine Dipstick - Negative\.br\ Specific [place] Urine Dipstick - 1.010\.br\ Urine Appearance Urine Dipstick - Clear\.br\ Urine Color Urine Dipstick - Yellow\.br\ Urobilinogen Urine Dipstick - Normal 0.2-1 EU/dl\.br\ pH Urine Dipstick - 6\.br\ Allergies\.br\ ciprofloxacin (Unknown)\.br\ codeine (Unknown)\.br\ desonide topical (Unknown)\.br\ morphine (Unknown)\.br\ Problems\.br\ Ongoing - Any problem that you are currently receiving treatment for.\.br\ Abdominal hernia\.br\ Abdominal pain, diffuse\.br\ Anxiety\.br\ Asthma\.br\ BMI 45.0-49.9, adult\.br\ Chronic obstructive pulmonary disease\.br\ GERD without esophagitis\.br\ Hypercholesterole sudarshan\.br\ Insomnia\.br\ Major depressive disorder with single episode, in full remission\.br\ Mixed incontinence\.br\ Osteoarthritis\.b r\ Primary hypertension\.br\ Recurrent ventral incisional hernia\.br\ Sleep disorder\.br\ Urinary incontinence\.br\ Education Materials\.br\ Kegel Exercises\.br\ \.br\ Kegel exercises can help strengthen your pelvic floor muscles. The pelvic floor is a group of muscles that support your rectum, small intestine, and bladder. In females, pelvic floor muscles also help support the uterus. These muscles help you control the flow of urine and stool (feces).\.br\ Kegel exercises are painless and simple. They do not require any equipment. Your provider may suggest Kegel exercises to:\.br\ ? \.br\ Improve bladder and bowel control.\.br\ ? \.br\ Improve sexual response.\.br\ ? \.br\ Improve weak pelvic floor muscles after surgery to remove the uterus (hysterectomy) or after , in females.\.br\ ? \.br\ Improve weak pelvic floor muscles after prostate gland removal or surgery, in males.\.br\ Kegel exercises involve squeezing your pelvic floor muscles. These are the same muscles you squeeze when you try to stop the flow of urine or keep from passing gas. The exercises can be done while sitting, standing, or lying down, but it is best to vary your position.\.br\ Ask your health care provider which exercises are safe for you. Do exercises exactly as told by your health care provider and adjust them as directed. Do not begin these exercises until told by your health care provider.\.br\ Exercises\.br\ How to do Kegel exercises:\.br\ 1. \.br\ Squeeze your pelvic floor muscles tight. You should feel a tight lift in your rectal area. If you are a female, you should also feel a tightness in your vaginal area. Keep your stomach, buttocks, and legs relaxed.\.br\ 2. \.br\ Hold the muscles tight for up to 10 seconds.\.br\ 3. \.br\ Breathe normally.\.br\ 4. \.br\ Relax your muscles for up to 10 seconds.\.br\ 5. \.br\ Repeat as told by your health care provider.\.br\ Repeat this exercise daily as told by your health care provider. Continue to do this exercise for at least 4?6 weeks, or for as long as told by your health care provider.\.br\ You may be referred to a physical therapist who can help you learn more about how to do Kegel exercises.\.br\ Depending on your condition, your health care provider may recommend:\.br\ ? \.br\ Varying how long you squeeze your muscles.\.br\ ? \.br\ Doing several sets of exercises every day.\.br\ ? \.br\ Doing exercises for several weeks.\.br\ ? \.br\ Making Kegel exercises a part of your regular exercise routine.\.br\ This information is not intended to replace advice given to you by your health care provider. Make sure you discuss any questions you have with your health care provider.\.br\ Document Revised: 01/18/2022 Document Reviewed: 01/18/2022 [employer] Patient Education ? 2022 [employer].br\ \.br\ [facility] Patient Educationon 04-30-20 Patient Education Obstetrics and Gynecology Kegel Exercises Kegel exercises can help strengthen your pelvic floor muscles. The pelvic floor is a group of muscles that support your rectum, small intestine, and bladder. In females, pelvic floor muscles also help support the uterus. These muscles help you control the flow of urine and stool (feces). Kegel exercises are painless and simple. They do not require any equipment. Your provider may suggest Kegel exercises to: ? Improve bladder and bowel control. ? Improve sexual response. ? Improve weak pelvic floor muscles after surgery to remove the uterus (hysterectomy) or after , in females. ? Improve weak pelvic floor muscles after prostate gland removal or surgery, in males. Kegel exercises involve squeezing your pelvic floor muscles. These are the same muscles you squeeze when you try to stop the flow of urine or keep from passing gas. The exercises can be done while sitting, standing, or lying down, but it is best to vary your position. Ask your health care provider which exercises are safe for you. Do exercises exactly as told by your health care provider and adjust them as directed. Do not begin these exercises until told by your health care provider. Exercises How to do Kegel exercises: 1. Squeeze your pelvic floor muscles tight. You should feel a tight lift in your rectal area. If you are a female, you should also feel a tightness in your vaginal area. Keep your stomach, buttocks, and legs relaxed. 2. Hold the muscles tight for up to 10 seconds. 3. Breathe normally. 4. Relax your muscles for up to 10 seconds. 5. Repeat as told by your health care provider. Repeat this exercise daily as told by your health care provider. Continue to do this exercise for at least 4?6 weeks, or for as long as told by your health care provider. You may be referred to a physical therapist who can help you learn more about how to do Kegel exercises. Depending on your condition, your health care provider may recommend: ? Varying how long you squeeze your muscles. ? Doing several sets of exercises every day. ? Doing exercises for several weeks. ? Making Kegel exercises a part of your regular exercise routine. This information is not intended to replace advice given to you by your health care provider. Make sure you discuss any questions you have with your health care provider. Document Revised: 01/18/2022 Document Reviewed: 01/18/2022 [email or web address] Patient Education ? 2022 [employer] [facility] Urology Office/Clinic Noteon 04-30-2023 Urology Office/Clinic Note Chief Complaint urinary concerns HPI Staff Evaluation requested by Dr Bashir Alonzo due to urinary incontinence. Pt is a new pt. Never before seen in our office. Per Dr Alonzo's last note, pt has been on Oxybutynin 10mg ER with no improvement, she is still taking this but thinks it is messing with her bowels, constipation. Even with increased water intake. Is not working with urinary issues. stimulation done in [place], but does not want to continue to drive to [place] for this. she is still does not want to make this drive. CT AP w/ 02/06/2023 Bladder and Bowel Questionnaire 20 Dysuria: denies Incomplete bladder emptying: denies Hematuria: denies visible blood Frequency: every couple hours Urgency: sometimes she can Nocturia: twice a night Stream: denies, normal stream Leaking: yes Post void dripping: _ Wearing pads/ Depends: _pads daily has to change twice a day, depends changed once nightly Urge incontinence: always leaks Stress incontinence: yes sneezing, coughing, and laughing, and lifting Incontinence without Sensory Awareness: _denies Abdominal pain: denies Flank pain: denies Sexual complaints: denies History of Present Illness staff HPI reviewed and agree. Review of Systems PHQ Score Initial Depression Screen Score: 0 no fever, chills, malaise, myalgia. no rash/lesions. no chest pain, palpitations, or SOB. no abdominal pain, nausea, vomiting. no unilateral calf swelling, redness, pain Physical Exam Vitals & Measurements HR: 74(Peripheral) BP: 158/90 HT: 62 in HT: 158 cm WT: 118 kg WT: 259.6 lb BMI: 47.27 General: nontoxic, NAD Mouth: moist mucosa Lungs: normal respiratory effort Cardio: regular rate, good distal perfusion Abdomen: nondistended, no suprapubic distention or tenderness, no CVA tenderness Neurologic: Grossly normal Skin: No rashes or suspicious lesions Assessment/Plan Pt is a new pt. 1. Mixed incontinence (N39.46: Mixed incontinence) Per Dr Alonzo's last note, pt has been on Oxybutynin 10mg ER with no improvement. Also failed Trospium previously. Neither medication worked for sx and pt has intolerable dry mouth & constipation. Stimulation offered by urology in [place] (pt not clear whether PTNS vs SNM), but does not want to continue to drive to [place] to see this provider, wanted someone closer to home. BBS 20 UA today shows trace leuks only. Pt states that she has had incontinence since she was a child. Pt states that when she has the urge, she floods before she can get to the bathroom. Much more than a leak. Also has ANNA w cough, laugh, sneeze. UUI >> ANNA. Pt states she drinks 2 cups of coffee in the morning and then water for the rest of the day (more to combat the dry mouth SE from the Oxybutynin). Pt states that she feels she empties all of the way. Discussed medication management with Myrbetriq/Gemtesa. Discussed treatment options such as Botox or nerve stimulation (SNM through our clinic vs PTNS elsewhere) or PFPT. Of all the options pt prefers Botox. Discussed the possibility of having a cysto and/or Urodynamics testing done before having the Botox, this depends on the provider. Will send message to LG/PRW to confirm. Advised pt to d/c taking Oxybutynin at this time. The procedural risks, benefits, details, and treatment alternatives have been discussed with the patient. These include bleeding, infection, continued problems with overactive bladder, inability to empty the bladder which could require an indwelling catheter or need for in/out catheterization to empty the bladder, and need for repeat procedures over time (usually lasts up to six months), as well as fatigue and insomnia, among others. There is a minimal risk of Botox entering the blood stream and causing neurological problems, which is quite rare. Full informed consent has been obtained. Pt education pamphlet provided. did not get a PVR while pt was in clinic today. would be good to get one when she comes to submit pre-op UA so that we have one for comparison after she has Botox Follow-up With When Contact Information ILIANA PACHECO PA-C, URL [address] [address] Additional Instructions: Patient Education Kegel Exercises Documentation recorded by the scribsabrina Ybarra accurately reflects the services(s) I performed and decisions made by me. Authenticated by Iliana Pacheco PA-C on 04/30/2023 14:31:45. I, Sho Ybarra, personally scribed for Iliana Pacheco PA-C on 04/30/2023 14:24:10. . Problem List/Past Medical History Ongoing Abdominal hernia Abdominal pain, diffuse Anxiety Asthma BMI 45.0-49.9, adult Chronic obstructive pulmonary disease GERD without esophagitis Hypercholesterolemia Insomnia Major depressive disorder with single episode, in full remission Mixed incontinence Osteoarthritis Primary hypertension Recurrent ventral incisi (more content not included)... [facility] Comment on above: Result Comment: Elec tronically Signed By: ILIANA PACHECO PA-C\.br\Date and Time Signed: 04/30/23 14:32 EDT\.br\Electronically Co-Signed By: Sho Ybarra\.br\Date and Time Co-Signed: 04/30/23 14:24 EDT Consultation Noteon 04-29-20 Consultation Note [id number] #1.00CD:127 [facility] Family Medicine Office/Clini c Noteon 04-06-2023 Family Medicine Office/Clinic Note Chief Complaint follow up mental and htn HPI Staff 3 month follow up Follow up for Mental Status: Medication adherence- Yes, takes medication as prescribed MEdication refill needed: yes_ Suicidal thoughts-Not at this time Most recent SEVERO: 1 Most recent PHQ9: 2 Patient is here for follow up on hypertension. How often are you checking your blood pressure? occasionally _ What are your average readings? 179/86 Do you have any of the following symptoms? Chest Pain? no Palpitations? no PAINTER/SOB? no Headache? no Peripheral Edema? no Light Headedness? no Yearly BMP: had labs in February from Dr Álvarez Refill needed?: yes needs her trospium refilled today and would like you to refill all her other meds except the breztri and not to dr álvarez History of Present Illness Julianne Pabon is a 67-year-old female who presents today for a follow-up evaluation. The patient states that her breathing is alright, but she still has a cough. She has tried a new breathing machine. She is seeing Dr. Webber on 04/09/2023, to find out all of the results. She states that her acid reflux is doing well. She was seen by a surgeon for her abdominal pain, and was told that she has adhesions. She states that he told her that he does not want to do anything because she has had too many surgeries. However, her abdominal pain has improved. Her blood pressure is slightly elevated today. She also states that her anxiety and depression are doing well. Review of Systems PHQ Score Initial Depression Screen Score: 0 Physical Exam Vitals & Measurements T: 36.5 ?C(Oral) HR: 78(Peripheral) RR: 16 BP: 150/92 SpO2: 92% HT: 62 in HT: 157 cm WT: 121.7 kg WT: 267.74 lb BMI: 49.37 General: alert, no acute distress ENMT: oral mucosa moist, no pharyngeal erythema or exudate Cardiovascular: regular rate and rhythm, normal peripheral perfusion Respiratory: Lungs CTA, respirations non labored Extremities: no deformity, no trauma Neurological: oriented x 4, LOC appropriate for age, CN II-XII intact, motor strength equal & normal bilaterally, speech normal Assessment/Plan 1. Major depressive disorder with single episode, in full remission (F32.5: Major depressive disorder, single episode, in full remission) Patient is at goal, stable. Continue on medication as before. We will refill today. 2. Anxiety (F41.9: Anxiety disorder, unspecified) Again, at goal. We will refill the duloxetine 60 mg today. No other issues. 3. Primary hypertension (I10: Essential (primary) hypertension) Patient is slightly elevated today. Patient is normally at goal. Last blood pressure was 128/76 mmHg and we will continue to monitor. We will see the patient before the end of the year to recheck this. 4. Abdominal pain, diffuse (R10.84: Generalized abdominal pain) This was secondary to adhesions. Patient states that the pain has gone away and we will continue to monitor this. 5. GERD without esophagitis (K21.9: Gastro-esophageal reflux disease without esophagitis) We will do pantoprazole refill as the patient is stable on her medication. 6. Chronic obstructive pulmonary disease, unspecified COPD type (J44.9: Chronic obstructive pulmonary disease, unspecified) Patient is following up with pulmonology and will continue to monitor with them. 7. BMI 45.0-49.9, adult (Z68.42: Body mass index [BMI] 45.0-49.9, adult) BMI education given. Portions of this record may have been created with voice recognition artificial intelligence software, specifically [employer], [employer] and or [employer]. Substitutions may have occurred due to the inherent limitations of voice recognition and artificial intelligence software. Documentation services were performed after patient or guardian consented to allow [employer] to record this visit. JULIA forensic identification specialist and provider reviewed before signing. JULIA: Rachana Mace Follow-up No qualifying data available Problem List/Past Medical History Ongoing Abdominal hernia Abdominal pain, diffuse Anxiety Asthma BMI 45.0-49.9, adult Chronic obstructive pulmonary disease GERD without esophagitis Hypercholesterolemia Insomnia Major depressive disorder with single episode, in full remission Osteoarthritis Primary hypertension Recurrent ventral incisional hernia Sleep disorder Urinary incontinence Historical No qualifying data Procedure/Surgical History Appendectomy, Arthroplasty of knee, Bilateral tubal ligation, Cataract, Cholecystectomy, Colonoscopy, Hemorrhoidectomy, Repair of ventral hernia, Tonsillectomy. Medications budesonide/formotero l/glycopyrrolate 160 mcg-4.8 mcg-9 mcg/inh inhalation aerosol, 2 puff(s), Inhalation, BID celecoxib 100 mg Cap, 100 mg= 1 cap(s), Oral, BID, PRN, 1 refills duloxetine 60 mg oral delayed release capsule, 60 mg= 1 cap(s), Oral, Daily losartan 50 mg Tab, 50 mg= 1 tab(s), Oral, Daily, 1 refills oxybutynin 10 mg ER Tab, 10 mg= 1 tab(s), (more content not included)... Normal [facility] Comment on above: Result Comment: Elec tronically Signed By: Bashir Alonzo MD\.br\Date and Time Signed: 04/06/23 10:36 EDT\.br\Electronically Co-Signed By: Rachana Mace\.br\Date and Time Co-Signed: 04/02/23 16:43 EDT Ambulatory Visit Summaryon 0 04-02-2023 Ambulatory Visit Summary JULIANNE PABON :1955 Visit Date:04/02/2023 Ambulatory Visit Instructions Your Diagnosis Major depressive disorder with single episode, in full remission Anxiety Primary hypertension Abdominal pain, diffuse GERD without esophagitis Chronic obstructive pulmonary disease, unspecified COPD type BMI 45.0-49.9, adult Your Care Team Attending Physician - Bashir Alonzo MD Primary Care Physician - Bashir Alonzo MD This Is Your Medications List celecoxib (celecoxib 100 mg Cap) duloxetine (duloxetine 60 mg oral delayed release capsule) losartan (losartan 50 mg Tab) oxybutynin (oxybutynin 10 mg ER Tab) pantoprazole (Pantoprazole [address] Tab) trazodone (traZODONE 150 mg Tab) Contact prescribing physician if questions or concerns budesonide/formotero l/glycopyrrolate (budesonide/formoter ol/glycopyrrolate 160 mcg-4.8 mcg-9 mcg/inh inhalation aerosol) trospium (trospium 20 mg oral tablet) Procedures Performed Appendectomy, Arthroplasty of knee, Bilateral tubal ligation, Cataract, Cholecystectomy, Colonoscopy, Hemorrhoidectomy, Repair of ventral hernia, Tonsillectomy. Discharge Vitals Temperature (Oral) 36.5 ?C Heart Rate (Peripheral) 78 Respiratory Rate 16 Blood Pressure 150/92 Height 157 cm Height 62 in Weight 121.7 kg Weight 267.74 lb BMI 49.37 What to do next Scheduled Follow-Up Appointments Saturday 1:30 PM EDT With: ELIZABETH MURRIETA, ILIANA Law Where: [facility] [address] [place] [address]- \.br\ Medications\.br\ What How Much When Instructions\.br\ Changed duloxetine (duloxetine 60 mg oral delayed release capsule) 1 Capsules By Mouth Every day Pickup at [facility]/pharmacy #[id number]\.br\ Changed losartan (losartan 50 mg Tab) 1 Tablets By Mouth Every day Pickup at [facility]/pharmacy #[id number]\.br\ Changed oxybutynin (oxybutynin 10 mg ER Tab) 1 Tablets By Mouth Every day Pickup at [facility]/pharmacy #[id number]\.br\ Changed pantoprazole (Pantoprazole [address] Tab) 1 Tablets By Mouth Every day Pickup at [facility]/pharmacy #[id number]\.br\ Changed trazodone (traZODONE 150 mg Tab) 1 Tablets By Mouth Once a day (at bedtime) Pickup at [facility]/pharmacy #[id number]\.br\ Unchanged celecoxib (celecoxib 100 mg Cap) 1 Capsules By Mouth 2 times a day as needed for for arthritis Pickup at [facility]/pharmacy #[id number]\.br\ Unchanged budesonide/ formoterol/ glycopyrrolate (budesonide/ formoterol/ glycopyrrolate 160 mcg-4.8 mcg-9 mcg/ inh inhalation aerosol) 2 Puffs Inhalation 2 times a day Contact prescribing physician if questions or concerns \.br\ Unchanged trospium (trospium 20 mg oral tablet) 1 Tablets By Mouth 2 times a day Contact prescribing physician if questions or concerns \.br\ Pharmacy Information\.br\ [facility]/pharmacy #[id number]: [address], [place] [id number] [phone]\.br\ Allergies\.br\ ciprofloxacin (Unknown)\.br\ codeine (Unknown)\.br\ desonide topical (Unknown)\.br\ morphine (Unknown)\.br\ Problems\.br\ Ongoing - Any problem that you are currently receiving treatment for.\.br\ Abdominal hernia\.br\ Abdominal pain, diffuse\.br\ Anxiety\.br\ Asthma\.br\ BMI 45.0-49.9, adult\.br\ Chronic obstructive pulmonary disease\.br\ GERD without esophagitis\.br\ Hypercholesterole sudarshan\.br\ Insomnia\.br\ Major depressive disorder with single episode, in full remission\.br\ Osteoarthritis\.b r\ Primary hypertension\.br\ Recurrent ventral incisional hernia\.br\ Sleep disorder\.br\ Urinary incontinence\.br\ \.br\ [facility] RAD - CT Reporton 04-01-2023 RAD - CT Report [id number] #1.00CD:127 Normal [facility] Consultation Noteon 03-15-20 Consultation Note [id number]# 1.00CD:127 Normal [facility] CT Abdomen/Pelvis w/ Contras ton 02-07-2023 CT Abdomen/Pelvis w/ Contrast Exam Date/Time: 02/06/2023 07:10 EDT Reason for Exam: Hernia suspected, abdominal wall;Other (please specify) Report IMPRESSION: NO ACUTE PATHOLOGY IN THE ABDOMEN OR PELVIS. DATE:02/06/2023 6:43 AM EXAMINATION: CT Abdomen/Pelvis w/ Contrast CLINICAL HISTORY: Difficulty eating Hernia suspected, abdominal wall COMPARISON: None available. TECHNIQUE: Contiguous axial CT sections of the abdomen and pelvis. 100 cc of IV contrast administered.. All CT scans at this facility use dose modulation, iterative reconstruction, and/or weight based dosing when appropriate to reduce radiation dose to as low as reasonably achievable. FINDINGS: Liver: Hepatic steatosis. No focal hepatic lesion. No biliary dilatation. Gallbladder:Patient is status post cholecystectomy. Spleen:Negative Pancreas:Negative Kidneys/adrenal: No solid renal lesion. No hydronephrosis. No renal or ureteral stone. Adrenals unremarkable Bowel:No obstruction, diverticulitis, or colitis. Appendix:There is no CT evidence for appendicitis. Nodes:No retroperitoneal, mesenteric or pelvic lymphadenopathy. Aorta:Negative. No aneurysm Peritoneum:Signs of previous abdominal wall hernia surgery. No evidence of abdominal hernia at this time. Pelvis:No mass. Bladder negative Bones:Skeletal structures unremarkable. Lung bases:No significant basilar changes. Report Ordering Provider: Davie MEZA FINAL REPORT Dictated: 02/07/2023 8:02 am WoisBhaskar burleson MD Signed (Electronic Signature): 02/07/2023 8:02 am Signed by: Bhaskar Lawrence MD Transcribed by: DELGADO Technologist: DEVAN Technical Comments GFR (mL/min/1/73m2) >60 Contrast: Isovue 300 Contrast amount in ml's: 100 Rectal Contrast Given? No Oral contrast amount in ml's: 900 Normal [facility] Consent for Treatmenton 01-21 Consent for Treatment [id number] #1.00CD:127 Normal [facility] CHEMISTRYOrdered By: SYSTEM SYSTEM on 01-29-2023 Creatinine [Mass/Vol] 1.0 mg/dL Normal 0.5 - 1.3 mg/dL [facility] [facility] GFR/1.73 sq M.predicted among non-blacks MDRD (S/P/Bld) [Vol rate/Area] 62 mL/min/1.73 m2 Normal >=59mL/min/1.73 m2 [facility] S Consent for Treatmenton Consent for Treatment [id number] #1.00CD:127 Normal [facility] Creatinineon 01-29-2023 Creatinine [Mass/Vol] 1.0 mg/dL Normal 0.5-1.3 [facility] Comment on above: Performed By: #### 2 [id number], [id number] #### [facility] [address] [place] [address] Physician Orderon 01-29-2023 Physician Order [id number] 2#1.00CD:127 Normal [facility] Physician Order [id number] #1.00CD:127 Normal [facility] eGFRon 01-29-2023 GFR/1.73 sq M.predicted among non-blacks MDRD (S/P/Bld) [Vol rate/Area] 62 mL/min/1.73 m2 Normal >=59 [facility] Comment on above: Order Comment: Order added by Discern Expert. Result Comment: Senior Cost Estimator maribel kidney disease could be indicated at eGFR's of less than 60 mL/min/1.73m2. Kidney failure is indicated at less than 15 mL/min/1.73m2. Performed By: #### 2 [id number], [id number] #### [facility] [address] [place] [address] XR CHEST 2 Von 12-05-2022 XR CHEST 2 V EXAM: XR CHEST 2 V HISTORY: Chronic obstructive lung disease COMPARISON: None. TECHNIQUE: PA and lateral views of the chest. FINDINGS: The cardiomediastinal silhouette is normal. No focal consolidation is identified. There is no pneumothorax. No pleural effusion is noted. The osseous structures are intact. IMPRESSION: No acute cardiopulmonary process. Electronically authenticated by: OLVIN BARRY Date: 2022-12-05 11:11 Normal [facility] MG MAMM SCREEN 3D JEWEL CADon 10-02-2022 MG MAMM SCREEN 3D JEWEL CAD Patient: JULIANNE PABON Exam Date: 10/02/2022 : 1955 Gender:F Ordering : [facility] Admission #: [id number] Family : Order #: [id number] CLICK HERE TO VIEW EXAM RADIOLOGY REPORT PROCEDURE: MAMMOGRAM SCREENING 3D BILATERAL CAD COMPARISON: MG MAMM SCREEN JEWEL W CAD, 07/22/2017. MG MAMM SCREEN JEWEL W CAD, 07/21/2018. INDICATIONS: Screening mammography Calculator Name NCI Breast Cancer Risk Assessment Tool 5 Year Breast Cancer Risk Not Reported. Lifetime Breast Cancer Risk Not Reported. Personal Breast Cancer No Personal Ovarian Cancer No Treatments None Family Cancers None LOCATION: [facility] BREAST COMPOSITION: Scattered areas fibroglandular density. FINDINGS: DIAGNOSTIC CATEGORY 1--NEGATIVE. NO CHANGE FROM COMPARISON ASSESSMENT. Scattered benign-appearing calcifications are present. Scattered benign-appearing lymph nodes are present. RIGHT BREAST: No significant suspicious finding. LEFT BREAST: No significant suspicious finding. RECOMMENDATIONS: ROUTINE MAMMOGRAM AND CLINICAL EVALUATION IN 12 MONTHS. PLEASE NOTE: A NORMAL MAMMOGRAM DOES NOT EXCLUDE THE POSSIBILITY OF BREAST CANCER. A CLINICALLY SUSPICIOUS PALPABLE LUMP SHOULD BE BIOPSIED. Dictated by: Devon Alcantara MD on 10/09/2022 at 13:00 Approved by: Devon Alcantara MD on 10/09/2022 at 13:05 Normal [facility] Covid-19 PCR (CVDTB)on SARS-CoV-2 (COVID-19) RNA DINO+probe Ql (Unsp spec) Not detected Normal NOT DETECTED [facility] Comment on above: Result Comment: This test is not yet approved or cleared by the [place] FDA. When there are no FDA-approved or cleared tests available, and other criteria are met, FDA can make tests available under an emergency access mechanism called an Emergency Use Authorization (EUA). The EUA for this test is supported by the [place] of Health and Human Service's (HHS's) declaration that circumstances exist to justify the emergency use of in vitro diagnostics for the detection and/or diagnosis of the virus that causes COVID-19. This EUA will remain in effect (meaning this test can be used) for the duration of the COVID-19 declaration justifying emergency of IVDs, unless it is terminated or revoked by FDA (after which the test may no longer be used). When diagnostic testing is negative, the possibility of a false negative should be considered in the context of a patient's recent exposures and the presence of clinical signs and symptoms consistent with SARS-CoV-2. Performed By: #### C VDTBH #### [facility] [address] [place] [address] Dr. Melina Villatoro INFLUENZA A AND B AGon 08-27 INFLUENZA A AG Negative Normal NEGATIVE SEE COMMENT [facility] Comment on above: Performed By: #### I NFLUAB #### [facility] [address] [place] [address] Dr. Melina Villatoro INFLUENZA B AG Negative Normal NEGATIVE SEE COMMENT [facility] Comment on above: Performed By: #### I NFLUAB #### [facility] [address] [place] [address] Dr. Melina Villatoro INTERNAL CONTROLS Within Normal Limits Normal Wi thin Normal Limits [facility] Comment on above: Performed By: #### I NFLUAB #### [facility] [address] [place] [address] Dr. Melina Villatoro HEPATITIS C ANTIBODYon 06-29 Hep C Virus Ab <0.1 Normal 0.0-0.9 [facility] Comment on above: Result Comment: Nega tive: < 0.8 Indeterminate: 0.8 - 0.9 Positive: > 0.9 . HCV antibody alone does not differentiate between previous resolved infection and active infection. The CDC and current clinical guidelines recommend that a positive HCV antibody result be followed up with an HCV RNA test to support the diagnosis of acute HCV infection. [facility] offers Hepatitis C Virus (HCV) RNA, Diagnosis, DINO (958837) and Hepatitis C Virus (HCV) Antibody with reflex to Quantitative Real-time PCR ([id number]). Performed By: #### H CV #### [facility] [address] [place] [address] Dr. Melina Villatoro LIPID PROFILEon 06-28-2022 CHOL-HDL RATIO NORM SEE BELOW Normal [facility] Comment on above: Result Comment: 3.3 - 4.4 LOW RISK 4.4 - 7.1 AVERAGE RISK 7.1 - 11.0 MODERATE RISK >11.0 HIGH RISK Performed By: #### L IPID #### [facility] [address] [place] [address] Dr. Melina Villatoro Cholesterol [Mass/Vol] 182 mg/dL Normal <=200 [facility] Comment on above: Performed By: #### L IPID #### [facility] [address] [place] [address] Dr. Melina Villatoro Cholesterol in HDL [Mass/Vol] 58 mg/dL Normal 40-60 [facility] Comment on above: Performed By: #### L IPID #### [facility] [address] [place] [address] Dr. Melina Villatoro Cholesterol in LDL [Mass/Vol] 91.2 mg/dL Normal [facility] Comment on above: Performed By: #### L IPID #### [facility] [address] [place], [place] [id number] Dr. Melina Villatoro Cholesterol.total/C holesterol in HDL [Mass ratio] 3.1 {ratio} Normal [facility] Comment on above: Performed By: #### L IPID #### [facility] [address] [place] [address] Dr. Melina Villatoro HDL NORMAL > or = 60 mg/dl - LOW CARDIOVASCULAR RISK <40 mg/dl - HIGH CARDIOVASCULAR RISK Normal [facility] Comment on above: Performed By: #### L IPID #### [facility] [address] [place] [address] Dr. Melina Villatoro LDL CALC NORMAL SEE BELOW Normal [facility] Comment on above: Result Comment: <100 mg/dl OPTIMAL 100 - 129 mg/dl NEAR OR ABOVE OPTIMAL 130 - 159 mg/dl BORDERLINE HIGH 160 - 189 mg/dl HIGH >190 mg/dl VERY HIGH Performed By: #### L IPID #### [facility] [address] [place] [address] Dr. Melina Villatoro Triglyceride [Mass/Vol] 164 mg/dL Critically high <=150 [facility] Comment on above: Performed By: #### L IPID #### [facility] [address] [place] [address] Dr. Melina Villatoro VLDL CALC 32.8 mg/dL Normal [facility] Comment on above: Performed By: #### L IPID #### [facility] [address] [place] [address] Dr. Melina Villatoro CBC AUTO DIFFon 04-17-2022 BASO # 0.1 103/ul Normal 0.0-0.1 [facility] Comment on above: Performed By: #### C BC #### [facility] [address] [place] [address] Dr. Melina Villatoro Basophils/100 WBC (Bld) 1.1 % Normal 0.2-2.0 [facility] Comment on above: Performed By: #### C BC #### [facility] [address] [place] [address] Dr. Melina Villatoro EO # 0.1 103/ul Normal 0.0-0.7 [facility] Comment on above: Performed By: #### C BC #### [facility] [address] [place] [address] Dr. Melina Villatoro Eosinophils/100 WBC (Bld) 2.4 % Normal 0.9-7.0 [facility] Comment on above: Performed By: #### C BC #### [facility] [address] [place] [address] Dr. Melina Villatoro Erythrocyte distribution width (RBC) [Ratio] 14.1 % Normal 11.0-15.0 [facility] Comment on above: Performed By: #### C BC #### [facility] [address] [place] [address] Dr. Melina Villatoro Hematocrit (Bld) [Volume fraction] 41.3 % Normal 36.0-48.0 [facility] Comment on above: Performed By: #### C BC #### [facility] [address] [place] [address] Dr. Melina Villatoro Hemoglobin (Bld) [Mass/Vol] 13.5 g/dL Normal 12.0-16.0 [facility] Comment on above: Performed By: #### C BC #### [facility] [address] [place] [address] Dr. Melina Villatoro IG # 0.03 10e3/ul Normal 0.00-0.03 [facility] Comment on above: Performed By: #### C BC #### [facility] [address] [place] [address] Dr. Melina Villatoro IG % 0.6 % Critically high 0.0-0.5 [facility] Comment on above: Performed By: #### C BC #### [facility] [address] [place] [address] Dr. Melina Villatoro LYMPH # 1.2 103/ul Normal 1.2-3.8 [facility] Comment on above: Performed By: #### C BC #### [facility] [address] [place] [address] Dr. Melina Villatoro Lymphocytes/100 WBC (Bld) 22.2 % Normal 20.5-60.0 [facility] Comment on above: Performed By: #### C BC #### [facility] [address] [place] [address] Dr. Melina Villatoro MANUAL DIFF REQ NO Normal [facility] Comment on above: Performed By: #### C BC #### [facility] [address] [place] [address] Dr. Melina Villatoro MCH (RBC) [Entitic mass] 31.4 pg Normal 26.7-34.0 [facility] Comment on above: Performed By: #### C BC #### [facility] [address] [place] [address] Dr. Melina Villatoro MCHC (RBC) [Mass/Vol] 32.7 g/dL Normal 29.9-35.2 [facility] Comment on above: Performed By: #### C BC #### [facility] [address] [place] [address] Dr. Melina Villatoro MCV (RBC) [Entitic vol] 96.0 fL Normal 81.0-99.0 [facility] Comment on above: Performed By: #### C BC #### [facility] [address] [place] [address] Dr. Melnia Villatoro MONO # 0.5 103/ul Normal 0.3-0.8 [facility] Comment on above: Performed By: #### C BC #### [facility] [address] [place] [address] Dr. Melina Villatoro Monocytes/100 WBC (Bld) 9.5 % Normal 1.7-12.0 [facility] Comment on above: Performed By: #### C BC #### [facility] [address] [place] [address] Dr. Melina Villatoro NEUT # 3.5 103/ul Normal 1.4-6.5 [facility] Comment on above: Performed By: #### C BC #### [facility] [address] [place] [address] Dr. Melina Villatoro Neutrophils/100 WBC (Bld) 64.2 % Normal 43.0-75.0 [facility] Comment on above: Performed By: #### C BC #### [facility] [address] [place] [address] Dr. Melina Villatoro Platelet mean volume (Bld) [Entitic vol] 9.0 fL Critically low 9.5-13.5 [facility] Comment on above: Performed By: #### C BC #### [facility] [address] [place] [address] Dr. Melina Villatoro PLT 216 103/ul Normal 150-450 [facility] Comment on above: Performed By: #### C BC #### [facility] [address] [place] [address] Dr. Melina Villatoro RBC 4.30 106/ul Normal 4.20-5.40 [facility] Comment on above: Performed By: #### C BC #### [facility] [address] [place] [address] Dr. Melina Villatoro WBC 5.4 103/ul Normal 4.0-11.0 [facility] Comment on above: Performed By: #### C BC #### [facility] [address] [place] [address] Dr. Melina Villatoro CULTURE URINEon 04-17-2022 CULTURE URINE Culture Observations: LIGHT GROWTH OF MIXED GENITAL ELDA. NO POTENTIAL PATHOGENS SEEN. Normal [facility] Comment on above: Performed By: #### U RCX #### [facility] [address] [place] [address] Dr. Melina Villatoro GLYCOHEMOGLOBIN A1Con 2021 ADA RECOMMENDATION SEE BELOW Normal [facility] Comment on above: Result Comment: ADA RECOMMENDED LIMIT 4.0 - 6.0 ADA THERAPEUTIC TARGET < 7.0 ACTION SUGGESTED > 7.0 Performed By: #### A 1C #### [facility] [address] [place] [address] Dr. Melina Villatoro Glucose [Mass/Vol] 103 mg/dL Normal [facility] Comment on above: Performed By: #### A 1C #### [facility] [address] [place] [address] Dr. Melina Villatoro HbA1c (Bld) [Mass fraction] 5.2 % Normal 4.5-6.2 [facility] Comment on above: Performed By: #### A 1C #### [facility] [address] [place] [address] Dr. Melina Villatoro PROF 14(COMP METB)on 022 Albumin [Mass/Vol] 4.0 g/dL Normal 3.4-5.0 [facility] Comment on above: Performed By: #### U RCX #### [facility] [address] [address] [address] Melina Villatoro Albumin/Globulin [Mass ratio] 1.1 {ratio} Normal [facility] Comment on above: Performed By: #### U RCX #### [facility] [address] [address] [address] Melina Villatoro ALP [Catalytic activity/Vol] 33 U/L Critically low 46-116 [facility] Comment on above: Performed By: #### U RCX #### [facility] [address] [place] [address] Dr. Melina Villatoro ALT [Catalytic activity/Vol] 31 U/L Normal 14-59 [facility] Comment on above: Performed By: #### U RCX #### [facility] [address] [place] [address] Dr. Melina Villatoro Anion gap [Moles/Vol] 9.4 mmol/L Normal [facility] Comment on above: Performed By: #### U RCX #### [facility] [address] [place] [address] Dr. Melina Villatoro AST [Catalytic activity/Vol] 26 U/L Normal 15-37 [facility] Comment on above: Performed By: #### U RCX #### [facility] [address] [place] [address] Dr. Melina Villatoro Bilirubin [Mass/Vol] 0.4 mg/dL Normal 0.2-1.0 [facility] Comment on above: Performed By: #### U RCX #### [facility] [address] [place] [address] Dr. Melina Villatoro Calcium [Mass/Vol] 9.9 mg/dL Normal 8.5-10.1 [facility] Comment on above: Performed By: #### U RCX #### [facility] [address] [place] [address] Dr. Melina Villatoro Chloride [Moles/Vol] 102 mmol/L Normal 98-107 [facility] Comment on above: Performed By: #### U RCX #### [facility] [address] [address] [address] Melina Villatoro CO2 [Moles/Vol] 30.8 mmol/L Normal 21.0-32.0 [facility] Comment on above: Performed By: #### U RCX #### [facility] [address] [address] [address] Melina Villatoro Creatinine [Mass/Vol] 0.98 mg/dL Normal 0.55-1.02 [facility] Comment on above: Performed By: #### U RCX #### [facility] [address] [address] [address] Melina Villatoro EGFR-AF ALBANIAN >60 Normal >=60 [facility] Comment on above: Performed By: #### U RCX #### [facility] [address] [address] [address] Melina Villatoro EGFR-NON AF ALBANIAN 57 mL/min/1.73m2 Critically low >=60 [facility] Comment on above: Performed By: #### U RCX #### [facility] [address] [address] [address] Melina Villatoro Globulin (S) [Mass/Vol] 3.5 g/dL Normal [facility] Comment on above: Performed By: #### U RCX #### [facility] [address] [place] [address] Dr. Melina Villatoro Glucose [Mass/Vol] 111 mg/dL Critically high 74-106 [facility] Comment on above: Performed By: #### U RCX #### [facility] [address] [address] [address] Melina Villatoro Potassium [Moles/Vol] 4.2 mmol/L Normal 3.5-5.1 [facility] Comment on above: Performed By: #### U RCX #### [facility] [address] [address] [address] Melina Villatoro Protein [Mass/Vol] 7.5 g/dL Normal 6.4-8.2 [facility] Comment on above: Performed By: #### U RCX #### [facility] [address] [address] [address] Melina Villatoro Sodium [Moles/Vol] 138 mmol/L Normal 136-145 [facility] Comment on above: Performed By: #### U RCX #### [facility] [address] [place] [address] Dr. Melina Villatoro Urea nitrogen [Mass/Vol] 16.0 mg/dL Normal 7.0-18.0 [facility] Comment on above: Performed By: #### U RCX #### [facility] [address] [place] [address] Dr. Melina Villatoro Urea nitrogen/Creatinine [Mass ratio] 16.3 mg/mg Normal [facility] Comment on above: Performed By: #### U RCX #### [facility] [address] [place] [address] Dr. Melina Villatoro UA RANDOM W/MICROSCOPICon BACTERIA TRACE Abnormal NONE SEEN [facility] Comment on above: Performed By: #### U AMIC #### [facility] [address] [place] [address] Dr. Melina Villatoro Bilirubin Ql (U) Negative Normal NEGATIVE [facility] Comment on above: Performed By: #### U AMIC #### [facility] [address] [place] [address] Dr. Melina Villatoro CAST NONE SEEN Normal NONE SEEN [facility] Comment on above: Performed By: #### U AMIC #### [facility] [address] [place] [address] Dr. Melina Villatoro Clarity (U) CLEAR Normal CLEAR [facility] Comment on above: Performed By: #### U AMIC #### [facility] [address] [place] [address] Dr. Melina Villatoro Color (U) YELLOW Normal YELLOW [facility] Comment on above: Performed By: #### U AMIC #### [facility] [address] [place] [address] Dr. Melina Villatoro Crystals LM Nom (Urine sed) NONE SEEN Normal NONE SEEN [facility] Comment on above: Performed By: #### U AMIC #### [facility] [address] [address] [address] Melina Villatoro Epithelial cells LM Ql (Urine sed) FEW Abnormal NONE SEEN /RARE [facility] Comment on above: Performed By: #### U AMIC #### [facility] [address] [place] [address] Dr. Melina Villatoro Glucose Ql (U) Negative Normal NEGATIVE [facility] Comment on above: Performed By: #### U AMIC #### [facility] [address] [place] [address] Dr. Melina Villatoro Hemoglobin Ql (U) Negative Normal NEGATIVE [facility] Comment on above: Performed By: #### U AMIC #### [facility] [address] [place] [address] Dr. Melina Villatoro Ketones Ql (U) Negative Normal NEGATIVE [facility] Comment on above: Performed By: #### U AMIC #### [facility] [address] [place] [address] Dr. Melina Villatoro LEUKOCYTES SMALL Abnormal NEGATIVE [facility] Comment on above: Performed By: #### U AMIC #### [facility] [address] [place] [address] Dr. Melina Villatoro MUCOUS NONE SEEN Normal NONE SEEN [facility] Comment on above: Performed By: #### U AMIC #### [facility] [address] [place] [address] Dr. Melina Villatoro Nitrite Ql (U) Negative Normal NEGATIVE [facility] Comment on above: Performed By: #### U AMIC #### [facility] [address] [place] [address] Dr. Melina Villatoro pH (U) 6.0 [pH] Normal 5-9 [facility] Comment on above: Performed By: #### U AMIC #### [facility] [address] [place] [address] Dr. Melina Villatoro RBC NONE SEEN Abnormal 0-2 [facility] Comment on above: Performed By: #### U AMIC #### [facility] [address] [place] [address] Dr. Melina Villatoro SPEC GRAVITY 1.020 Normal 1.005-<=1.[address] [facility] Comment on above: Performed By: #### U AMIC #### [facility] [address] [address] [address] Melina Villatoro UA PROTEIN Negative Normal NEGATIVE/ TRACE [facility] Comment on above: Performed By: #### U AMIC #### [facility] [address] [address] [address] Melina Villatoro Urobilinogen Qn (U) 0.2 {Brooke'U}/dL Normal 0.2 - 1. 0 [facility] Comment on above: Performed By: #### U AMIC #### [facility] [address] [address] [address] Melina Villatoro WBC 2-5 Abnormal NONE SEEN [facility] Comment on above: Performed By: #### U AMIC #### [facility] [address] [address] [address] Melina Villatoro HEMOGLOBINon 01-04-2022 Hemoglobin (Bld) [Mass/Vol] 12.6 g/dL Normal 12.0-16.0 [facility] Comment on above: Performed By: #### H GB #### [facility] [address] [place] [address] Dr. Melina Villatoro COVID-19 Antigenon 1 COVID-19 Antigen Healthcare Worker?: N Krystin Reference Krystin Reference Negative SARS-CoV+SARS-CoV-2 (COVID-19) Ag [Presence] in Respiratory specimen by Rapid immunoassay Negative for SARS Antigen by PARKER COVID19 Blank Space Krystin Disclaimer Negative results, from patients with symptom Krystin Disclaimer onset beyond five days, should be treated as Krystin Disclaimer presumptive and confirmation with a molecular Krystin Disclaimer assay, if necessary, for patient management, Krystin Disclaimer may be performed. Negative results do not rule Krystin Disclaimer out COVID-19 and should not be used as the sole Krystin Disclaimer basis for treatment or patient management Krystin Disclaimer decisions, including infection control decisions. Krystin Disclaimer Negative results should be considered in the Krystin Disclaimer context of a patient's recent exposures, history Krystin Disclaimer and the presence of clinical signs and symptoms Krystin Disclaimer consistent with COVID-19. COVID19 Blank Space Krystin Disclaimer The Krystin SARS Antigen PARKER does not differentiate Krystin Disclaimer between SARS-CoV and SARS-CoV-2. COVID19 Blank Space Krystin Disclaimer This test was developed and its performance Krystin Disclaimer characteristic determined by [facility] and Krystin Disclaimer validated at [facility]. This Krystin Disclaimer test has not been FDA cleared or approved. This Krystin Disclaimer test has been authorized by FDA under an Emergency Use Krystin Disclaimer Authorization (EUA). This test has been validated Krystin Disclaimer in accordance with the FDA's Guidance Document (Policy Krystin Disclaimer for Diagnostics Testing in Laboratories Certified to Krystin Disclaimer Perform High Complexity Testing under CLIA prior to Krystin Disclaimer Emergency Use Authorization for Coronavirus Krystin Disclaimer isease-2019 during the Public Health Emergency) Krystin Disclaimer issued on December 24, 2019. This test is only authorized Krystin Disclaimer for the duration of time the declaration that Krystin Disclaimer circumstances exist justifying the authorization of Krystin Disclaimer the emergency use of in vitro diagnostic tests for Krystin Disclaimer detection of SARS-CoV-2 virus and/or diagnosis of Krystin Disclaimer COVID-19 infection under section 564(b)(1) of the Krystin Disclaimer Act, 21 U.S.C. 360bbb-3(b)(1), unless the Krystin Disclaimer authorization is terminated or revoked sooner. PERFORMED BY: [place] [address] PATHOLOGIST OFFICE CORRESPONDENT TODD RUBIO M.D. Normal [facility] Comment on above: Performed By: #### S OFJANELL COVID-19 KRYSTIN #### [address] Krystin Ag Negativeon 07-14-20 21 Krystin Ag Negative Negative Normal Negative [facility] Comment on above: Result Comment: This is a duplicate Krystin SARS Antigen (PARKER) result to be used for statistical tracking purpose only. PERFORMED BY: [place] [address] PATHOLOGIST OFFICE CORRESPONDENT TODD RUBIO M.D. Performed By: #### S NGUYEN COVID-19 KRYSTIN #### [address] MAGR Preoperative Recordon 1 MAGR Preoperative Record MAGR Pre-Op Record Summary Primary Physician: Kyle Vasquez DO Finalized Date/Time: 06/28/20 10:40:27 Pt. Name: ABIODUNJULIANNE/Sex: 1955 FEMALE Med Rec #: [id number] Physician: Kyle Vasquez DO Financial #: [id number] Pt. Type: I Room/Bed: [facility] Admit/Disch: 06/13/20 05:52:00 - 06/14/20 12:50:00 Institution: Pre-Op Case Times MAGR Pre-Care Text: Patient will be optimally prepared for surgery. Patient is free from s/s of injury. Provide information to patient/family related to plan of care. Verify patient allergies. Confirm identity and verify consent before the operative or invasive procedure. Entry 1 Patient Arrival Time 06/13/20 06:00:00 Preop Departure 06/13/20 07:30:00 Last Modified By: Angélica Hatfield RN 06/28/20 10:40:19 Post-Care Text: Patient is prepared mentally and physically and is ready for surgery. The patient remains free from s/s of injury. Patient/family express understanding of plan of care and participate in decisions affecting his or her perioperrative plan of care. Allergies documented appropriately. Patient identifiers and consent correct. General Comments: Pt arrives to [facility] ambulatory. Pt denies pain, cp, sob,c ough or flu radames symptoms. Pt denies pacemaker/defibillat or or sleep apnea. Pt has sleep apnea and wears a cpap. Finalized By: Angélica Hatfield RN Document Signatures Signed By: Angélica Hatfield RN 06/28/20 09:24 Angélica Hatfield RN 06/28/20 10:40 Unfinalized History Date/Time Username Reason for Unfinalizing Freetext Reason for Unfinalizing 06/28/20 10:40 MHLDRAPER Correct Documentation [facility] Coding Summaryon 06-23-2020 Coding Summary CODING DATE: 06/23/2020 [facility] STATUS: Home PAYOR: Medicare ADMIT DX: REASON FOR VISIT DX: Z01.812 Encounter for preprocedural laboratory examination FINAL DX: PRINCIPAL: Z01.812 Encounter for preprocedural laboratory examination SECONDARY: M17.12 Unilateral primary osteoarthritis, left knee PYMT PROC APC STAT DESCRIPTION DOCTOR NAME DATE NOTE: The code number assigned matches the documented diagnosis and / or procedure in the patient's chart. However, the narrative phrase printed from the coding software may appear abbreviated, or result in slightly different terminology. Coded By: Iliana Hu Date Saved: 06/23/2020 12:40 pm [facility] Provider Orderson 06-17-2020 Provider Orders [id number] #1.00OTGTIFF [facility] Provider Orders [id number] #1.00OTGTIFF [facility] Coding Summaryon 06-15-2020 Coding Summary CODING DATE: 06/15/2020 [facility] STATUS: Home PAYOR: Medicare Grouper: 470 MS-DRG [employer] HIP AND KNEE JOINT REPLACEMENT OR REATTACHMENT OF LOWER EXTREMITY W/O GROUP HOME Low Trim 0 High Trim 999 ADMIT DX: M17.12 Unilateral primary osteoarthritis, left knee REASON FOR VISIT DX: FINAL DX: PRINCIPAL: M17.12 Y Unilateral primary osteoarthritis, left knee SECONDARY: I10 Y Essential (primary) hypertension K21.9 Y Gastro-esophageal reflux disease without esophagitis E66.01 Y Morbid (severe) obesity due to excess calories G47.33 Y Obstructive sleep apnea (adult) (pediatric) Z99.89 1 Dependence on other enabling machines and devices PROCEDURES DOCTOR NAME DATE Replacement of Left Knee Joint Kyle Vasquez And 06/13/2020 with Synthetic Substitute, Cemented, Open Approach NOTE: The code number assigned matches the documented diagnosis and / or procedure in the patient's chart. However, the narrative phrase printed from the coding software may appear abbreviated, or result in slightly different terminology. Coded By: Alison Rob Date Saved: 06/15/2020 08:49 am [facility] Consent Formson 06-15-2020 Consent Forms [id number] [address] [place] [address] Consent Forms [id number] #[address] [place] [address] Discharge Instructionson Discharge Instructions [id number] #[address] [place] [address] Medication Managementon 05-25 Medication Management [id number] #[address] [place] [address] Outside Recordson 06-15-2020 Outside Records [id number] #[address] [place] [address] Provider Orderson 06-15-2020 Provider Orders [id number] #[address] [place] [address] Telemetry Stripson 0 Telemetry Strips [id number] #[address] [place] [address] .Auto Diff 1on 06-14-2020 Auto [place] % 9 % Normal 1-12 [facility] Comment on above: Performed By: #### 1 [id number], [id number], [id number] #### [facility] (DEFAULT) [address] [place] [address] 01890 Baso Abs# 0.0 x10 Normal 0.0-0.2 [facility] Comment on above: Performed By: #### 1 [id number], [id number], [id number] #### [facility] (DEFAULT) [address] [place] [address] 34283 Basophils/100 WBC (Bld) 0.1 % Low 0.2-2.0 [facility] Comment on above: Performed By: #### 1 [id number], [id number], [id number] #### [facility] (DEFAULT) [address] [place] [address] 71694 Eos Abs# 0.0 x10 Normal 0.0-0.4 [facility] Comment on above: Performed By: #### 1 [id number], [id number], [id number] #### [facility] (DEFAULT) [address] [place] [address] 89934 Eosinophils/100 WBC (Bld) 0.1 % Low 0.9-4.0 [facility] Comment on above: Performed By: #### 1 [id number], [id number], [id number] #### [facility] (DEFAULT) [address] [place] [address] 67464 Lymphocytes (Bld) [#/Vol] 0.9 x10 Low 1.3-2.9 [facility] Comment on above: Performed By: #### 1 [id number], [id number], [id number] #### [facility] (DEFAULT) [address] [place] [address] 44308 Lymphocytes/100 WBC (Bld) 9 % Low 14-48 [facility] Comment on above: Performed By: #### 1 [id number], [id number], [id number] #### [facility] (DEFAULT) [address] [place] [address] 7[address]36 [place] Abs# 0.8 x10 Normal 0.0-0.8 [facility] Comment on above: Performed By: #### 1 [id number], [id number], [id number] #### [facility] (DEFAULT) [address] [place] [address] Neut Abs# 7.8 x10 Normal 1.5-9.2 [facility] Comment on above: Performed By: #### 1 [id number], [id number], [id number] #### [facility] (DEFAULT) [address] [place] [address] Neutrophils/100 WBC (Bld) 82 % Normal 44-88 [facility] Comment on above: Performed By: #### 1 [id number], [id number], [id number] #### [facility] (DEFAULT) [address] [place] [address] CBC w/ Auto Diffon 0 Erythrocyte distribution width (RBC) [Ratio] 14.0 % Normal 11.5-15.0 [facility] Comment on above: Performed By: #### 1 [id number], [id number], [id number] #### [facility] (DEFAULT) [address] [place] [address] Hematocrit (Bld) [Volume fraction] 36.7 % Normal 33.7-40.4 [facility] Comment on above: Performed By: #### 1 [id number], 5759514, [id number] #### [facility] (DEFAULT) [address] [place] [address] Hemoglobin (Bld) [Mass/Vol] 11.5 g/dL Normal 11.3-15.9 [facility] Comment on above: Performed By: #### 1 [id number], 3650239, 65725176 #### [facility] (DEFAULT) [address] [place] [address] Man Diff? Auto Normal [facility] Comment on above: Performed By: #### 1 [id number], [id number], [id number] #### [facility] (DEFAULT) [address] [place] [address] MCH (RBC) [Entitic mass] 31 pg Normal 24-34 [facility] Comment on above: Performed By: #### 1 [id number], [id number], [id number] #### [facility] (DEFAULT) [address] [place] [address] 01281 MCHC (RBC) [Mass/Vol] 31 g/dL Normal 26-37 [facility] Comment on above: Performed By: #### 1 [id number], 9609384, [id number] #### [facility] (DEFAULT) [address] [place] [address] 24454 MCV (RBC) [Entitic vol] 99 fL Normal 81-100 [facility] Comment on above: Performed By: #### 1 [id number], [id number], [id number] #### [facility] (DEFAULT) [address] [place] [address] 45889 Platelet mean volume (Bld) [Entitic vol] 8.5 fL Normal 6.3-10.2 [facility] Comment on above: Performed By: #### 1 [id number], 4342137, [id number] #### [facility] (DEFAULT) [address] [place] [address] 34990 Platelets (Bld) [#/Vol] 237 x10 Normal 138-427 [facility] Comment on above: Performed By: #### 1 [id number], [id number], [id number] #### [facility] (DEFAULT) [address] [place] [address] 91009 RBC (Bld) [#/Vol] 3.70 x10 Normal 3.70-5.30 [facility] Comment on above: Performed By: #### 1 [id number], 6098033, [id number] #### [facility] (DEFAULT) [address] [place] [address] 63908 WBC (Bld) [#/Vol] 9.6 x10 [facility] Comment on above: Performed By: #### 1 [id number], [id number], [id number] #### [facility] (DEFAULT) [address] [place] [address] Consultation/Specialist Note on 06-14-2020 Consultation/Specia list Note Patient: JULIANNE PBAON Age: 64 years Sex: FEMALE : 1955 Associated Diagnoses: None Author: ROMERO ORDONEZ Basic Information 1 day s/p LT TKA (DOS 06/13/2020) doing well, Subjective pt doing well, denies chest pain, shortness of breath, eating/drinking well, denies nausea, very happy with her progress and looking forward to going home today possibly, had BM 06/13/2020 Health Status Allergies: Allergic Reactions (All) Severity Not Documented Cipro- Vomiting. Codeine- Headache. Morphine- Hives. Tape- No reactions were documented. Objective VS/Measurements Vital Signs 06/14/2020 7:40 EDT Temperature Oral 36.4 DegC Temperature Oral (DegF) 97.52 DegF Peripheral Pulse Rate 69 bpm Respiratory Rate 18 br/min Systolic Blood Pressure 135 mmHg Diastolic Blood Pressure 79 mmHg Mean Arterial Pressure, Cuff 98 mmHg BP Site Right arm Patient Position BP Sitting SpO2 96 % dorsalis pedis and posterior tibialis pulses intact, EPC cuff intact, dressing Clean dry and intact, negative homans sign, kryo cuff on, up to chair Impression and Plan Course: Progressing as expected. continue to monitor pain control, d/c planning home pending up with P.T. and pain well managed, activities as tolerated, up to chair with meals [Electronically Signed on: 06/14/2020 07:58 EDT] ROMERO ORDONEZ [Verified on: 06/14/2020 07:58 EDT] ROMERO ORDONEZ [facility] Education Noteon 06-14-2020 Education Note Education Materials Knee Rehabilitation in the Home After knee surgery, it is important to follow instructions from your health care provider about rehabilitation (rehab). It is important to design a program that is safe and effective for you. Your health care provider and rehabilitation therapist will work with you to meet your specific abilities and needs. What are the benefits? Knee rehab can help to: ? Strengthen your knee. ? Improve the flexibility and movement (range of motion) of your knee joint. ? Reduce swelling. ? Improve blood flow and prevent blood clots. How to do exercises at home ? Continue exercises at home that your health care provider or physical therapist instructed you to do in the hospital. ? Before you exercise: ? Take pain medicines, if told by your health care provider. Do not take the medicine if it makes you feel dizzy or sleepy. ? Do a warm-up activity, such as gentle walking or riding a stationary bike, as told by your health care provider. Doing that warms up your muscles and helps to prevent injury. ? While doing exercises: ? When standing, make sure you are near something sturdy that you can hold onto for balance, such as a heavy chair or the wall. ? Do exercises exactly as told by your health care provider and adjust them as directed. ? As you are recovering, choose an exercise pace that is comfortable for you, and gradually work up to your goal. ? Do not force your knee to bend. ? Do not exercise in a pool (aquatic therapy) until your incision is healed and your health care provider says that you can. Follow these instructions at home: Activity ? Do not use your knee to support (bear) your body weight until your health care provider says that you can. Follow weight-bearing restrictions as told. Use crutches or a walker as told by your health care provider. ? Do not twist or kneel on your injured knee. ? Ask your health care provider what activities are safe for you during recovery, and ask what activities you need to avoid. ? Avoid sitting for a long time without moving. Get up to take short walks every 1?2 hours. Ask for help if you feel weak or unsteady. Managing pain, stiffness, and swelling ? Put ice on affected areas after you exercise, or as needed. Icing can help to relieve joint pain and swelling. ? Put ice in a plastic bag or use the icing device (cold flow pad or cold therapy unit) that you were given. Follow instructions from your health care provider about how to use the icing device. ? Place a towel between your skin and the bag or device. ? Leave the ice on for 20 minutes, 2?3 times a day. ? If directed, apply heat to affected areas before you exercise, or as needed. Heat can reduce the stiffness of your muscles and joints. Use the heat source that your health care provider recommends, such as a moist heat pack or a heating pad. ? Place a towel between your skin and the heat source. ? Leave the heat on for 20?30 minutes. ? Remove the heat if your skin turns bright red. This is especially important if you are unable to feel pain, heat, or cold. You may have a greater risk of getting burned. ? Wear compression stockings as told by your health care provider. These stockings help to prevent blood clots and reduce swelling in your legs. ? Raise (elevate) your legs while sitting or lying down. Do not place your knee on top of pillows to elevate it. Keep your legs straight to prevent your knee from getting stuck in a bent position (contracture). Preventing falls ? Keep your home well-lit and clutter-free, especially in walkways and stairways. Keep floors dry and use non-skid mats. ? Remove tripping hazards from floors, such as throw rugs and cords. ? Install grab bars in bathrooms, and put night-lights in your bedroom and bathroom. ? Wear closed-toe shoes that fit well and support your feet. Wear shoes that have rubber soles or low heels. ? Talk with your health care provider about the dqyh-eox-wcvvujj and prescription medicines that you are taking. Some medicines can cause dizziness or changes in blood pressure, which increase your risk of falling. General recommendations ? Teach your family about your condition and how they can participate in your recovery. Include them during a physical therapy session. ? Keep all follow-up visits as told by your health care provider and physical therapist. This is important. Questions to ask your health care provider ? What exercises are safe for me to do? ? How often should I do the exercises? ? How can I manage the pain during exercise? ? What other activities are safe for me to do? Contact a health care provider if: ? You have questions about how to do exercises correctly. ? You have increased difficulty bending your knee. ? You have knee pain that does not go away after you rest and take pain medicines. ? Your prosthesis feels loose. ? You are not able to do exercises. Get help right away if: ? You fall. ? Your incision from surgery breaks open. Summary ? Knee rehab can help to strengthen your knee and improve the flexibility and movement (range of motion) of your knee joint. ? Continue exercises at home that your health care provider or physical therapist instructed you to do in the hospital. ? Call your health care provider if you have questions about how to do exercises correctly. This information is not intended to replace advice given to you by your health care provider. Make sure you discuss any questions you have with your health care provider. Document Released: 09/09/2006 Document Revised: 08/22/2018 Document Reviewed: 08/04/2018 [employer] Patient Education ? 2019 [employer] Normal [facility] Electrolyte Panel Standardon 06-14-2020 Anion gap [Moles/Vol] 14.0 mmol/L Normal 5.0-19.0 [facility] Comment on above: Performed By: #### 1 [id number], [id number], [id number] #### [facility] (DEFAULT) [address] [place] [address] 16921 Chloride [Moles/Vol] 103 mmol/L Normal 101-111 [facility] Comment on above: Performed By: #### 1 [id number], [id number], [id number] #### [facility] (DEFAULT) [address] [place] [address] 36809 CO2 [Moles/Vol] 29 mmol/L Normal 21-32 [facility] Comment on above: Performed By: #### 1 [id number], [id number], [id number] #### [facility] (DEFAULT) [address] [place] [address] 91096 Potassium [Moles/Vol] 4.6 mmol/L Normal 3.6-5.1 [facility] Comment on above: Performed By: #### 1 [id number], [id number], [id number] #### [facility] (DEFAULT) [address] [place] [address] 80794 Sodium [Moles/Vol] 141.0 mmol/L Normal 136.0-144.0 [facility] Comment on above: Performed By: #### 1 [id number], [id number], [id number] #### [facility] (DEFAULT) [address] [place] [address] 71907 Inpatient Patient Summaryon 06-14-2020 Inpatient Patient Summary [facility] [address] [place] [address] Patient Discharge Instructions Name: JULIANNE PABON : 1955 Patient Address: [address] [place] [id number] Primary Care Provider: Name: Clinton YBARRA, Bashir Wright After you are discharged if you find you have any questions, please, call [phone] ext [phone] to speak to a nurse. Discharge Diagnosis: Primary osteoarthritis of left knee Prescription Information: If you have been given a prescription for narcotics, seek immediate medical attention if you have any difficulty breathing or any sudden status changes such as confusion and sleepiness. If you or anyone you know is experiencing suicidal thoughts, mental health, alcohol and/or drug addiction problems; contact the [facility] 15/04 Crisis Hotline -text 4hope to 741741. If you received any narcotics, sedation, or any other medication that causes drowsiness for the next 24 hours, unless otherwise directed: ? Do not drive a car. ? Do not operate machinery such as power tools, lawn mowers, drills, sewing machines, or stoves ? Avoid alcoholic beverages and drugs for allergies, nerves, or sleep ? Do not make important personal or business decisions or sign any legal documents [facility] would like to thank you for allowing us to assist you with your healthcare needs. The following includes patient education materials and information regarding your injury/illness. JULIANNE PABON has been given the following list of follow-up instructions, prescriptions, and patient education materials: Follow-up Instructions With: Address: When: Kyle Vasquez [address], [address] [place] [address] Business (2) 06/23/2020 11:00 AM Comments: Do not take [place] while taking Percocet With: Address: When: Bashir Alonzo [address], [place] [address] Business (2) Medications During the course of your visit, your medication list was updated with the most current information. The details of those changes are reflected below: New Medications Other Medications acetaminophen (acetaminophen 500 mg oral tablet) 2 tab(s) Oral Every 6 hours as needed Pain - Mild. ascorbic acid (Vitamin C 500 mg oral tablet) 1 tab(s) Oral 2 times a day. aspirin (aspirin 325 mg oral tablet) 1 tab(s) Oral every day. bisacodyl (bisacodyl 10 mg rectal suppository) 1 suppository(ies) Per rectum every day as needed constipation. calcium carbonate (calcium (as carbonate) 500 mg oral tablet) Oral 2 times a day. cholecalciferol (Vitamin D3 2000 intl units oral tablet) 1 tab(s) Oral every day. docusate (Colace 100 mg oral capsule) 1 cap(s) Oral 2 times a day. pregabalin (pregabalin 75 mg oral capsule) 1 cap(s) Oral 2 times a day. Medications That Were Updated - Follow Below Instructions Other Medications Updated: ferrous sulfate (ferrous sulfate 325 mg (65 mg elemental iron) oral delayed release tablet) 1 tab(s) Oral every day. Updated: ferrous sulfate (ferrous sulfate 325 mg (65 mg elemental iron) oral tablet) 1 tab(s) Oral 2 times a day. Updated: hydrOXYzine (hydrOXYzine hydrochloride 10 mg oral tablet) 1 tab(s) Oral 2 times a day as needed for anxiety. Updated: multivitamin (Multiple Vitamins oral tablet) Oral every day. Updated: multivitamin (Multivitamin, generic) 1 tab(s) Oral every day. Medications to Continue That Have Not Changed Other Medications acetaminophen-oxycod one (Percocet 5/325 oral tablet) 1 tab(s) Oral every 6 hours as needed for pain. albuterol (Albuterol (Eqv-Proventil HFA) 90 mcg/inh inhalation aerosol) 2 puff(s) Inhalation 3 times a day as needed shortness of breath or wheezing. calcium-vitamin D (Os-Vicky Calcium+D3) 1 tab(s) Oral every day. celecoxib (celecoxib 100 mg oral capsule) 1 cap(s) Oral 2 times a day. DULoxetine (DULoxetine 60 mg oral delayed release capsule) 1 cap(s) Oral 2 times a day. (do not crush or chew). glucosamine 1 tab(s) Oral every day. losartan (losartan 100 mg oral tablet) 1 tab(s) Oral every day. pantoprazole (pantoprazole 40 mg oral delayed release tablet) 1 tab(s) Oral every day. traZODone (traZODone 150 mg oral tablet) 0.5 tab(s) Oral At bedtime. No Longer Take the Following Medications acetaminophen-hydroc odone ([place] 5 mg-325 mg oral tablet) 1 tab(s) Oral Every 6 hours as needed for pain. It is important to always keep an active list of medications available so that you can share with other providers and manage your medications appropriately. As an additional courtesy, we are also providing you with your final active medications list that you can keep with you. acetaminophen (acetaminophen 500 mg oral tablet) 2 tab(s) Oral Every 6 hours as needed Pain - Mild. acetaminophen-oxycod one (Percocet 5/325 oral tablet) 1 tab(s) Oral every 6 hours as needed for pain. albuterol (Albuterol (Eqv-Proventil HFA) 90 mcg/inh inhalation aerosol) 2 puff(s) Inhalation 3 times a day as needed shortness of breath or wheezing. ascorbic acid (Vitamin C 500 mg oral tablet) 1 tab(s) Oral 2 times a day. aspirin (aspirin 325 mg oral tablet) 1 tab(s) Oral every day. bisacodyl (bisacodyl 10 mg rectal suppository) 1 suppository(ies) Per rectum every day as needed constipation. calcium carbonate (calcium (as carbonate) 500 mg oral tablet) Oral 2 times a day. calcium-vitamin D (Os-Vicky Calcium+D3) 1 tab(s) Oral every day. celecoxib (celecoxib 100 mg oral capsule) 1 cap(s) Oral 2 times a day. cholecalciferol (Vitamin D3 2000 intl units oral tablet) 1 tab(s) Oral every day. docusate (Colace 100 mg oral capsule) 1 cap(s) Oral 2 times a day. DULoxetine (DULoxetine 60 mg oral delayed release capsule) 1 cap(s) Oral 2 times a day. (do not crush or chew). ferrous sulfate (ferrous sulfate 325 mg (65 mg elemental iron) oral delayed release tablet) 1 tab(s) Oral every day. ferrous sulfate (ferrous sulfate 325 mg (65 mg elemental iron) oral tablet) 1 tab(s) Oral 2 times a day. glucosamine 1 tab(s) Oral every day. hydrOXYzine (hydrOXYzine hydrochloride 10 mg oral tablet) 1 tab(s) Oral 2 times a day as needed for anxiety. losartan (losartan 100 mg oral tablet) 1 tab(s) Oral every day. multivitamin (Multiple Vitamins oral tablet) Oral every day. multivitamin (Multivitamin, generic) 1 tab(s) Oral every day. pantoprazole (pantoprazole 40 mg oral delayed release tablet) 1 tab(s) Oral every day. pregabalin (pregabalin 75 mg oral capsule) 1 cap(s) Oral 2 times a day. traZODone (traZODone 150 mg oral tablet) 0.5 tab(s) Oral At bedtime. Take only the medications listed above. Contact your doctor prior to taking any medications not on this list. Medication leaflets, if any, will display below Diet & Activity Patient Activity Level: As Tolerated Patient Diet: Patient Activity Restrictions: Patient education materials, if any, will display below Knee Rehabilitation in the Home After knee surgery, it is important to follow instructions from your health care provider about rehabilitation (rehab). It is important to design a program that is safe and effective for you. Your health care provider and rehabilitation therapist will work with you to meet your specific abilities and needs. What are the benefits? Knee rehab can help to: ? Strengthen your knee. ? Improve the flexibility and movement (range of motion) of your knee joint. ? Reduce swelling. ? Improve blood flow and prevent blood clots. How to do exercises at home ? Continue exercises at home that your health care provider or physical therapist instructed you to do in the hospital. ? Before you exercise: ? Take pain medicines, if told by your health care provider. Do not take the medicine if it makes you feel dizzy or sleepy. ? Do a warm-up activity, such as gentle walking or riding a stationary bike, as told by your health care provider. Doing that warms up your muscles and helps to prevent injury. ? While doing exercises: ? When standing, make sure you are near something sturdy that you can hold onto for balance, such as a heavy chair or the wall. ? Do exercises exactly as told by your health care provider and adjust them as directed. ? As you are recovering, choose an exercise pace that is comfortable for you, and gradually work up to your goal. ? Do not force your knee to bend. ? Do not exercise in a pool (aquatic therapy) until your incision is healed and your health care provider says that you can. Follow these instructions at home: Activity ? Do not use your knee to support (bear) your body weight until your health care provider says that you can. Follow weight-bearing restrictions as told. Use crutches or a walker as told by your health care provider. ? Do not twist or kneel on your injured knee. ? Ask your health care provider what activities are safe for you during recovery, and ask what activities you need to avoid. ? Avoid sitting for a long time without moving. Get up to take short walks every 1?2 hours. Ask for help if you feel weak or unsteady. Managing pain, stiffness, and swelling ? Put ice on affected areas after you exercise, or as needed. Icing can help to relieve joint pain and swelling. ? Put ice in a plastic bag or use the icing device (cold flow pad or cold therapy unit) that you were given. Follow instructions from your health care provider about how to use the icing device. ? Place a towel between your skin and the bag or device. ? Leave the ice on for 20 minutes, 2?3 times a day. ? If directed, apply heat to affected areas before you exercise, or as needed. Heat can reduce the stiffness of your muscles and joints. Use the heat source that your health care provider recommends, such as a moist heat pack or a heating pad. ? Place a towel between your skin and the heat source. ? Leave the heat on for 20?30 minutes. ? Remove the heat if your skin turns bright red. This is especially important if you are unable to feel pain, heat, or cold. You may have a greater risk of getting burned. ? Wear compression stockings as told by your health care provider. These stockings help to prevent blood clots and reduce swelling in your legs. ? Raise (elevate) your legs while sitting or lying down. Do not place your knee on top of pillows to elevate it. Keep your legs straight to prevent your knee from getting stuck in a bent position (contracture). Preventing falls ? Keep your home well-lit and clutter-free, especially in walkways and stairways. Keep floors dry and use non-skid mats. ? Remove tripping hazards from floors, such as throw rugs and cords. ? Install grab bars in bathrooms, and put night-lights in your bedroom and bathroom. ? Wear closed-toe shoes that fit well and support your feet. Wear shoes that have rubber soles or low heels. ? Talk with your health care provider about the gpfk-qjy-xgzlvrx and prescription medicines that you are taking. Some medicines can cause dizziness or changes in blood pressure, which increase your risk of falling. General recommendations ? Teach your family about your condition and how they can participate in your recovery. Include them during a physical therapy session. ? Keep all follow-up visits as told by your health care provider and physical therapist. This is important. Questions to ask your health care provider ? What exercises are safe for me to do? ? How often should I do the exercises? ? How can I manage the pain during exercise? ? What other activities are safe for me to do? Contact a health care provider if: ? You have questions about how to do exercises correctly. ? You have increased difficulty bending your knee. ? You have knee pain that does not go away after you rest and take pain medicines. ? Your prosthesis feels loose. ? You are not able to do exercises. Get help right away if: ? You fall. ? Your incision from surgery breaks open. Summary ? Knee rehab can help to strengthen your knee and improve the flexibility and movement (range of motion) of your knee joint. ? Continue exercises at home that your health care provider or physical therapist instructed you to do in the hospital. ? Call your health care provider if you have questions about how to do exercises correctly. This information is not intended to replace advice given to you by your health care provider. Make sure you discuss any questions you have with your health care provider. Document Released: 09/09/2006 Document Revised: 08/22/2018 Document Reviewed: 08/04/2018 [employer] Patient Education ? 2020 [employer] Viruses or Bacteria What?s got you sick? Antibiotics only treat bacterial infections. Viral illnesses cannot be treated with antibiotics. When an antibiotic is not prescribed, ask your healthcare professional for tips on how to relieve symptoms and feel better. Usual Cause Illness Viruses Bacteria Antibiotic Needed Cold/Runny Nose NO Bronchitis/Chest Cold (in otherwise healthy children and adults) NO Whooping Cough Yes Flu NO Strep Throat Yes Sore Throat (except strep) NO Fluid in the middle ear (otitis media with effusion) NO Urinary Tract Infection Yes Antibiotics Aren?t Always the Answer www.cdc.gov/getsmart GET SMART Know When Antibiotics Work [place] Department of Health and Human Services Centers for Disease Control and Prevention May 2014 [facility] Anesthesia Noteon 06-13-2020 Anesthesia Note Patient: JULIANNE PABON Age: 64 years Sex: FEMALE : 1955 Associated Diagnoses: None Author: Jakob Casey MD Preoperative Information Anesthesia history: Patient history: No difficult intubation, No malignant hyperthermia. Family history: No malignant hyperthermia. Review of Systems Constitutional: Negative. Respiratory: Negative, No shortness of breath. Cardiovascular: Negative, No chest pain. Gastrointestinal: No heartburn. Health Status Allergies: Allergic Reactions (All) Severity Not Documented Cipro- Vomiting. Codeine- Headache. Morphine- Hives. Tape- No reactions were documented. Current medications: Home Medications (12) Active Albuterol (Eqv-Proventil HFA) 90 mcg/inh inhalation aerosol 2 puff(s), PRN, INH, TID celecoxib 100 mg oral capsule 100 mg = 1 cap(s), PO, BID DULoxetine 60 mg oral delayed release capsule 60 mg = 1 cap(s), PO, BID ferrous sulfate 325 mg (65 mg elemental iron) oral delayed release tablet 325 mg = 1 tab(s), PO, Daily glucosamine 1 tab(s), PO, Daily hydrOXYzine hydrochloride 10 mg oral tablet 20 mg = 2 tab(s), PRN, PO, TID losartan 100 mg oral tablet 100 mg = 1 tab(s), PO, Daily Multivitamin, generic 1 tab(s), PO, Daily [place] 5 mg-325 mg oral tablet 1 tab(s), PRN, PO, q6hr Os-Vicky Calcium+D3 1 tab(s), PO, Daily pantoprazole 40 mg oral delayed release tablet 40 mg = 1 tab(s), PO, Daily traZODone 150 mg oral tablet 75 mg = 0.5 tab(s), PO, HS Problem list (past medical history): All Problems GERD (gastroesophageal reflux disease) / SNOMED CT 968812062 / Confirmed Hypertension / SNOMED CT 7648761076 / Confirmed Sleep apnea / SNOMED CT 69255979 / Confirmed Resolved: Diverticulitis / SNOMED CT 727138841 Histories Family History: Diabetes mellitus Grandparent Mother Stroke.... Mother Procedure history: Colectomy ([id number]). Comments: 05/20/2020 11:48 Stephania Brower RN x2 with ostomy and revesral surgery Stomach ([id number]). Comments: 05/20/2020 11:49 Stephania Brower RN infection in stomach had surgery to flush out Umbilical hernia ([id number]). Comments: 05/20/2020 11:49 Stephania Brower RN umbilical hernia x6 Arthroplasty ([id number]). Comments: 05/20/2020 11:51 Stephania Brower RN right knee Tonsillectomy ([id number]). Cholecystectomy ([id number]). Appendectomy (874520236). Social History Electronic Cigarette/Vaping Assessment Electronic Cigarette Use: Never. Alcohol Assessment Comment: occational drink Tobacco Assessment Former smoker, quit more than 30 days ago Tobacco Use:. Substance Abuse Assessment Substance use: Never. . Social & Psychosocial Habits Alcohol Comment: occational drink - 05/20/2020 11:54 - Stephania Quiros RN Substance Abuse 05/20/2020 Substance use: Never Tobacco 05/20/2020 Smoking tobacco use: Former smoker, quit more Electronic Cigarette/Vaping 05/20/2020 Electronic Cigarette Use: Never . Physical Examination VS/Measurements Measurements from flowsheet : Measurements 06/13/2020 6:05 EDT Height 157.480 cm Height/Length Dosing 157.480 cm Weight 119.200 kg Weight Dosing 119.200 kg Body Mass Index 48.060 kg/m2 06/13/2020 6:01 EDT Height/Length Dosing 157.48 cm Weight 118.4 kg Weight Measured (lbs) 260.48 lb , Vital Signs (last 24 hrs) Last Charted Heart Rate Peripheral 79 bpm (JUN 13 06:05) Resp Rate 18 br/min (JUN 13 06:05) SBP 123 mmHg (JUN 13 06:05) DBP 70 mmHg (JUN 13 06:05) SpO2 97 % (JUN 13 06:05) Weight 119.20 kg (JUN 13 06:05) Height 157.48 cm (JUN 13 06:05) Review / Management Laboratory Results Plan Citizen Of The [place] Society of Anesthesiologists#(A SA) physical status classification: Class III. Anesthetic Preoperative Plan Anesthesia: General. , Regional adductor canal block. Anesthetic plan, risks, benefits, and alternatives discussed with the patient and/or family. Patient verbalized understanding. [Electronically Signed on: 06/13/2020 07:13 EDT] Jakob Casey MD [Verified on: 06/13/2020 07:13 EDT] Jakob Casey MD [facility] Consent Formson 06-13-2020 Consent Forms [id number] [facility]-13 History and Physical [id number] [facility] Intraoperative Recordon 06-13-2020 MAGR Intraoperative Record MAGR Intra-Op Record Summary Primary Physician: Kyle Vasquez DO Finalized Date/Time: 06/13/20 11:22:09 Pt. Name: JULIANNE PABON/Sex: 1955 FEMALE Med Rec #: [id number] Physician: Kyle Vasquez DO Financial #: [id number] Pt. Type: I Room/Bed: [facility] Admit/Disch: 06/13/20 05:52:00 - Institution: Case Times MAGR Entry 1 Patient In Room Time 06/13/20 07:34:00 Out Room Time 06/13/20 09:47:00 Anesthesia Start Time 06/13/20 07:34:00 Stop Time 06/13/20 09:47:00 Surgery Start Time 06/13/20 08:01:00 Stop Time 06/13/20 09:40:00 Last Modified By: Stacie Sarmiento RN 06/13/20 11:04:15 Case Attendance MAGR Entry 1 Entry 2 Entry 3 Case Attendee Kyle Vasquez John M MD Sauer, Stephanie RN Andrew DO Role Performed Surgeon - Primary Anesthesiologist of Director Home Record Time In 06/13/20 07:34:00 06/13/20 07:34:00 06/13/20 07:34:00 Time Out 06/13/20 09:47:00 06/13/20 09:47:00 06/13/20 09:47:00 Procedure Arthroplasty Knee Arthroplasty Knee Arthroplasty Knee Total(Left) Total(Left) Total(Left) Last Modified By: Stacie Sarmiento RN, Stephanie RN Sauer, Stephanie RN 06/13/20 11:04:20 06/13/20 11:04:20 06/13/20 11:04:20 Entry 4 Entry 5 Entry 6 Case Attendee Mindy Castro CHRISTIAN COUNSELOR, Malissa Dupree Role Performed Vitreo Retinal Surgeon Vitreo Retinal Surgeon Scrub Personnel Time In 06/13/20 07:34:00 06/13/20 07:34:00 06/13/20 07:34:00 Time Out 06/13/20 09:47:00 06/13/20 09:47:00 06/13/20 09:47:00 Procedure Arthroplasty Knee Arthroplasty Knee Arthroplasty Knee Total(Left) Total(Left) Total(Left) Last Modified By: Stacie Sarmiento RN, Stephanie RN Sauer, Stephanie RN 06/13/20 11:04:20 06/13/20 11:04:20 06/13/20 11:04:20 General Comments: Dick Salamanca rep Surgical Procedures MAGR Pre-Care Text: A.20 Verifies operative procedure, surgical site, and laterality Im.150 Develops individualized plan of care Entry 1 Procedure Arthroplasty Knee Total Primary Procedure Yes Primary Surgeon Kyle Vasquez DO Surgeon Comment LEFT TOTAL KNEE Start 06/13/20 08:01:00 Stop 06/13/20 09:40:00 Anesthesia Type General Surgical Service Orthopedics Wound Class Clean Technique Details Closure Technique Primary Entire procedure No was performed via laparoscope or robotic assistance Last Modified By: Stacie Sarmiento RN 06/13/20 11:04:30 Post-Care Text: O.730 The patient's care is consistent with the individualized perioperative plan of care General Case Data MAGR Pre-Care Text: A.350.1 Classifies surgical wound Entry 1 Case Information OR MAGR OR 05 Case Level Level 5 Wound Class Clean Specialty Orthopedics ASA Class 3 Diagnosis Preop Diagnosis DJD LEFT TOTAL KNEE Postop Same As Preop Yes Postop Diagnosis DJD LEFT TOTAL KNEE Blunt or No Is the procedure No penetrating injury considered occured prior to Emergent/Urgent? the start of the procedure: Last Modified By: Stacie Sarmiento RN 06/13/20 08:18:16 Post-Care Text: O.760 Patient receives consistent and comparable care regardless of the setting Time Out MAGR Entry 1 Time out date/time 06/13/20 08:01:00 All team members Yes have introduced themselves by name and role Surgeon, Yes Surgeon reviews Yes anesthesia, nurse critical or confirm patient, unexpected steps, site, procedure operative duration, anticipated blood loss Anesthesia team Yes Nursing team Yes reviews any reviews sterility patient-specific (including concerns indicator results) and equipment issues/concerns Antibiotic Antibiotic Yes Administration Time 07:35 prophylaxis given within the last 60 minutes Is essential Yes imaging displayed? Last Modified By: Stacie Sarmiento RN 06/13/20 08:18:41 Patient Positioning MAGR Pre-Care Text: A.280 Identifies baseline musculoskeletal status Im.40 Positions the patient Im.80 Applies safety devices Entry 1 Procedure Arthroplasty Knee Body Position Supine Total(Left) Left Arm Position Extended on padded arm Right Arm Position Extended on padded arm board board Left Leg Position Held on field Right Leg Position Extended Feet Uncrossed? Yes Press Points Checked Yes Positioning Device Arm Boards, Arm Strap, Outcome Met (O.80) Yes Pillow, Safety Strap, Leg Torre Last Modified By: Stacie Sarmiento RN 06/13/20 08:19:14 Post-Care Text: E.290 Evaluates musculoskeletal status O.80 Patient is free from signs and symptoms of injury related to positioning Skin Prep MAGR Pre-Care Text: A.30 Verifies allergies Im.270 Performs skin preparation Im.270.1 Implements protective measures to prevent skin and tissue injury due to chemical sources Entry 1 Skin Prep Syntegrity Prep Agents (Im.270) Chlorhexidine Gluconate Prep By Stacie Sarmiento RN and Alcohol Prep Area (Im.270) Knee Skin Prep Agent Dry Yes Without Pooling Hair Removal Syntegrity Hair Removal Methods No hair removal performed Outcome Met (O.100) Yes Last Modified By: Stacie Sarmiento RN 06/13/20 08:19:31 Post-Care Text: E.10 Evaluates for signs and symptoms of physical injury to skin and tissue O.100 Patient is free from signs and symptoms of chemical injury Counts Verification MAGR Pre-Care Text: A.20 Verifies operative procedure, surgical site, and laterality A.20.2 Assesses the risk for unintended retained foreign body Im.20 Performs required counts Entry 1 Procedure Arthroplasty Knee Total(Left) Counts Verification Initial Counts Items included in Sponges, Sharps Initial Counts Manual the Initial Count Method Initial Counts Stacie Sarmiento RN, Initial Count Time 06/13/20 07:20:00 Performed By Malissa Calle Counts Verification Final Counts Items Included in Sponges, Sharps Final Count Method Manual Final Count Final Count Status Correct Final Counts Stacie Sarmiento RN, Performed By Malissa Calle Final Count Time 06/13/20 09:21:00 Surgeon notified of Yes final counts status Outcome Met (O.20) Yes Last Modified By: Stacie Sarmiento RN 06/13/20 09:30:05 Post-Care Text: E.50 Evaluates results of the surgical count O.20 Patient is free from unintended retained foreign objects Patient Care Devices MAGR Pre-Care Text: A.200 Assesses risk for normothermia regulation A.40 Verifies presence of prosthetics or corrective devices Im.280 Implements thermoregulation measures Im.60 Uses supplies and equipment within safe parameters Entry 1 Entry 2 Equipment Type FLOWTRON FOOT CUFF REG FORCED WARM AIR Serial ?# [id number] Equipment Setting PLACED ON NON OPERATIVE 43 DEGREES LEG, FACTORY DEFAULT SETTINGS Last Modified By: Stacie Sarmiento RN, Stephanie RN 06/13/20 08:20:27 06/13/20 08:20:27 Post-Care Text: E.10 Evaluates signs and symptoms of physical injury to skin and tissue O.700 Patient is free from signs and symptoms of injury caused by extraneous objects Cautery MAGR Pre-Care Text: A.240 Assesses baseline skin condition A.40 Verifies presence of prosthetics or corrective devices Im.50 Implements protective measures to prevent injury due to electrical sources Entry 1 ESU Type Electrosurgical Unit Identification [id number] Number ESU Settings Syntegrity Cut Setting 75 Coag Setting 75 Grounding Pad Details Grounding Pad Yes Verified By Stacie Sarmiento RN Needed? Grounding Pad Site Table Grounding Pad Within Expiration Yes Date? Outcome Met (O.10) Yes Last Modified By: Stacie Sarmiento RN 06/13/20 08:21:15 Post-Care Text: E.10 Evaluates for signs and symptoms of physical injury to skin and tissue O.10 Patient is free from signs and symptoms of injury related to thermal sources Medication Administration MAGR Pre-Care Text: A.210 Identifies physiological status Im.220 Administers prescribed medications Entry 1 Entry 2 Time Administered 06/13/20 09:28:00 06/13/20 09:28:00 Medication EXPAREL BACITRACIN Route of Admin SubQ TOP Dose Volume 20 mL By Kyle Vasquez James Andrew DO Andrew DO Outcome Met (O.130) Yes Yes Last Modified By: Stacie Sarmiento RN, Stephanie RN 06/13/20 09:29:37 06/13/20 09:29:37 Post-Care Text: E.20 Evaluates response to medications O.130 Patient receives appropriately administered medication(s) Implant Log MAGR Pre-Care Text: A.20 Verifies operative procedure, surgical site, and laterality Im.350 Records implants inserted during the operative or invasive procedure Entry 1 Entry 2 Entry 3 Procedure Arthroplasty Knee Arthroplasty Knee Arthroplasty Knee Total(Left) Total(Left) Total(Left) Implant Action Explant Explant Implant Description DEPUY THREADED HEADED DEPUY QUICK DRILL PINS DEPUY TIBIAL INSERT PINS [id number] Implant Information Implant/Explant 06/13/20 08:40:00 06/13/20 08:40:00 06/13/20 08:40:00 Date/Time Implanted/Explanted Kyle Vasquez James Huddleston, James By: Gt Velazquez DO Size 5MM Manager Radiation DEPUY DEPUY DEPUY Catalog # Lot Number [id number] Expiration Date 02/20/25 02/20/25 01/21/24 Serial Number REF [id number] REF [id number] REF 1516-20-505 Device Identifier Human Readable DENEEN Machine Readable DENEEN MR Class Implant Usage Data Site Knee L Knee L Knee L Quantity 1 1 1 Reason for Explant Reason Not Retained Explant Disposition Historiographer Sterility External Indicator Result Internal Indicator Results Outcome Met (O.30) Yes Yes Yes Last Modified By: Stacie Sarmiento RN, Stephanie RN Sauer, Stephanie RN 06/13/20 11:07:49 06/13/20 11:09:29 06/13/20 11:07:49 Entry 4 Entry 5 Entry 6 Procedure Arthroplasty Knee Arthroplasty Knee Arthroplasty Knee Total(Left) Total(Left) Total(Left) Implant Action Implant Implant Implant Description DEPUY PATELLA DOME DEPUY FEMORAL CRUCIATE BIOMET BONE CEMENT 1518-20-032 RETAINING 1504-00-105 Implant Information Implant/Explant 06/13/20 08:40:00 06/13/20 08:40:00 06/13/20 09:15:00 Date/Time Implanted/Explanted Kyle Vasquez James Huddleston, James By: Gt POWERS Gt Velazquez DO Size 32MM SIZE 5 LEFT Manager Radiation DEPUY DEPUY BIOMET Catalog # Lot Number [id number] Expiration Date 04/22/24 03/22/24 Serial Number REF 1518-20-032 REF 1504-00-105 REF [id number] Device Identifier Human Readable DENEEN Machine Readable DENEEN MR Class Implant Usage Data Site Knee L Knee L Knee L Quantity 1 1 2 Reason for Explant Reason Not Retained Explant Disposition Historiographer Sterility External Indicator Result Internal Indicator Results Outcome Met (O.30) Yes Yes Yes Last Modified By: Stacie Sarmiento RN, Stephanie RN Sauer, Stephanie RN 06/13/20 11:09:29 06/13/20 11:07:49 06/13/20 11:07:49 Entry 7 Procedure Arthroplasty Knee Total(Left) Implant Action Implant Description DEPUY TIBIAL BASE 1506-70-005 Implant Information Implant/Explant 06/13/20 08:40:00 Date/Time Implanted/Explanted Kyle Vasquez By: Gt POWERS Size SIZE 5 CEMENTED Manager Radiation DEPUY Catalog # Lot Number [id number] Expiration Date 04/22/30 Serial Number REF 1506-70-005 Device Identifier Human Readable DENEEN Machine Readable DENEEN MR Class Implant Usage Data Site Knee L Quantity 1 Reason for Explant Reason Not Retained Explant Disposition Historiographer Sterility External Indicator Result Internal Indicator Results Outcome Met (O.30) Yes Last Modified By: Stacie Sarmiento RN 06/13/20 11:12:12 Post-Care Text: E.30 Evaluates verification process for correct patient, site, side and level surgery O.30 Patient's procedure is performed on the correct site, side, and level Dressing/Packing MAGR Pre-Care Text: A.350 Assesses susceptibility for infection Im.290 Administer care to wound sites Entry 1 Skin Prep Agent Yes Site Knee Removed Prior to Dressing? Site Details Left Dressing Item Details Dressing Item 4x4's, ABD Tape (Im.290) Elastic Sports Bandage (Im.290) Outcome Met Yes Last Modified By: Stacie Sarmiento RN 06/13/20 08:27:54 Post-Care Text: E.200 Evaluates progress of wound healing O.200 Patient's wound perfusion is consistent with or improved from baseline levels Departure from OR MAGR Entry 1 Present on Depart Oxygen Via Stretcher Post-op Destination PACU Skin DFO Condition Dry Description Condition Intact Description Report Given To Arnold STEPHENS, Yuli Lepe Airway Maintenance Patient Status Stable Oxygen in Use? Yes Airway Device Nasal cannula Flow Rate 3 L/min Last Modified By: Stacie Sarmiento RN 06/13/20 11:14:33 Case Comments Finalized By: Stacie Sarmiento RN Document Signatures Signed By: Stacie Sarmiento RN 06/13/20 11:14 Stacie Sarmiento RN 06/13/20 11:15 Stacie Sarmiento RN 06/13/20 11:16 Stacie Sarmiento RN 06/13/20 11:22 Unfinalized History Date/Time Username Reason for Unfinalizing Freetext Reason for Unfinalizing 06/13/20 11:15 MHSSAUER Finish Documentation 06/13/20 11:15 MHSSAUER Modify Pick List 06/13/20 11:19 MHSSAUER Modify [facility] List [facility] MAGR Intraoperative Record MAGR Intra-Op Record Summary Primary Physician: Finalized Date/Time: 06/13/20 09:04:14 Pt. Name: JULIANNE PABON Nat Reyna/Sex: 1955 FEMALE Med Rec #: [id number] Physician: Kyle Vasquez DO Financial #: [id number] Pt. Type: I Room/Bed: [facility] Admit/Disch: 06/13/20 05:52:00 - Institution: Case Times MAGR Entry 1 Patient In Room Time 06/13/20 07:24:00 Out Room Time 06/13/20 07:32:00 Anesthesia Start Time 06/13/20 07:28:00 Stop Time 06/13/20 07:30:00 Surgery Start Time 06/13/20 07:28:00 Stop Time 06/13/20 07:30:00 Last Modified By: Elizabeth Garcia RN 06/13/20 08:59:37 Case Attendance MAGR Entry 1 Entry 2 Case Attendee Jakob Casey MD, Ruth RN Role Performed Anesthesiologist of Director Home Record Time In 06/13/20 07:24:00 06/13/20 07:24:00 Time Out 06/13/20 07:32:00 06/13/20 07:32:00 Procedure Adductor Canal Adductor Canal Block(Left) Block(Left) Last Modified By: Elizabeth Garcia RN 06/13/20 Elizabeth Garcia RN 06/13/20 09:00:35 09:00:35 Surgical Procedures MAGR Pre-Care Text: A.20 Verifies operative procedure, surgical site, and laterality Im.150 Develops individualized plan of care Entry 1 Procedure Adductor Canal Block Primary Procedure Yes Primary Surgeon Jakob Casey MD Modifiers Left Surgeon Comment ADDUCTOR CANAL BLOCK Start 06/13/20 07:28:00 PRIOR TO LEFT TOTAL KNEE Stop 06/13/20 07:30:00 Anesthesia Type Regional Block Surgical Service Anesthesia Wound Class Clean Technique Details Closure Technique N/A Entire procedure No was performed via laparoscope or robotic assistance Last Modified By: Elizabeth Garcia RN 06/13/20 09:00:31 Post-Care Text: O.730 The patient's care is consistent with the individualized perioperative plan of care General Case Data MAGR Pre-Care Text: A.350.1 Classifies surgical wound Entry 1 Case Information OR MAGR Proc Room Case Level None Wound Class Clean Specialty Anesthesia ASA Class 2 Diagnosis Preop Diagnosis ADDUCTOR CANAL BLOCK Postop Diagnosis Adductor block PRIOR TO LEFT TOTAL KNEE completed to rught thigh Blunt or No Is the procedure No penetrating injury considered occured prior to Emergent/Urgent? the start of the procedure: Last Modified By: Elizabeth Garcia RN 06/13/20 09:01:29 Post-Care Text: O.760 Patient receives consistent and comparable care regardless of the setting Time Out MAGR Entry 1 Time out date/time 06/13/20 07:21:00 All team members Yes have introduced themselves by name and role Surgeon, Yes Surgeon reviews Yes anesthesia, nurse critical or confirm patient, unexpected steps, site, procedure operative duration, anticipated blood loss Anesthesia team Yes Nursing team Yes reviews any reviews sterility patient-specific (including concerns indicator results) and equipment issues/concerns Antibiotic Last Modified By: Elizabeth Garcia RN 06/13/20 09:01:51 Patient Positioning MAGR Pre-Care Text: A.280 Identifies baseline musculoskeletal status Im.40 Positions the patient Im.80 Applies safety devices Entry 1 Procedure Adductor Canal Body Position Supine Block(Left) Left Arm Position Resting at Side Right Arm Position Resting at Side Left Leg Position Extended Right Leg Position Extended Feet Uncrossed? Yes Press Points Checked Yes Outcome Met (O.80) Yes Last Modified By: Elizabeth Garcia RN 06/13/20 09:02:26 Post-Care Text: E.290 Evaluates musculoskeletal status O.80 Patient is free from signs and symptoms of injury related to positioning Skin Prep MAGR Pre-Care Text: A.30 Verifies allergies Im.270 Performs skin preparation Im.270.1 Implements protective measures to prevent skin and tissue injury due to chemical sources Entry 1 Skin Prep Syntegrity Prep Agents (Im.270) Chlorhexidine Gluconate Prep By Jakob Casey MD and Alcohol Prep Area (Im.270) Thigh Prep Area Details Left Skin Prep Agent Dry Yes Without Pooling Hair Removal Syntegrity Hair Removal Methods No hair removal performed Outcome Met (O.100) Yes Last Modified By: Elizabeth Garcia RN 06/13/20 09:03:07 Post-Care Text: E.10 Evaluates for signs and symptoms of physical injury to skin and tissue O.100 Patient is free from signs and symptoms of chemical injury Departure from OR MAGR Entry 1 Present on Depart N/A Via Stretcher Post-op Destination [place] Skin DFO Condition Description Report Given To Stacie Sarmiento RN Airway Maintenance Patient Status Stable Oxygen in Use? Yes Airway Device Nasal cannula Flow Rate 2 L/min Last Modified By: Elizabeth Garcia RN 06/13/20 09:03:35 Case Comments Finalized By: Elizabeth Garcia RN Document Signatures Signed By: Elizabeth Garcia RN 06/13/20 09:04 [facility] MAGR PACU Recordon 0 MAGR PACU Record [facility] PACU Record Summary Primary Physician: Kyle Vasquez DO Finalized Date/Time: 06/13/20 10:51:34 Pt. Name: JULIANNE PABON/Sex: 1955 FEMALE Med Rec #: [id number] Physician: Kyle Vasquez DO Financial #: [id number] Pt. Type: I Room/Bed: [facility] Admit/Disch: 06/13/20 05:52:00 - Institution: PACU Case Times MAGR Entry 1 In PACU I 06/13/20 09:50:00 Ready for PACU I 06/13/20 10:47:00 Discharge Discharge from PACU 06/13/20 10:47:00 I Last Modified By: Yuli Barrett RN 06/13/20 10:51:13 General Comments: REPORT GIVEN AT BEDSIDE TO Haleigh CORDERO RN Finalized By: Yuli Barrett RN Document Signatures Signed By: Yuli Barrett RN 06/13/20 10:51 [facility] Nutrition Noteon 06-13-2020 Nutrition Note Pt admitted for planned Lt total knee surgery. No wt hx available. Pt still remains NPO, however, surgery complete w/ ortho MD denying any complications. Suspect diet should be advanced shortly. Pt w/ HTN, BP has been elevated. Would rec'd 2gr Na or cardiac restrictions. Will also monitor need for supplements for increased protein needs if not added post op once diet advanced. Pt is less than 65y, appears to be at low nutrition risk. Will monitor for intake, diet tolerance, changes in wts and labs. Diet was advanced to Regular as tolerated w/ Ensure Compact BID. Per vitals reviewed, elevated BP appears in short segment of time with prior and post surgery wnl. Will monitor need to add diet restrictions and keep liberalized for now. Normal [facility] Operative Report - Surgeon/P adrienne 06-13-2020 Operative Report - Surgeon/Physician Preoperative diagnosis: Primary osteoarthritis left knee Postoperative diagnosis: same Procedure: Left total knee replacement; metal on polyethylene IMPLANTS Attune left CR 5 tibia 5 5mm poly CR 32 mm patella Surgeon: Karina Vasquez D.O. Anesthesia: General Indications for surgery: Failure of conservative treatment with progressions of symptoms and radiographic findings suggestive of knee osteoarthritis Estimated blood loss: 150 Complications: There were no complications Findings: Compartmental osteoarthritis Procedure summary: After general anesthesia the leg was sterilely prepped and draped in usual fashion. A timeout was taken. A standard anterior medial approach was utilized a tourniquet was applied as a matter precaution but was not utilized during surgery. The patella was subluxed and cut in line tended tendon and the fat pad was excised the patella measured at 32 and was prepared with a peg drill. The knee was placed in flexion and step drill was used to create a hole for the intramedullary guide. The intramedullary femoral guide was inserted and the distal cut was taken taken only 2 degrees of valgus. The knee was dislocated and the extra medullary cutting guide was secured to the tibia and a cut was taken perpendicular to the tibia. The knee was placed in extension and a spacer block was inserted with the drop edwina verifying a perpendicular cut and the collaterals were intact. The knee was placed back in flexion what remained of the meniscus were excised. The femoral sizer was secured to the femur and referencing off the anterior cortex drill holes were made the femur sized out to a 5. Distal femoral cutting block was secured in place and the anterior posterior and chamfer cuts were taken followed by the trochlear cut. At this point I cleaned out the back of the knee made sure all remnants of meniscus were excised all bone spurs and osteophytes had been removed. Trial components were then inserted and a size 5 femur with a size 5 tibia and a 5 mm spacer produced excellent balance with full terminal extension and flexion beyond 120 degrees. The knee was balanced in flexion and extension and the patella was tracking midline. The tibia was prepared with a drill and a broach trial components were removed. The bone was washed with pulse lavage meanwhile the cement was mixed. I injected 5 cc of Exparel into the posterior medial and posterior lateral corners. The bone was washed more and dried. The cement was applied to the implants immediately upon mixing and the tibial component was cemented into place followed by the femoral component and the polyethylene spacer The knee was placed in terminal extension and the patella was washed and dried and the patella was cemented into place with a clamp. The clamp was left in place with the knee in terminal extension and compression across the joint till cement was completely hardened. The clamp was removed the knee was taken through range of motion all excess cement was trimmed from the borders of the prosthesis the patella was tracking midline the knee was balanced both in flexion and extension. I irrigated thoroughly I had aggressively pursued hemostasis throughout the procedure with the Bovie and the irrigating bipolar. I injected 5 cc of Exparel into each epicondylar synovial region. I closed the capsule with a #2 Ethibond #2 Quill and 0 Vicryl the fat and subcutaneous layers were closed with 0 Vicryl followed by a running subcuticular oh Quill and then donnell bacitracin Adaptic and sterile dressings. [Electronically Signed on: 06/13/2020 09:44 EDT] Kyle Vasquez DO [Verified on: 06/13/2020 09:44 EDT] Kyle Vasquez DO [facility] Patient Handouton 06-13-2020 Patient Handout Knee Rehabilitation in the Home After knee surgery, it is important to follow instructions from your health care provider about rehabilitation (rehab). It is important to design a program that is safe and effective for you. Your health care provider and rehabilitation therapist will work with you to meet your specific abilities and needs. What are the benefits? Knee rehab can help to: ? Strengthen your knee. ? Improve the flexibility and movement (range of motion) of your knee joint. ? Reduce swelling. ? Improve blood flow and prevent blood clots. How to do exercises at home ? Continue exercises at home that your health care provider or physical therapist instructed you to do in the hospital. ? Before you exercise: ? Take pain medicines, if told by your health care provider. Do not take the medicine if it makes you feel dizzy or sleepy. ? Do a warm-up activity, such as gentle walking or riding a stationary bike, as told by your health care provider. Doing that warms up your muscles and helps to prevent injury. ? While doing exercises: ? When standing, make sure you are near something sturdy that you can hold onto for balance, such as a heavy chair or the wall. ? Do exercises exactly as told by your health care provider and adjust them as directed. ? As you are recovering, choose an exercise pace that is comfortable for you, and gradually work up to your goal. ? Do not force your knee to bend. ? Do not exercise in a pool (aquatic therapy) until your incision is healed and your health care provider says that you can. Follow these instructions at home: Activity ? Do not use your knee to support (bear) your body weight until your health care provider says that you can. Follow weight-bearing restrictions as told. Use crutches or a walker as told by your health care provider. ? Do not twist or kneel on your injured knee. ? Ask your health care provider what activities are safe for you during recovery, and ask what activities you need to avoid. ? Avoid sitting for a long time without moving. Get up to take short walks every 1?2 hours. Ask for help if you feel weak or unsteady. Managing pain, stiffness, and swelling ? Put ice on affected areas after you exercise, or as needed. Icing can help to relieve joint pain and swelling. ? Put ice in a plastic bag or use the icing device (cold flow pad or cold therapy unit) that you were given. Follow instructions from your health care provider about how to use the icing device. ? Place a towel between your skin and the bag or device. ? Leave the ice on for 20 minutes, 2?3 times a day. ? If directed, apply heat to affected areas before you exercise, or as needed. Heat can reduce the stiffness of your muscles and joints. Use the heat source that your health care provider recommends, such as a moist heat pack or a heating pad. ? Place a towel between your skin and the heat source. ? Leave the heat on for 20?30 minutes. ? Remove the heat if your skin turns bright red. This is especially important if you are unable to feel pain, heat, or cold. You may have a greater risk of getting burned. ? Wear compression stockings as told by your health care provider. These stockings help to prevent blood clots and reduce swelling in your legs. ? Raise (elevate) your legs while sitting or lying down. Do not place your knee on top of pillows to elevate it. Keep your legs straight to prevent your knee from getting stuck in a bent position (contracture). Preventing falls ? Keep your home well-lit and clutter-free, especially in walkways and stairways. Keep floors dry and use non-skid mats. ? Remove tripping hazards from floors, such as throw rugs and cords. ? Install grab bars in bathrooms, and put night-lights in your bedroom and bathroom. ? Wear closed-toe shoes that fit well and support your feet. Wear shoes that have rubber soles or low heels. ? Talk with your health care provider about the [id number] and prescription medicines that you are taking. Some medicines can cause dizziness or changes in blood pressure, which increase your risk of falling. General recommendations ? Teach your family about your condition and how they can participate in your recovery. Include them during a physical therapy session. ? Keep all follow-up visits as told by your health care provider and physical therapist. This is important. Questions to ask your health care provider ? What exercises are safe for me to do? ? How often should I do the exercises? ? How can I manage the pain during exercise? ? What other activities are safe for me to do? Contact a health care provider if: ? You have questions about how to do exercises correctly. ? You have increased difficulty bending your knee. ? You have knee pain that does not go away after you rest and take pain medicines. ? Your prosthesis feels loose. ? You are not able to do exercises. Get help right away if: ? You fall. ? Your incision from surgery breaks open. Summary ? Knee rehab can help to strengthen your knee and improve the flexibility and movement (range of motion) of your knee joint. ? Continue exercises at home that your health care provider or physical therapist instructed you to do in the hospital. ? Call your health care provider if you have questions about how to do exercises correctly. This information is not intended to replace advice given to you by your health care provider. Make sure you discuss any questions you have with your health care provider. Document Released: 09/09/2006 Document Revised: 08/22/2018 Document Reviewed: 08/04/2018 [employer] Patient Education ? 2019 [employer]. [facility] Pharmacy Noteon 06-13-2020 Pharmacy Note I have personally reviewed this patient's current medication list including prescription medications, OTC products, vitamins and supplements for the following: Home Medication Review Home medications reviewed as follows: Active Medications acetaminophen-hydroc odone 5mg/325m tab(s), PO, TID, PRN: for pain albuterol 90mcg/inh: 2 puff(s), INH, TID, PRN: shortness of breath or wheezing celecoxib: 100 mg = 1 cap(s), PO, BID, 180 cap(s) DULoxetine: 60 mg = 1 cap(s), PO, BID, (do not crush or chew) ferrous sulfate: 325 mg = 1 tab(s), PO, Daily, 30 tab(s) glucosamine: 1 tab(s), PO, Daily hydrOXYzine hydrochloride: 10 mg = 1 tab(s), PO, BID, PRN: for anxiety losartan: 100 mg = 1 tab(s), PO, Daily multivitamin: 1 tab(s), PO, Daily pantoprazole: 40 mg = 1 tab(s), PO, Daily traZODone: 75 mg = 0.5 tab(s), PO, HS Status of Medication History: Incomplete Source of Information: External Medication Review/Pharmacy Records Changes Made: - Medications Modified: [place] 5mg/325mg with updated directions to reflect directions from most recent fill 05/27/2020; hydroxyzine hydrochloride 10mg with updated directions to reflect directions from most recent fill 05/09/2020 Other Comments: Trazodone on document medication list , however does not show on external medication list. Will follow-up with the patient to verify. Renal Function: Estimated CrCl: 100.12ml/min (based on adjusted body weight) Automatic pharmacy renal dose adjusted medication(s): No dose adjustment required based on current CrCl Action: Continue to monitor renal function Anticoagulation or Prophylaxis: Aspirin Action: none required Antibiotics: Cefazolin x 3 post-op Action: None required Pain Management: Scheduled non-narcotic: IV APAP x 24 hrs; IV ketorolac; Lyrica; Celebrex prn narcotic pain medication(s): Oxycodone 5mg - moderate pain; 10mg - severe pain prn non-narcotic pain medication(s):PO APAP - mild; PO ketorolac - mild Action: OARRS and risk factors reviewed IV hydromorphone from anesthesiologist d/c'd by NURSING HOME DIRECTOR. Other: Handwritten Percocet RX per Dr. Vasquez for pt upon d/c. Will add to documented medication list for depart paperwork. [Electronically Signed on: 06/13/2020 12:38 EDT] Lakesha Stafford PharmD [Verified on: 06/13/2020 12:38 EDT] Lakesha Stafford PharmD [facility] Progress Note - Nurseon 05-25 Progress Note - Nurse pt arrived to unit, drowsy, easily arousable, conversive and oriented, oxygen at 2L NC, IV to Lwrist patent, polar pack to L knee, heels placed back on hell supports, pt just received iv pain medication prior to coming to floor, pt states still in pain but falls back to sleep quickly. vitals taken as charted. will monitor [Electronically Signed on: 07/14/2020 14:54 EDT] Cordero RN, Mindy [Verified on: 07/14/2020 14:54 EDT] Mindy Cordero RN [facility] XR Knee One or Two Views [place] 06-13-2020 XR Knee One or Two Views Left EXAM: XR Knee One or Two Views Left HISTORY: postop TKA COMPARISON: None. TECHNIQUE: Portable frontal and lateral FINDINGS: There are skin donnell and the large amount of air in the soft tissues in keeping with recent procedure. There is a large amount of air in the suprapatellar space as well as a large amount of air in the subcutaneous tissues. This is an expected finding in the immediate postoperative state. The hardware projects in expected location with no periprosthetic fractures seen. Incidental vascular calcification seen. IMPRESSION: Skin donnell and a large amount of air in the soft tissues in keeping with recent procedure. Hardware status post total knee arthroplasty. Final Dictated by: Sandra Dave MD Dictated DT/TM: 06/13/20 11:32 Signed (Electronic Signature): Sandra Dave MD 06/13/20 11:35 a Technologist: Tiki SUÁREZ [facility] Progress Note - Nurseon 05-24 Progress Note - Nurse Spoke with pt and informed her to be here at 6am and NPO after MN, she verbalizes understanding. [Electronically Signed on: 06/10/2020 10:20 EDT] Stephania Quiros RN [Verified on: 06/10/2020 10:20 EDT] Stephania Quiros RN [facility] Progress Note - Nurse PAT review done per Dr. Casey incl. med. clearance, no orders received. [Electronically Signed on: 06/10/2020 07:32 EDT] Kimberly Singh RN [Verified on: 06/10/2020 07:32 EDT] Kimberly Singh RN Normal [facility] SARS-CoV-2 (COVID-19) PCRon 06-10-2020 COVID-19 PCR Not Detected Normal Not Detected [facility] Comment on above: Performed By: #### 1 [id number] #### [facility] (DEFAULT) [address] [place] [address] Employed in healthcare? No [facility] Comment on above: Performed By: #### 1 [id number] #### [facility] (DEFAULT) [address] [place] [address] Group care resident? No [facility] Comment on above: Performed By: #### 1 [id number] #### [facility] (DEFAULT) [address] [place] [address] Hospitalized due to COVID-19? No [facility] Comment on above: Performed By: #### 1 [id number] #### [facility] (DEFAULT) [address] [place] [address] In ICU? No [facility] Comment on above: Performed By: #### 1 [id number] #### [facility] (DEFAULT) [address] [place] [address] status? Not [facility] Comment on above: Performed By: #### 1 [id number] #### [facility] (DEFAULT) [address] [place] [address] Symptomatic as defined by CDC? No [facility] Comment on above: Performed By: #### 1 [id number] #### [facility] (DEFAULT) [address] [id number] Progress Note - Nurseon Progress Note - Nurse PAT chart for 06/13/20 surgery reviewed by anesthesiologist, Dr. Nunez and requesting medical clearance- Dr. Vasquez's office called- Latoya not available per Mindy budget record clerk- Mindy sending Latoya an email of request for medical clearance. [Electronically Signed on: 05/24/2020 14:24 EDT] Angélica Hatfield RN [Verified on: 05/24/2020 14:24 EDT] Angélica Hatfield RN from Dr. Vasquez's office called back and stated she would relay message to Lizeth patient advocate. [Electronically Signed on: 05/24/2020 14:43 EDT] Angélica Hatfield RN [facility] Coding Summaryon 05-23-2020 Coding Summary CODING DATE: 05/23/2020 FINAL [facility] STATUS: Home PAYOR: Medicare APC DESCRIPTION 5733 Level 3 Minor Procedures ADMIT DX: REASON FOR VISIT DX: M17.12 Unilateral primary osteoarthritis, left knee I10 Essential (primary) hypertension FINAL DX: PRINCIPAL: M17.12 Unilateral primary osteoarthritis, left knee SECONDARY: I10 Essential (primary) hypertension K21.9 Gastro-esophageal reflux disease without esophagitis PYMT PROC APC STAT DESCRIPTION DOCTOR NAME DATE NOTE: The code number assigned matches the documented diagnosis and / or procedure in the patient's chart. However, the narrative phrase printed from the coding software may appear abbreviated, or result in slightly different terminology. Coded By: Cristal Ybarra Date Saved: 05/23/2020 01:22 pm Normal [facility] Provider Orderson 05-23-2020 Provider Orders [id number] [facility] C MRSA Screenon 05-21-2020 C MRSA Screen Negative [facility] Comment on above: Performed By: #### 1 [id number] #### [facility] (DEFAULT) [address] [place] [address] .Auto Diff 1on 05-20-2020 Auto [place] % 9 % Normal 1-12 [facility] Comment on above: Performed By: #### 1 [id number], [id number], [id number] #### [facility] (DEFAULT) [address] [place] [address] Baso Abs# 0.0 x10 Normal 0.0-0.2 [facility] Comment on above: Performed By: #### 1 [id number], [id number], [id number] #### [facility] (DEFAULT) [address] [place] [address] Basophils/100 WBC (Bld) 0.7 % Normal 0.2-2.0 [facility] Comment on above: Performed By: #### 1 [id number], [id number], [id number] #### [facility] (DEFAULT) [address] [place] [address] 15865 Eos Abs# 0.1 x10 Normal 0.0-0.4 [facility] Comment on above: Performed By: #### 1 [id number], [id number], [id number] #### [facility] (DEFAULT) [address] [place] [address] 83703 Eosinophils/100 WBC (Bld) 2.0 % Normal 0.9-4.0 [facility] Comment on above: Performed By: #### 1 [id number], [id number], [id number] #### [facility] (DEFAULT) [address] [place] [address] 78509 Lymphocytes (Bld) [#/Vol] 1.7 x10 Normal 1.3-2.9 [facility] Comment on above: Performed By: #### 1 [id number], [id number], [id number] #### [facility] (DEFAULT) [address] [place] [address] Lymphocytes/100 WBC (Bld) 27 % Normal 14-48 [facility] Comment on above: Performed By: #### 1 [id number], [id number], [id number] #### [facility] (DEFAULT) [address] [place] [address] [place] Abs# 0.6 x10 Normal 0.0-0.8 [facility] Comment on above: Performed By: #### 1 [id number], [id number], [id number] #### [facility] (DEFAULT) [address] [place] [address] Neut Abs# 3.7 x10 Normal 1.5-9.2 [facility] Comment on above: Performed By: #### 1 [id number], [id number], [id number] #### [facility] (DEFAULT) [address] [place] [address] Neutrophils/100 WBC (Bld) 60 % Normal 44-88 [facility] Comment on above: Performed By: #### 1 [id number], [id number], [id number] #### [facility] (DEFAULT) [address] [place] [address] Standardon 05-20-2020 eGFR Non AA >60 [facility] Comment on above: Performed By: #### 1 [id number], [id number], [id number] #### [facility] (DEFAULT) [address] [place] [address] eGFR AA >60 [facility] Comment on above: Result Comment: Senior Cost Estimator maribel Kidney disease could be indicated at eGFRs of less than 60 ml/min/1.73m2. Kidney Failure is indicated at less than 15 ml/min/1.73m2 Performed By: #### 1 [id number], [id number], [id number] #### [facility] (DEFAULT) [address] [place] [address] Anion gap [Moles/Vol] 16.0 mmol/L Normal 5.0-19.0 [facility] Comment on above: Performed By: #### 1 [id number], [id number], [id number] #### [facility] (DEFAULT) [address] [place] [address] 30694 Calcium [Mass/Vol] 9.7 mg/dL Normal 8.9-10.3 [facility] Comment on above: Performed By: #### 1 [id number], [id number], [id number] #### [facility] (DEFAULT) [address] [place] [address] 37770 Chloride [Moles/Vol] 103 mmol/L Normal 101-111 [facility] Comment on above: Performed By: #### 1 [id number], [id number], [id number] #### [facility] (DEFAULT) [address] [place] [address] 64009 CO2 [Moles/Vol] 25 mmol/L Normal 21-32 [facility] Comment on above: Performed By: #### 1 [id number], [id number], [id number] #### [facility] (DEFAULT) [address] [place] [address] 07805 Creatinine [Mass/Vol] 0.83 mg/dL Normal 0.60-1.30 [facility] Comment on above: Performed By: #### 1 [id number], [id number], [id number] #### [facility] (DEFAULT) [address] [place] [address] 89291 Glucose [Mass/Vol] 95.0 mg/dL Normal 74.0-118.0 [facility] Comment on above: Performed By: #### 1 [id number], [id number], [id number] #### [facility] (DEFAULT) [address] [place] [address] 95479 Osmolality [Osmolality] 281 mOsm/L [facility] Comment on above: Performed By: #### 1 [id number], [id number], [id number] #### [facility] (DEFAULT) [address] [place] [address] 67345 Potassium [Moles/Vol] 4.2 mmol/L Normal 3.6-5.1 [facility] Comment on above: Performed By: #### 1 [id number], [id number], [id number] #### [facility] (DEFAULT) [address] [place] [address] Sodium [Moles/Vol] 140.0 mmol/L Normal 136.0-144.0 [facility] Comment on above: Performed By: #### 1 [id number], [id number], [id number] #### [facility] (DEFAULT) [address] [place] [address] Urea nitrogen [Mass/Vol] 18 mg/dL Normal 8-26 [facility] Comment on above: Performed By: #### 1 [id number], [id number], [id number] #### [facility] (DEFAULT) [address] [place] [address] Urea nitrogen/Creatinine [Mass ratio] 22.0 mg/mg High 4.6-16.2 [facility] Comment on above: Performed By: #### 1 [id number], [id number], [id number] #### [facility] (DEFAULT) [address] [place] [address] CBC w/ Auto Diffon 0 Erythrocyte distribution width (RBC) [Ratio] 13.9 % Normal 11.5-15.0 [facility] Comment on above: Performed By: #### 1 [id number], [id number], [id number] #### [facility] (DEFAULT) [address] [place] [address] Hematocrit (Bld) [Volume fraction] 41.3 % High 33.7-40.4 [facility] Comment on above: Performed By: #### 1 [id number], [id number], [id number] #### [facility] (DEFAULT) [address] [place] [address] Hemoglobin (Bld) [Mass/Vol] 13.4 g/dL Normal 11.3-15.9 [facility] Comment on above: Performed By: #### 1 [id number], [id number], [id number] #### [facility] (DEFAULT) [address] [place] [address] Man Diff? Auto Normal [facility] Comment on above: Performed By: #### 1 [id number], [id number], [id number] #### [facility] (DEFAULT) [address] [place] [address] 79922 MCH (RBC) [Entitic mass] 31 pg Normal 24-34 [facility] Comment on above: Performed By: #### 1 [id number], [id number], [id number] #### [facility] (DEFAULT) [address] [place] [address] 34137 MCHC (RBC) [Mass/Vol] 32 g/dL Normal 26-37 [facility] Comment on above: Performed By: #### 1 [id number], [id number], [id number] #### [facility] (DEFAULT) [address] [place] [address] 62863 MCV (RBC) [Entitic vol] 96 fL Normal 81-100 [facility] Comment on above: Performed By: #### 1 [id number], [id number], [id number] #### [facility] (DEFAULT) [address] [place] [address] 29986 Platelet mean volume (Bld) [Entitic vol] 8.6 fL Normal 6.3-10.2 [facility] Comment on above: Performed By: #### 1 [id number], [id number], [id number] #### [facility] (DEFAULT) [address] [place] [address] 80957 Platelets (Bld) [#/Vol] 206 x10 Normal 138-427 [facility] Comment on above: Performed By: #### 1 [id number], [id number], [id number] #### [facility] (DEFAULT) [address] [place] [address] 49276 RBC (Bld) [#/Vol] 4.28 x10 Normal 3.70-5.30 [facility] Comment on above: Performed By: #### 1 [id number], [id number], [id number] #### [facility] (DEFAULT) [address] [place] [address] 80359 WBC (Bld) [#/Vol] 6.1 x10 [facility] Comment on above: Performed By: #### 1 [id number], [id number], [id number] #### [facility] (DEFAULT) [address] [place] [address] 03693 UA w Culture if Ind Standard on 05-20-2020 Breakpoint UA Normal [facility] Comment on above: Performed By: #### 1 [id number] #### [facility] (DEFAULT) [address] [place] [address] 00120 Color (U) Yellow Normal [facility] Comment on above: Performed By: #### 1 [id number] #### [facility] (DEFAULT) [address] [place] [address] 71387 Culture? Not Indicated [facility] Comment on above: Performed By: #### 1 [id number] #### [facility] (DEFAULT) [address] [place] [address] 10167 Glucose (U) [Mass/Vol] Negative [facility] Comment on above: Performed By: #### 1 [id number] #### [facility] (DEFAULT) [address] [place] [address] 28849 Ketones Ql (U) Negative Normal [facility] Comment on above: Performed By: #### 1 [id number] #### [facility] (DEFAULT) [address] [place] [address] 91958 Micro? Not Indicated [facility] Comment on above: Performed By: #### 1 [id number] #### [facility] (DEFAULT) [address] [place] [address] 29597 UA Bilirubin Negative Normal [facility] Comment on above: Performed By: #### 1 [id number] #### [facility] (DEFAULT) [address] [place] [address] 05874 UA Blood Negative Normal NEGATIVE [facility] Comment on above: Performed By: #### 1 [id number] #### [facility] (DEFAULT) [address] [place] [address] 52125 UA Clarity CLEAR Normal CLEAR [facility] Comment on above: Performed By: #### 1 [id number] #### [facility] (DEFAULT) [address] [place] [address] 57174 UA Leuk Est Negative Normal NEGATIVE [facility] Comment on above: Performed By: #### 1 [id number] #### [facility] (DEFAULT) [address] [place] [address] 48338 UA Nitrite Negative Normal NEGATIVE [facility] Comment on above: Performed By: #### 1 [id number] #### [facility] (DEFAULT) [address] [place] [address] 95679 UA pH 7.0 Normal 5-8 [facility] Comment on above: Performed By: #### 1 [id number] #### [facility] (DEFAULT) [address] [place] [address] UA Protein Negative Normal NEGATIVE [facility] Comment on above: Performed By: #### 1 [id number] #### [facility] (DEFAULT) [address] [place] [address] UA Spec Grav 1.020 Normal 1.001-1.035 [facility] Comment on above: Performed By: #### 1 [id number] #### [facility] (DEFAULT) [address] [place] [address] UA Urobilinogen 0.2 mg/dL Normal 0.2-1.0 [facility] Comment on above: Performed By: #### 1 [id number] #### [facility] (DEFAULT) [address] [place] [address] Urine Source Clean Catch Normal [facility] Comment on above: Performed By: #### 1 [id number] #### [facility] (DEFAULT) [address] [place] [address] Vital Signs Date Time Vital Sign Value Performing Clinician Facility 01-21-2024 08:14-0400 Blood Pressure Location ILIANA PACHECO [facility] 01-21-2024 08:14-0400 Diastolic blood pressure 67 mm[Hg] ILIANA PACHECO [facility] 01-21-2024 08:14-0400 Heart rate 65 /min ILIANA PACHECO [facility] 01-21-2024 08:14-0400 Respiratory rate 19 /min ILIANA ELIZABETH [facility] 01-21-2024 08:14-0400 Systolic blood pressure 123 mm[Hg] ILIANA ELIZABETH [facility] 10-22-2023 10:16-0500 Heart rate 150 /min ILIANA ELIZABETH [facility] 10-22-2023 10:16-0500 Heart rate 85 /min ILIANA ELIZABETH [facility] 10-22-2023 09:51-0500 Blood Pressure Location ILIANA ELIZABETH [facility] 10-22-2023 09:51-0500 Diastolic blood pressure 93 mm[Hg] ILIANA ELIZABETH [facility] 10-22-2023 09:51-0500 Heart rate 63 /min ILIANA ELIZABETH [facility] 10-22-2023 09:51-0500 Respiratory rate 16 /min ILIANA ELIZABETH [facility] 10-22-2023 09:51-0500 Systolic blood pressure 165 mm[Hg] ILIANA ELIZABETH [facility] 05-24-2023 10:21-0400 Blood Pressure Location Feliz RAY [facility] 05-24-2023 10:21-0400 Diastolic blood pressure 87 mm[Hg] Feliz RAY [facility] 05-24-2023 10:21-0400 Heart rate 68 /min Feliz RAY [facility] 05-24-2023 10:21-0400 Respiratory rate 16 /min Feliz RAY [facility] 05-24-2023 10:21-0400 Systolic blood pressure 140 mm[Hg] Feliz RAY [facility] 04-30-2023 13:38-0400 Blood Pressure Location ILIANA PACHECO [facility] 04-30-2023 13:38-0400 Diastolic blood pressure 90 mm[Hg] ILIANA ELIZABETH [facility] 04-30-2023 13:38-0400 Heart rate 74 /min ILIANA ELIZABETH [facility] 04-30-2023 13:38-0400 Systolic blood pressure 158 mm[Hg] ILIANA ELIZABETH [facility] 01-10-2023 08:47-0400 Blood Pressure Location Davie NILL [facility] 01-10-2023 08:47-0400 Diastolic blood pressure 76 mm[Hg] Davie NILL [facility] 01-10-2023 08:47-0400 Heart rate 78 /min Davie NILL [facility] 01-10-2023 08:47-0400 Respiratory rate 16 /min Davie NILL [facility] 01-10-2023 08:47-0400 Systolic blood pressure 128 mm[Hg] Davie MEZA [facility] 12-26-2021 10:15-0400 Body height 157.48 cm Phuc [facility] 12-26-2021 10:15-0400 Body mass index (BMI) [Ratio] 48.28 kg/m2 [facility] 12-26-2021 10:15-0400 Body weight 119.75 kg Phuc [facility] 12-26-2021 10:15-0400 Diastolic blood pressure 71 mm[Hg] [facility] 12-26-2021 10:15-0400 Systolic blood pressure 126 mm[Hg] [facility] Other Encounters Encounter Date Encounter Type Care Provider Facility Start: 01-24-2024 End: 01-25-2024 ambulatory Tommy Stevenson Facility:[facility] Start: 01-24-2024 End: 01-24-2024 Patient encounter procedure Tommy Stevenson [facility] Start: 01-23-2024 End: 01-24-2024 ambulatory Bashir Alonzo Facility:[facility] Start: 01-21-2024 End: 01-22-2024 ambulatory LIT PACHECO Facility: [facility] Start: 01-21-2024 End: 01-21-2024 Patient encounter procedure ILIANA PACHECO [facility] [place] Start: 01-06-2024 End: 01-07-2024 ambulatory Bashir Alonzo Facility:[facility] [place] Start: 12-27-2023 End: 12-28-2023 ambulatory PERLITA PENDLETON Facility:[facility] [place] Start: 12-23-2023 ambulatory Bernardino Licona Facility:[facility] Start: 11-25-2023 End: 11-26-2023 ambulatory Bashir Alonzo Facility:[facility] [place] Start: 11-15-2023 End: 11-16-2023 ambulatory Bernardino Licona Facility:[facility] Start: 11-15-2023 End: 11-15-2023 Patient encounter procedure Bernardino Licona [facility] Start: 10-25-2023 End: 10-26-2023 ambulatory Bashir Alonzo Facility:[facility] Start: 10-22-2023 End: 10-23-2023 ambulatory PA-C ILIANA PACHECO [facility] [place] Start: 10-22-2023 End: 10-22-2023 Patient encounter procedure ILIANA PACHECO [facility] Start: 10-08-2023 End: 10-09-2023 ambulatory Feliz RAY Facility:[facility] Start: 10-08-2023 End: 10-08-2023 Patient encounter procedure Feliz RAY [facility] Start: 10-01-2023 End: 10-02-2023 ambulatory Feliz RAY Facility:[facility] [place] Start: 10-01-2023 End: 10-01-2023 Patient encounter procedure Feliz RAY [facility] Start: 09-10-2023 End: 09-11-2023 ambulatory Bashir Alonzo Facility:[facility] [place] Start: 08-27-2023 End: 08-28-2023 ambulatory Feliz R FLOR Facility:[facility] Start: 07-02-2023 End: 07-03-2023 ambulatory Felizalejandro RAY Facility:[facility] Start: 05-30-2023 End: 05-31-2023 ambulatory Feliz RAY Facility:[facility] Start: 05-30-2023 End: 05-30-2023 Patient encounter procedure Feliz RAY [facility] Start: 05-24-2023 End: 05-25-2023 ambulatory Feliz RAY Facility:[facility] Start: 05-24-2023 End: 05-24-2023 Patient encounter procedure Feliz RAY [facility] Start: 05-07-2023 End: 05-08-2023 ambulatory COOK HELPER FRUIT Polina West Facility:[facility] Start: 05-07-2023 End: 05-07-2023 Lab Drop off Polina L Jenna [facility] Start: 05-01-2023 ambulatory Bashir Alonzo Facility :[facility] [place] Start: 04-30-2023 End: 05-01-2023 ambulatory Bashir Alonzo Facility:[facility] [place] Start: 04-30-2023 End: 04-30-2023 Patient encounter procedure ILIANA PACHECO [facility] Start: 04-02-2023 End: 04-03-2023 ambulatory Bashir Alonzo Facility:[facility] [place] Start: 02-06-2023 End: 02-07-2023 ambulatory Davie MEZA Facility:[facility] Start: 01-29-2023 End: 01-30-2023 ambulatory Vipin Alamo Facility:[facility] Start: 01-29-2023 End: 01-29-2023 Patient encounter procedure Vipin Alamo [facility] Start: 01-10-2023 End: 01-10-2023 Patient encounter procedure Davie Agarwal DERRICK [facility] Start: 12-05-2022 End: 12-06-2022 ambulatory MARVIN ALTA MEGHA Facility:[facility] Start: 10-02-2022 End: 10-03-2022 ambulatory PIPE FITTER WELDING ALTA AICMARC Facility:[facility] Start: 08-27-2022 End: 08-27-2022 ambulatory KIERSTENPEARL ÁLVAREZ . Facility:[facility] Start: 08-22-2022 End: 08-23-[address] PEPE MELTON . Facility:[facility] Start: 06-28-2022 End: 06-29-2022 ambulatory MARVIN BROWNA MEGHA Facility:[facility] Start: 04-17-2022 End: 04-18-2022 ambulatory PIPE FITTER WELDING ALTA AICMARC Facility:[facility] Start: 04-11-2022 End: 04-11-2022 Patient encounter procedure Cristela Guaydenmj [facility] [place] Start: 02-15-2022 End: 05-24-2022 ambulatory MARVIN [place] Facility:[facility] Start: 01-04-2022 End: 01-05-2022 ambulatory KIERSTENPEARL ÁLVAREZ . 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 ILIANA PACHECO Start: 08-27-2023 Transurethral cystoscopy ILIANA PACHECO Start: 07-02-2023 Transurethral cystoscopy ILIANA PACHECO Start: 05-30-2023 Urodynamic studies DAMIAN PACHECO Appendectomy Davie NILL Comment on above: 2010 Arthroplasty of knee Davie NILL Bilateral tubal ligation Gavin hael NILL Comment on above: 1983 Cataract (disorder) Davie NILL Comment on above: 1997 Colonoscopy Davie NILL Comment on above: 2020 sheila Hemorrhoidectomy Davie NIL L Comment on above: 2020 Repair of ventral hernia Gavin hael NILL Tonsillectomy Davie NILL Comment on above: 1969 Plan of Treatment Date Care Activity Detail Author Start: 05-12-2024 ambulatory Ambulatory Facility:[facility] [place] Start: 03-24-2024 [facility]ulatory [facility] Immunizations Immunization Date Immunization Notes Care Provider Mario sandoval 07-23-2023 influenza virus vaccine, unspecified formulation Feliz FLOR [facility] 08-23-2022 influenza virus vaccine, unspecified formulation Davie MEZA [facility] 08-22-2022 SARS-CoV-2 (COVID-19 ) mRNA BNT-162b2 vax Davie NILL [facility] 09-07-2021 zoster vaccine recombinant Cristela Gudimella [facility] 07-21-2021 SARS-CoV-2 (COVID-19 ) mRNA BNT-162b2 vax Cristela Gudimella [facility] 06-13-2021 influenza virus vaccine, unspecified formulation Cristela Gudimella [facility] 06-13-2021 zoster vaccine recombinant Cristela [facility] 10-26-2020 SARS-CoV-2 (COVID-19 ) mRNA BNT-162b2 vax Cristela Gudimella [facility] Comment on above: Result Comment: 2021: [id number] 10-06-2020 SARS-CoV-2 (COVID-19 ) mRNA BNT-162b2 vax Cristela Gudimel [facility] Comment on above: Result Comment: 2021: [id number] Payers Date Payer Category Payer Unknown [id number] 2017 Unknown [id number] 1958 Medicaid [id number] 1958 Self-pay 1955 Unknown [id number] 2.16.84 [id number] 1955 Unknown [id number] 2.16.84 [id number] 1956 Unknown [id number] 2.16.84 [id number] 1956 Unknown [id number] 2.16.84 [id number] 1956 Unknown [id number] 2.16.84 [id number] 1956 Unknown [id number] 2.16.84 [id number] 1956 Unknown [id number] 2.16.84 [id number] 1956 Unknown [id number] 2.16.84 0.1.190341.3.579.2.593 1955 Unknown [id number] 2.16.8 40.1.628659.3.579.2.727 1955 Unknown [id number] 2.16.8 40.1.717221.3.579.2.727 1955 Unknown [id number] 2.16.8 40.1.126699.3.579.2.727 1955 Unknown [id number] 2.16.8 40.1.893116.3.579.2.727 1955 Unknown [id number] 2.16.8 40.1.437211.3.579.2.727 1955 Unknown [id number] 2.16.8 40.1.583275.3.579.2.727 1955 Unknown [id number] 2.16.8 40.1.482138.3.579.2.727 1955 Unknown [id number] 2.16.8 40.1.175314.3.579.2.727 1955 Unknown [id number] 2.16.8 40.1.170565.3.579.2.727 1955 Unknown [id number] 2.16.8 40.1.181848.3.579.2.727 1955 Unknown [id number] 2.16.8 40.1.249417.3.579.2.727 1955 Unknown [id number] 2.16.8 40.1.681859.3.579.2.727 1955 Unknown [id number] 2.16.8 40.1.418194.3.579.2. 1955 Unknown [id number] 2.16.8 40.1.796197.3.579.2. 1955 Unknown [id number] 2.16.8 40.1.925573.3.579.2 1955 Unknown [id number] 2.16.8 40.1.754326.3.579.2. 1955 Unknown [id number] 2.16.8 40.1.745029.3.579.2 1955 Unknown [id number] 2.16.8 40.1.562894.3.579.2 1955 Unknown [id number] 2.16.8 40.1.510666.3.579.2 1956 Unknown [id number] 2.16.8 40.1.106060.3.579.2 1955 Unknown [id number] 2.16.8 40.1.582516.3.579.2 1956 Unknown [id number] 2.16.8 40.1.056874.3.579.27 1955 Unknown [id number] 2.16.8 40.1.041751.3.579.2 1955 Unknown [id number] 2.16.8 40.1.963774.3.579.2. 1955 Unknown [id number] 2.16.8 40.1.297093.3.579.2 1955 Unknown [id number] 2.16.8 40.1.632102.3.579.2.7 1955 Unknown [id number] 2.16.8 40.1.966314.3.579.2 Unknown [id number] 2.16.84 0.1.872227.3.579.2.593 Social History Date Type Detail Facility Sex Assigned At [facility] Other Tobacco smoking status No Smokin g Status Entered [facility] Start: 01-10-2023 End: 01-24-2024 Tobacco smoking status Ex-smoker (finding) [facility] Comment on above: Former smoker, quit at age 31 Tobacco smoking status Never [facility] Comment on above: Former smoker, quit at age 31 Functional Status Date Assessment Result Facility 01-24-2024 Functional Status No [facility] 01-21-2024 Functional Status N/A [facility] 10-22-2023 Functional Status N/A [facility] 10-08-2023 Functional Status N/A [facility] 05-24-2023 Functional Status N/A [facility] 04-30-2023 Functional Status N/A [facility] 01-10-2023 Functional Status N/A [facility] Clinical Notes 12-26-2021 to 01-21-2024 Note Date & Type Note Facility 01-21-2024 Hospital Discharge instructions Patient Education 01/21/2024 15:43:02 Urinary Incontinence Urinary Incontinence Urinary incontinence refers to a condition in which a person is unable to control where and when to pass urine. A person with this condition will urinate involuntarily. This means that the person urinates when he or she does not mean to. What are the causes? This condition may be caused by: Medicines. Infections. Constipation. Overactive bladder muscles. Weak bladder muscles. Weak pelvic floor muscles. These muscles provide support for the bladder, intestine, and, in women, the uterus. Enlarged prostate in men. The prostate is a gland near the bladder. When it gets too big, it can pinch the urethra. With the urethra blocked, the bladder can weaken and lose the ability to empty properly. Surgery. Emotional factors, such as anxiety, stress, or post-traumatic stress disorder (PTSD). Spinal cord injury, nerve injury, or other neurological conditions. Pelvic organ prolapse. This happens in women when organs move out of place and into the vagina. This movement can prevent the bladder and urethra from working properly. What increases the risk? The following factors may make you more likely to develop this condition: Age. The older you are, the higher the risk. Obesity. Being physically inactive. and childbirth. Menopause. Diseases that affect the nerves or spinal cord. Long-term, or chronic, coughing. This can increase pressure on the bladder and pelvic floor muscles. What are the signs or symptoms? Symptoms may vary depending on the type of urinary incontinence you have. They include: A sudden urge to urinate, and passing urine involuntarily before you can get to a bathroom (urge incontinence). Suddenly passing urine when doing activities that force urine to pass, such as coughing, laughing, exercising, or sneezing (stress incontinence). Needing to urinate often but urinating only a small amount, or constantly dribbling urine (overflow incontinence). Urinating because you cannot get to the bathroom in time due to a physical disability, such as arthritis or injury, or due to a communication or thinking problem, such as Alzheimer's disease (functional incontinence). How is this diagnosed? This condition may be diagnosed based on: Your medical history. A physical exam. Tests, such as: ?Urine tests. ?X-rays of your kidney and bladder. ?Ultrasound. ?CT scan. ?Cystoscopy. In this procedure, a health care provider inserts a tube with a light and camera (cystoscope) through the urethra and into the bladder to check for problems. ?Urodynamic testing. These tests assess how well the bladder, urethra, and sphincter can store and release urine. There are different types of urodynamic tests, and they vary depending on what the test is measuring. To help diagnose your condition, your health care provider may recommend that you keep a log of when you urinate and how much you urinate. How is this treated? Treatment for this condition depends on the type of incontinence that you have and its cause. Treatment may include: Lifestyle changes, such as: ?Quitting smoking. ?Maintaining a healthy weight. ?Staying active. Try to get 150 minutes of moderate-intensity exercise every week. Ask your health care provider which activities are safe for you. ?Eating a healthy diet. ?Avoid high-fat foods, like fried foods. ?Avoid refined carbohydrates like white bread and white rice. ?Limit how much alcohol and caffeine you drink. ?Increase your fiber intake. Healthy sources of fiber include beans, whole grains, and fresh fruits and vegetables. Behavioral changes, such as: ?Pelvic floor muscle exercises. ?Bladder training, such as lengthening the amount of time between bathroom breaks, or using the bathroom at regular intervals. ?Using techniques to suppress bladder urges. This can include distraction techniques or controlled breathing exercises. Medicines, such as: ?Medicines to relax the bladder muscles and prevent bladder spasms. ?Medicines to help slow or prevent the growth of a man's prostate. ?Botox injections. These can help relax the bladder muscles. Treatments, such as: ?Using pulses of electricity to help change bladder reflexes (electrical nerve stimulation). ?For women, using a medical diagnostic radiographer to prevent urine leaks. This is a small, tampon-like, disposable device that is inserted into the urethra. ?Injecting collagen or carbon beads (bulking agents) into the urinary sphincter. These can help thicken tissue and close the bladder opening. ?Surgery. Follow these instructions at home: Lifestyle Limit alcohol and caffeine. These can fill your bladder quickly and irritate it. Keep yourself clean to help prevent odors and skin damage. Ask your health care provider about special skin creams and cleansers that can protect the skin from urine. Consider wearing pads or adult diapers. Make sure to change them regularly, and always change them right after experiencing incontinence. General instructions Take ezbb-odm-[id number] and prescription medicines only as told by your health care provider. Use the bathroom about every 3 4 hours, even if you do not feel the need to urinate. Try to empty your bladder completely every time. After urinating, wait a minute. Then try to urinate again. Make sure you are in a relaxed position while urinating. If your incontinence is caused by nerve problems, keep a log of the medicines you take and the times you go to the bathroom. Keep all follow-up visits. This is important. Where to find more information National [place] of [employer] and Digestive and Kidney Diseases: www.niddk.nih.gov [place] [employer] Association: www.urologyhealth.org Contact a health care provider if: You have pain that gets worse. Your incontinence gets worse. Get help right away if: You have a fever or chills. You are unable to urinate. You have redness in your groin area or down your legs. Summary Urinary incontinence refers to a condition in which a person is unable to control where and when to pass urine. This condition may be caused by medicines, infection, weak bladder muscles, weak pelvic floor muscles, enlargement of the prostate (in men), or surgery. Factors such as older age, obesity, and childbirth, menopause, neurological diseases, and chronic coughing may increase your risk for developing this condition. Types of urinary incontinence include urge incontinence, stress incontinence, overflow incontinence, and functional incontinence. This condition is usually treated first with lifestyle and behavioral changes, such as quitting smoking, eating a healthier diet, and doing regular pelvic floor exercises. Other treatment options include medicines, bulking agents, medical devices, electrical nerve stimulation, or surgery. This information is not intended to replace advice given to you by your health care provider. Make sure you discuss any questions you have with your health care provider. Document Revised: 04/14/2021 Document Reviewed: 04/14/2021 [employer] Patient Education 2022 [employer]. Follow Up Care 10/22/2023 10:36:34 With:ILIANA PACHECO PA-C, URL Address: [address] [place] [address] When:3 months [facility] 11-27-2023 Note Echocardiology Procedure Exam Date/Time Accession # Ordering ECG Stress Exercise 11/15/2023 09:14 EST [id number] Bernardino Licona MD. CPT code 28131 Reason for Exam (ECG Stress Exercise) R94.31;Other (please specify) Report PROCEDURE: Treadmill exercise stress test. INDICATION: Hypertension. PROCEDURE DETAILS: The patient was stressed according to the Danny Protocol. Exercised for 4 minutes 34 seconds achieving a heart rate of 141 beats per minute which was 92% maximal age predicted heart rate and 6.4 METS. The patient had symptoms of dyspnea. The test was stopped due to dyspnea and heart rate achieved. Blood pressure response was appropriate. Baseline electrocardiogram was sinus rhythm. With peak stress there was significant artifact in Stage 1 and Stage 2 that did not enable the test to be interpretable. The recovery phase was unremarkable. CONCLUSIONS: Nondiagnostic stress test due to lead artifact. Recommend consideration of alternate imaging modality. FINAL REPORT Signed (Electronic Signature): 11/27/2023 4:30 pm Signed by: Bernardino Licona MD Transcribed by: airam Technologist: RONI [facility] 11-18-2023 Note Echocardiology Procedure Exam Date/Time Accession # Ordering Echo Transthoracic 11/15/2023 08:41 EST [id number] Bernardino Licona MD CPT code 00994 53424 Reason for Exam (Echo Transthoracic Complete) R94.31;Hypertension Report [facility] [address] [place] [address] Adult Echocardiogram Report Name: JULIANNE PABON Study Date: 11/15/2023 07:57 AM BP: 126/72 mmHg Patient Location: [facility] HR: 66 : 1955 Gender: Female Height: 62 in Age: 68 yrs Ethnicity: [facility] Weight: 263 lb Reason For Study: Hypertension BSA: 2.1 m2 History: Hypertension, Morbid Obesity, Hypercholesterolemia, COPD, OWEN, Former smoker, COVID19 Ordering Physician: Bernardino Licona Referring Physician: Bernardino Licona Performed By: Lacey Montoya, [facility] Interpretation Summary Ejection Fraction = 60-65%. Normal LV and RV. No significant valve disease. Normal estimated PA pressure. Normal diastolic filling pattern. Procedure A complete two-dimensional transthoracic echocardiogram was performed (2D, M-mode, spectral and color flow Doppler). Study quality is good. Left Ventricle The left ventricle is normal in size. There is normal left ventricular wall thickness. Ejection Fraction = 60-65%. The left ventricular wall motion is normal. Normal diastolic function. Left Atrium The left atrial size is normal. Echocardiology Report Right Atrium Right atrial size is normal. Right Ventricle The right ventricular systolic function is normal. The right ventricle is normal size. The right ventricular wall motion is normal. Aortic Valve The aortic valve is trileaflet. No aortic regurgitation. There is no aortic stenosis. Mitral Valve The mitral valve is normal in structure and function. There is no mitral regurgitation noted. No mitral valve stenosis. Tricuspid Valve Structurally normal tricuspid valve. No evidence of tricuspid regurgitation. Pulmonic Valve No evidence of stenosis. There is no pulmonic valve regurgitation. Arteries The aortic root is normal in size. Normal ascending aorta. Pulmonary artery diameter is normal. Venous The inferior vena cava is normal in size, and collapses normally with respiration. Effusion There is no pericardial effusion. MMode/2D Measurements & Calculations RVDd: 3.1 cm LVIDd: 5.2 cm FS: 34.5 % Ao root diam: 3.0 cm IVSd: 1.0 cm LVIDs: 3.4 cm EDV(Teich): 127.9 ml Ao root area: 7.1 cm2 LVPWd: 0.95 cm ESV(Teich): 47.0 ml LA dimension: 3.2 cm EF(Teich): 63.2 % asc Aorta Diam: 3.0 cm LVLd ap4: 7.3 cm EDV(MOD-sp2): 64.3 ml SV(MOD-sp4): 39.2 ml EDV(MOD-sp4): 73.3 ml ESV(MOD-sp2): 28.4 ml LVLs ap4: 6.0 cm EF(MOD-sp2): 55.8 % ESV(MOD-sp4): 34.1 ml EF(MOD-sp4): 53.5 % TAPSE: 3.0 cm IVC Diam: 1.6 cm RVIDd/LVIDd: 0.60 EF (MOD-bp): 55.0 % LA Vol Index: 12.8 ml/m2 Doppler Measurements & Calculations MV E max constantine: 81.4 cm/sec MV dec time: 0.24 sec Ao V2 max: 151.0 cm/sec LV V1 max P.6 mmHg MV A max constantine: 80.6 cm/sec Ao max P.1 mmHg LV V1 mean P.0 mmHg MV E/A: 1.0 Ao V2 mean: 101.0 cm/sec LV V1 max: 94.3 cm/sec Echocardiology Report Ao mean P.0 mmHg LV V1 mean: 57.4 cm/sec Ao V2 VTI: 34.0 cm LV V1 VTI: 19.4 cm TR max constantine: 243.0 cm/sec RAP systole: 3.0 mmHg AV VR: 0.62 TR max P.6 mmHg RVSP(TR): 26.6 mmHg FINAL REPORT Dictated: 11/15/2023 7:57 am Bernardino Licona MD. Signed (Electronic Signature): 11/18/2023 10:53 am Signed by: Bernardino Licona MD Transcribed by: [facility] Technologist: ILYA [facility] 10-22-2023 Hospital Discharge instructions Patient Education 10/22/2023 10:35:12 Kegel Exercises Kegel Exercises Kegel exercises can help strengthen your pelvic floor muscles. The pelvic floor is a group of muscles that support your rectum, small intestine, and bladder. In females, pelvic floor muscles also help support the uterus. These muscles help you control the flow of urine and stool (feces). Kegel exercises are painless and simple. They do not require any equipment. Your provider may suggest Kegel exercises to: Improve bladder and bowel control. Improve sexual response. Improve weak pelvic floor muscles after surgery to remove the uterus (hysterectomy) or after , in females. Improve weak pelvic floor muscles after prostate gland removal or surgery, in males. Kegel exercises involve squeezing your pelvic floor muscles. These are the same muscles you squeeze when you try to stop the flow of urine or keep from passing gas. The exercises can be done while sitting, standing, or lying down, but it is best to vary your position. Ask your health care provider which exercises are safe for you. Do exercises exactly as told by your health care provider and adjust them as directed. Do not begin these exercises until told by your health care provider. Exercises How to do Kegel exercises: 1.Squeeze your pelvic floor muscles tight. You should feel a tight lift in your rectal area. If you are a female, you should also feel a tightness in your vaginal area. Keep your stomach, buttocks, and legs relaxed. 2.Hold the muscles tight for up to 10 seconds. 3.Breathe normally. 4.Relax your muscles for up to 10 seconds. 5.Repeat as told by your health care provider. Repeat this exercise daily as told by your health care provider. Continue to do this exercise for at least 4 6 weeks, or for as long as told by your health care provider. You may be referred to a physical therapist who can help you learn more about how to do Kegel exercises. Depending on your condition, your health care provider may recommend: Varying how long you squeeze your muscles. Doing several sets of exercises every day. Doing exercises for several weeks. Making Kegel exercises a part of your regular exercise routine. This information is not intended to replace advice given to you by your health care provider. Make sure you discuss any questions you have with your health care provider. Document Revised: 01/18/2022 Document Reviewed: 01/18/2022 [employer] Patient Education 2022 [employer]. Follow Up Care 08/27/2023 10:07:43 With:ILIANA PACHECO PA-C, URL Address: [address] [place] [address] [phone] When: Unknown Comments:3 mos [facility] 10-08-2023 Note [id number] [facility] 10-08-2023 Hospital Discharge instructions Patient Education 10/08/2023 10:04:19 [facility] - Cystoscopy with Botox Injection Discharge Instructions (CUSTOM) Cystoscopy with Botox injection Voiding after the procedure: there may be some pain, burning, urgency, frequency and blood tinged urine following the procedure. These symptoms usually resolve within 2-5 days. Drink the amount of fluid it takes to keep the urine pink to yellow or clear in color. Drinking enough water and fluids will help to ease any discomfort after your procedure. It may take a few days to a week to notice a gradual improvement in the overactive bladder symptoms. If you are having problems that seem out of the ordinary, please call. If unable to contact your physician and you feel it is an emergency, go to the nearest emergency room or call 911 Do not lift more than fifteen pounds for 1-2 days. If you see a lot of blood, you probably did too much. Diet you may resume your normal diet. Pain control You may take extra strength Tylenol or Motrin for discomfort. Call if you have a fever over 100 degrees. Follow Up Care 08/27/2023 10:12:54 With:Feliz RAY Address: [facility] [address] [place] [address]- Business (1) When:12/07/2023 10:03:51 Comments:With a bladder scan [facility] 10-08-2023 Note Custom Cystoscopy with Botox injection ? Voiding after the procedure: there may be some pain, burning, urgency, frequency and blood tinged urine following the procedure. These symptoms usually resolve within 2-5 days. Drink the amount of fluid it takes to keep the urine pink to yellow or clear in color. Drinking enough water and fluids will help to ease any discomfort after your procedure. ? It may take a few days to a week to notice a gradual improvement in the overactive bladder symptoms. ? If you are having problems that seem out of the ordinary, please call. ? If unable to contact your physician and you feel it is an emergency, go to the nearest emergency room or call 911 ? Do not lift more than fifteen pounds for 1-2 days. If you see a lot of blood, you probably did too much. ? Diet ? you may resume your normal diet. ? Pain control ? You may take extra strength Tylenol or Motrin for discomfort. ? Call if you have a fever over 100 degrees. [facility] 08-27-2023 Note [id number] [facility] 08-27-2023 Note Custom Cystoscopy ? Voiding after the procedure: there may be some pain, burning, urgency, frequency and blood tinged urine following the procedure. These symptoms usually resolve within 2-5 days. Drink the amount of fluid it takes to keep the urine pink to yellow or clear in color. Drinking enough water and fluids will help to ease any discomfort after your procedure. ? If you are having problems that seem out of the ordinary, please call. ? If unable to contact your physician and you feel it is an emergency, go to the nearest emergency room or call 911 ? Diet ? you may resume your normal diet. ? Activity ? you may resume your normal activities ? Call if you have a fever over 100 degrees. [facility] 07-02-2023 Note [id number] [facility] 07-02-2023 Note Custom Cystoscopy ? Voiding after the procedure: there may be some pain, burning, urgency, frequency and blood tinged urine following the procedure. These symptoms usually resolve within 2-5 days. Drink the amount of fluid it takes to keep the urine pink to yellow or clear in color. Drinking enough water and fluids will help to ease any discomfort after your procedure. ? If you are having problems that seem out of the ordinary, please call. ? If unable to contact your physician and you feel it is an emergency, go to the nearest emergency room or call 911 ? Diet ? you may resume your normal diet. ? Activity ? you may resume your normal activities ? Call if you have a fever over 100 degrees. [facility] 06-04-2023 Note [id number] [facility] 05-24-2023 Hospital Discharge instructions Patient Education 05/24/2023 11:08:16 Kegel Exercises Kegel Exercises Kegel exercises can help strengthen your pelvic floor muscles. The pelvic floor is a group of muscles that support your rectum, small intestine, and bladder. In females, pelvic floor muscles also help support the uterus. These muscles help you control the flow of urine and stool (feces). Kegel exercises are painless and simple. They do not require any equipment. Your provider may suggest Kegel exercises to: Improve bladder and bowel control. Improve sexual response. Improve weak pelvic floor muscles after surgery to remove the uterus (hysterectomy) or after , in females. Improve weak pelvic floor muscles after prostate gland removal or surgery, in males. Kegel exercises involve squeezing your pelvic floor muscles. These are the same muscles you squeeze when you try to stop the flow of urine or keep from passing gas. The exercises can be done while sitting, standing, or lying down, but it is best to vary your position. Ask your health care provider which exercises are safe for you. Do exercises exactly as told by your health care provider and adjust them as directed. Do not begin these exercises until told by your health care provider. Exercises How to do Kegel exercises: 1.Squeeze your pelvic floor muscles tight. You should feel a tight lift in your rectal area. If you are a female, you should also feel a tightness in your vaginal area. Keep your stomach, buttocks, and legs relaxed. 2.Hold the muscles tight for up to 10 seconds. 3.Breathe normally. 4.Relax your muscles for up to 10 seconds. 5.Repeat as told by your health care provider. Repeat this exercise daily as told by your health care provider. Continue to do this exercise for at least 4 6 weeks, or for as long as told by your health care provider. You may be referred to a physical therapist who can help you learn more about how to do Kegel exercises. Depending on your condition, your health care provider may recommend: Varying how long you squeeze your muscles. Doing several sets of exercises every day. Doing exercises for several weeks. Making Kegel exercises a part of your regular exercise routine. This information is not intended to replace advice given to you by your health care provider. Make sure you discuss any questions you have with your health care provider. Document Revised: 01/18/2022 Document Reviewed: 01/18/2022 [employer] Patient Education 2022 [employer]. Follow Up Care 05/10/2023 14:31:30 With:FLOR YBARRA, Feliz Agarwal, URL Address: [facility] [address] , [place] [address]- When: Unknown Comments:Sched Cysto and Uros [facility] 04-30-2023 Hospital Discharge instructions Patient Education 04/30/2023 14:15:36 Kegel Exercises Kegel Exercises Kegel exercises can help strengthen your pelvic floor muscles. The pelvic floor is a group of muscles that support your rectum, small intestine, and bladder. In females, pelvic floor muscles also help support the uterus. These muscles help you control the flow of urine and stool (feces). Kegel exercises are painless and simple. They do not require any equipment. Your provider may suggest Kegel exercises to: Improve bladder and bowel control. Improve sexual response. Improve weak pelvic floor muscles after surgery to remove the uterus (hysterectomy) or after , in females. Improve weak pelvic floor muscles after prostate gland removal or surgery, in males. Kegel exercises involve squeezing your pelvic floor muscles. These are the same muscles you squeeze when you try to stop the flow of urine or keep from passing gas. The exercises can be done while sitting, standing, or lying down, but it is best to vary your position. Ask your health care provider which exercises are safe for you. Do exercises exactly as told by your health care provider and adjust them as directed. Do not begin these exercises until told by your health care provider. Exercises How to do Kegel exercises: 1.Squeeze your pelvic floor muscles tight. You should feel a tight lift in your rectal area. If you are a female, you should also feel a tightness in your vaginal area. Keep your stomach, buttocks, and legs relaxed. 2.Hold the muscles tight for up to 10 seconds. 3.Breathe normally. 4.Relax your muscles for up to 10 seconds. 5.Repeat as told by your health care provider. Repeat this exercise daily as told by your health care provider. Continue to do this exercise for at least 4 6 weeks, or for as long as told by your health care provider. You may be referred to a physical therapist who can help you learn more about how to do Kegel exercises. Depending on your condition, your health care provider may recommend: Varying how long you squeeze your muscles. Doing several sets of exercises every day. Doing exercises for several weeks. Making Kegel exercises a part of your regular exercise routine. This information is not intended to replace advice given to you by your health care provider. Make sure you discuss any questions you have with your health care provider. Document Revised: 01/18/2022 Document Reviewed: 01/18/2022 [employer] Patient Education 2022 [employer]. Follow Up Care 01/07/2023 10:27:30 With:ELIZABETH MURRIETA, ILIANA Law, URL Address: [address] [place] [address] When: Unknown [facility] 12-26-2021 Evaluation note Encounter Date Diagnosis Assessment Notes Dec, Diarrhea (ICD-10 - R19.7) Pt to use Metamucil PRN if diarrhea returns Follow up PRN [place] Other Evaluation + Plan note No data available for this section [facility] [place] Evaluation + Plan note Future Appointments Appointment Date:02/26/2023 01:30:00 PM Scheduled Provider:ILIANA PACHECO PA-C Location:[facility] Appointment Type:URO New Patient Appointment Date:04/02/2023 02:40:00 PM Scheduled Provider:Bashir Alonzo MD [facility] Type: Open Future Scheduled Tests Laboratory* Creatinine 01/10/23 Radiology* CT Abdomen/Pelvis w/ Contrast 01/10/23 [facility] General Surgery [place] Evaluation + Plan note Future Appointments Appointment Date:02/06/2023 07:00:00 AM Scheduled Provider: Location[facility] Appointment Type:CT Abdomen/Pelvis Combo () Appointment Date:02/26/2023 01:30:00 PM Scheduled Provider:ILIANA PACHECO PA-C Location:[facility] Appointment Type:URO New Patient Appointment Date:04/02/2023 02:40:00 PM Scheduled Provider:Bashir Alonzo MD [facility] Appoint[facility] Type: Open Future Scheduled Tests Laboratory* Creatinine 01/10/23 Radiology* CT Abdomen/[facility]elvis [facility]/ Cont[facility] App[facility]ments Appointment Date:05/07/2023 08:00:00 AM Scheduled Provider: Location:[facility] Appointment Type: Medicare Wellness Subsequent Appointment Date:09/10/2023 01:00:00 PM Scheduled Provider:Bashir Alonzo MD [facility] App[facility] Type: Open Future Scheduled Tests Laboratory* Creatinine 01/10/23 [facility] evaluation + Plan note Future Appointments Appointment Date:09/10/2023 01:00:00 PM Scheduled Provider:Bashir Alonzo MD [facility] App[facility] Type: Open Appointment Date:05/08/2024 08:00:00 AM Scheduled Provider: [facility] Type: Medicare Wellness Subsequent Future Scheduled Tests Laboratory* [facility] Future App[facility]ments Appointment Date:05/30/2023 09:00:00 AM Scheduled Provider: Location:[facility] Appointment Type:Urology FT Appointment Date:06/18/2023 07:45:00 AM Scheduled Provider: Location:[facility] Appointment Type:Urology CALL PAT FT Appointment Date:07/02/2023 08:30:00 AM Scheduled Provider: Location:[facility] Appointment Type:Urology FT Appointment Date:09/10/2023 01:00:00 PM Scheduled Provider:Bashir Alonzo MD [facility] App[facility] Type:FM Open Appointment Date:05/08/2024 08:00:00 AM Scheduled Provider: Location:[facility] Appointment Type: Medicare Wellness Subsequent Future Scheduled Tests Laboratory* Creatinine 01/10/23 [facility] evaluation + Plan note Future Appointments Appointment Date:06/18/2023 07:45:00 AM Scheduled Provider: Location:[facility] Surgical Services Appointment Type:Urology CALL PAT FT Appointment Date:07/02/2023 08:30:00 AM Scheduled Provider: Location:[facility] Appointment Type:Urology FT Appointment Date:09/10/2023 01:00:00 PM Scheduled Provider:Bashir Alonzo MD [facility] App[facility] Type: Open Appointment Date:05/08/2024 08:00:00 AM Scheduled Provider: Location:[facility] Appointment Type: Medicare Wellness Subsequent Future Scheduled Tests Laboratory* Creatinine [facility]10[facility] Future App[facility]ments Appointment Date:10/08/2023 09:15:00 AM Scheduled Provider: Location:[facility] Appointment Type:Urology FT Appointment Date:10/22/2023 09:40:00 AM Scheduled Provider:ILIANA PACHECO [facility]-C [facility] Office Visit Appointment Date:10/25/2023 10:30:00 AM Scheduled Provider:Bernardino [facility]icona [facility] Type:Cardiology New Patient (FT) Appointment Date:11/25/2023 10:30:00 AM Scheduled Provider:Bashir Alonzo MD Location:[facility] Appointment Type: Open Appointment Date:05/08/2024 08:00:00 AM Scheduled Provider: Location:[facility] Appointment Type: Medicare Wellness Subsequent Future Scheduled Tests Laboratory* Creatinine 01/10/23 [facility] evaluation + Plan note Future Appointments Appointment Date:10/22/2023 09:40:00 AM Scheduled Provider:ILIANA PACHECO PA-C Location:[facility] Appointment Type:URO Office Visit Appointment Date:10/25/2023 10:30:00 AM Scheduled Provider:Bernardino Licona [facility] Appointment Type:Cardiology New Patient (FT) Appointment Date:11/25/2023 10:30:00 AM Scheduled Provider:Bashir Alonzo MD Location:[facility] Appointment Type: Open Appointment Date:05/08/2024 08:00:00 AM Scheduled Provider: Location:[facility] Appointment Type: Medicare Wellness Subsequent Future Scheduled Tests Laboratory* Creatinine [facility]10[facility] Future App[facility]ments Appointment Date:10/25/2023 10:30:00 AM Scheduled Provider:Bernardino Licona [facility] Appointment Type:Cardiology New Patient (FT) Appointment Date:11/25/2023 10:30:00 AM Scheduled Provider:Bashir Alonzo MD Location:[facility] Appointment Type: Open Appointment Date:01/21/2024 08:20:00 AM Scheduled Provider:ILIANA PACHECO PA-C Location:[facility] Appointment Type:URO Office Visit Appointment Date:05/08/2024 08:00:00 AM Scheduled Provider: Location:[facility] Appointment Type: Medicare Wellness Subsequent Future Scheduled Tests Laboratory* Creatinine 01/10/23 [facility] evaluation + Plan note Future Appointments Appointment Date:11/25/2023 10:30:00 AM Scheduled Provider:Bashir Alonzo MD Location:[facility] Appointment Type: Open Appointment Date:12/27/2023 10:45:00 AM Scheduled Provider:Bernardino Licona MD [facility] Type:Cardiology Follow Up (FT) Appointment Date:01/21/2024 08:20:00 AM Scheduled Provider:ILIANA PACHECO PA-C Location:[facility] Appointment Type:URO Office Visit Appointment Date:05/08/2024 08:00:00 AM Scheduled Provider: Location:[facility] Appointment Type:FM Medicare Wellness Subsequent Future Scheduled Tests Laboratory* [facility] Future App[facility]ments Appointment Date:01/23/2024 08:30:00 AM Scheduled Provider:Bashir Alonzo MD Location:[facility] Appointment Type: Open Appointment Date:01/24/2024 01:00:00 PM Scheduled Provider:Torito Donald MD [facility] Type:Cardiology Follow Up (FT) Appointment Date:03/24/2024 08:20:00 AM Scheduled Provider:ILIANA PACHECO PA-C Location:[facility] Appointment Type:URO Office Visit Appointment Date:05/12/2024 08:00:00 AM Scheduled Provider: Location:[facility] Appointment Type: Medicare Wellness Subsequent [facility] evaluation + Plan note Future Appointments Appointment Date:03/24/2024 08:20:00 AM Scheduled Provider:ILIANA PACHECO PA-C Location:[facility] Appointment Type:URO Office Visit Appointment Date:03/24/2024 01:00:00 PM Scheduled Provider:[facility] Appointment Date:05/12/2024 08:00:00 AM Scheduled Provider: Location:[facility] Appointment Type:FM Medicare Wellness Subsequent [facility] - Reported* Type Description Date Surgical History CHOLECYSTECTOMY Surgical History APPENDECTOMY Surgical History BOWEL RESECTION X 2 Surgical History COLOSTOMY REVERSAL X2 [facility] Other Hospital Discharge instructions No data available for this section [facility] Progress note No data available for this section [facility] Summary Purpose Family History No Family History Records FoundNo Family History Records FoundNo Family History Records Found No data available for this section No data available for this section No data available for this section No data available for this section No data available for this section No data available for this section No Family History Records Found Advance Directives No Advanced Directives Records FoundNo Advanced Directives Records FoundNo Advanced Directives Records FoundNo Advanced Directives Records Found Hospital Course Note [facility] Clinical Discharge Summary PERSON INFORMATION Name JULIANNE PABON Age 64 Years 1955 Sex FEMALE Language German PCP Clinton YBARRA, Bashir Wright Marital Status Med Service Med/Surg Acct# Arrival 06/13/2020 05:52:00 Visit Reason SURGERY - LEFT TOTAL KNEE Acuity LOS Address: [address] [place] [address] Comment: PROVIDER INFORMATION VITALS INFORMATION Vital Sign Triage Latest Temp Oral Temp Temporal Temp Intravascular Temp Axillary Temp Rectal 02 Sat 100 % 96 % Respiratory Rate Peripheral Pulse Rate Apical Heart Rate Blood Pressure / 78 mmHg / 79 mmHg Comment: MEDICAL INFORMATION Allergy Info: Tape; Cipro; morphine; codeine Prescriptions Given: acetaminophen (acetaminophen 500 mg oral tablet) 2 tab(s) Oral Every 6 hours as needed Pain - Mild. acetaminophen-oxycodone (Percocet 5/325 oral tablet) 1 tab(s) Oral every 6 hours as needed for pain. albuterol (Albuterol (Eqv-Proventil HFA) 90 mcg/inh inhalatio (more content not included)... Note Patient: JULIANNE PABON Age: 64 years Sex: FEMALE : 1955 Associated Diagnoses: None Author: Jakob Casey MD Postoperative Information Post Operative Note Health Status Allergies: Allergic Reactions (All) Severity Not Documented Cipro- Vomiting. Codeine- Headache. Morphine- Hives. Tape- No reactions were documented. Problem list (past medical history): All Problems GERD (gastroesophageal reflux disease) / SNOMED CT 807938459 / Confirmed Hypertension / SNOMED CT 2936173890 / Confirmed Sleep apnea / SNOMED CT 89469088 / Confirmed Physical Examination VS/Measurements Vital Signs (last 24 hrs) Last Charted Heart Rate Peripheral 80 bpm (JUN 13) Resp Rate 18 br/min (JUN 13) SBP 105 mmHg (JUN 13:) DBP 64 mmHg (JUN 13:) SpO2 98 % (JUN 13:) Weight 119.20 kg (JUN 13:) Height 157.48 cm (JUN 13:) Assessment Anesthetic outcome No anesthetic complications noted. Plan Transfer/ Discharge: To nursing unit, [facility] (more content not included)... Procedure Findings Note Patient: JULIANNE PABON Age: 64 years Sex: FEMALE : 1955 Associated Diagnoses: None Author: Jakob Casey MD Postoperative Information Post Operative Note Health Status Allergies: Allergic Reactions (All) Severity Not Documented Cipro- Vomiting. Codeine- Headache. Morphine- Hives. Tape- No reactions were documented. Problem list (past medical history): All Problems GERD (gastroesophageal reflux disease) / SNOMED CT 430171493 / Confirmed Hypertension / SNOMED CT 3736158587 / Confirmed Sleep apnea / SNOMED CT 20341875 / Confirmed Physical Examination VS/Measurements Vital Signs (last 24 hrs) Last Charted Heart Rate Peripheral 80 bpm (JUN 13) Resp Rate 18 br/min (JUN 13:) SBP 105 mmHg (JUN 13:) DBP 64 mmHg (JUN 13:) SpO2 98 % (JUN 13:) Weight 119.20 kg (JUN 13:) Height 157.48 cm (JUN 13:) Assessment Anesthetic outcome No anesthetic complications noted. Plan Transfer/ Discharge: To nursing unit, [facility] (more content not included)... Additional Source Comments INFORMATION SOURCE (unrecogn ized section and content) DATE CREATED AUTHOR 07/14/2020 [facility] DATE CREATED AUTHOR AUTHOR'S ORGANIZ ATION 07/21/2021 [facility] DATE CREATED AUTHOR AUTHOR'S ORGANIZ ATION 12/14/2022 [facility] DATE CREATED AUTHOR AUTHOR'S ORGANIZ ATION 01/25/2024 [facility] Cer[facility] REASON FOR VISIT (unrecogniz ed section and content) PT HERE FOR 3 MONTH FOLLOW U P DIARRHA. Patient Care team informatio n (unrecognized section and content) Personnel Name: Clinton YBARRA, Bashir Warner Address: Address: [address] [place], [place] [address] FOR RECORDS PERTAINING TO PATIENTS WHO ARE OR HAVE BEEN ENROLLED IN A CHEMICAL DEPENDENCY/SUBSTANCEABUSE PROGRAM, SOME INFORMATION MAY BE OMITTED. This clinical summary was aggregated from multiple sources. Caution should be exercised in using it in the provision of clinical care. This summary normalizes information from multiple sources, and as a consequence, information in this document may materially change the coding, format and clinical context of patient data. In addition, data may be omitted in some cases. CLINICAL DECISIONS SHOULD BE BASED ON THE PRIMARY CLINICAL RECORDS. [facility] [employer] [facility]. provides no warranty or guarantee of the accuracy or completeness of information in this document.
== END 2024-01-31 12:49 | disposition home or self-care (01) ==
PROVIDERS: PCP Family Medicine; Visit Provider Podiatrist Foot & Ankle Surgery
DX: R09.89 Other specified symptoms and signs involving the circulatory and respiratory systems (principal)
CPT/HCPCS: 93923